=== PATIENT | female | born 1945 | race Caucasian/White ===

== ENCOUNTER 2020-07-30 13:02 | Outpatient (REF) | payer MEDICARE, MEDICAID, SELFPAY ==
--- NOTE | 2020-07-30 15:44 | MHC.AU.ANR ---
Adult Audiological Evaluation Date of Visit: 07/30/20 Reason for Appointment: Audiological evaluation due to decreased hearing. Ms. Solis reports that she previously used hearing aids from [facility] but hasn't had them for a while. She notes difficulties hearing and understanding speech in most situations. Does patient feel they have a hearing loss?: Yes If Yes, Which Ear?: Both Ears Has hearing been tested previously?: Yes Previous Hearing Test Results: Previously tested and diagnosed with a hearing loss at [facility]. Records not available to be reviewed today. Hearing Handicap Inventory: HHIE SCORE: 36 Based on HHIE score, patient has: Severe perceived hearing handicap Ear History: Family History of Hearing Loss?: Yes: Sister Medical History: Medical History: Headache, High Blood Pressure Medical History (Other): Cerebral Palsy, hospitalized for a gastro obstruction 07/18/20 Otoscopy: Right Ear: Unremarkable Left Ear: Unremarkable Tympanometry: Tympanometry performed due to: To assess integrity of the middle ear system Right Ear: Normal Middle Ear System (Type A) Left Ear: Normal Middle Ear System (Type A) Hearing Evaluation: Transducer(s) Used: Insert Earphones, Bone Conduction Method: Conventional Audiometry Stimuli Used: Pure Tones Right Ear: Description of Hearing: Mild sloping to moderately severe sensorineural hearing loss. Left Ear: Description of Hearing: Mild sloping to moderately severe sensorineural hearing loss. Speech Recognition Threshold (SRT): Method Used: Monitored Live Voice Stimuli Used: Spondee Words Right Ear: 55 dBHL Left Ear: 55 dBHL Word Discrimination: Method: Recorded Lists Word Lists Used: NU-6 Right Ear: 72% at 80 dBHL Left Ear: 48% at 80 dBHL Recommendations: Audiological re-evaluation in one year. Trial with amplification is recommended. Medical clearance from a physician is required before fitting. Hearing Aid Fitting will be scheduled when all materials arrive. See Hearing Aid Evaluation report for more information. Diagnosis: Primary Diagnosis: H90.3 Bilateral Sensorineural Hearing Loss Services Performed: Services Performed: Comprehensive Audiological Evaluation (CPT 32813) Tympanometry (CPT 29909) Signature: Provider: Joe Zapata, CCC-A
--- NOTE | 2020-07-30 15:45 | MHC.AU.MED ---
Medical Clearance for Hearing Instrumentation Date: 07/30/20 Patient Name: Rain Solis Date of : 1945 Referring Provider: Claudio Walton MD We have seen your patient on 07/30/20 and have determined that they are a candidate for amplification (See accompanying report). Specifically, they would benefit from: Hearing aid use in both ears There is a statute that addresses Medical Evaluation Requirements prior to fitting a patient with a hearing aid. According to [place] statute 265 CMR:6.03(1), (a) General. Except as provided in 265 CMR 6.03(1)(b), a hearing therapy teacher shall not sell a hearing aid unless the prospective user has presented to the hearing therapy teacher a written statement signed by a licensed physician that states that the patient's hearing loss has been medically evaluated and the patient may be considered a candidate for a hearing aid. The medical evaluation must have taken place within the preceding six months. Please note: Due to the [place] Statute referenced above, we cannot accept a signature other than that of a licensed physician. RAILROAD SHOP INSPECTOR and PA signatures cannot be accepted. I am in agreement with the above recommendation. There is no medical contraindication for hearing instrumentation. Physician Signature Date Physician Name (Printed)
--- NOTE | 2020-07-30 15:45 | MHC.AU.HAS ---
Hearing Aid Evaluation Date of Visit: 07/30/20 Historical Information: Description of Hearing: Mild sloping to moderate sensorineural hearing loss bilaterally. Current personal amplification information, if applicable: Previously used [employer] BTEs. Summary: Ms. Solis was diagnosed with hearing loss today and binaural amplification is recommended to facilitate improved communication. Patient has Cerebral Palsy and has dexterity problems. Recommend rechargeable ITE style hearing aids. She was agreeable to this recommendation. Hearing Aid Prescription: Right ear: Chief Nursing Officer: [facility] Lab Model: Jayce 1600 ITE-R Battery Size: Rechargeable Color: Drexel Left ear: Chief Nursing Officer: [facility] Lab Model: Jayce 1600 ITE-R Battery Size: Rechargeable Color: Drexel Action Taken/Action Needed: Earmold Impressions Taken. Medical Clearance to be requested from PCP/ENT. Hearing Fitting to be scheduled when materials arrive. Aids will be ordered once MD clearance is received. PAGE in hold drawer. Signature: Provider: Joe Zapata, CCC-A
== END 2020-07-30 13:03 | disposition home or self-care (01) ==
LOC: HO.SH 13:02
PROVIDERS: Visit Provider Internal Medicine
DX: Z46.1 Encounter for fitting and adjustment of hearing aid (principal); H90.3 Sensorineural hearing loss, bilateral
CPT/HCPCS: 92557; 92567; 92591; V5275

== ENCOUNTER 2020-11-12 09:46 | Outpatient (REF) | payer MEDICARE, MEDICAID, SELFPAY | END 2020-11-12 09:47 | disposition home or self-care (01) | LOC: HO.HAP 09:46 | PROVIDERS: Visit Provider Internal Medicine | DX: Z46.1 Encounter for fitting and adjustment of hearing aid (principal); H90.3 Sensorineural hearing loss, bilateral | CPT/HCPCS: V5011; V5020; V5160; V5260 ==

== ENCOUNTER 2020-11-19 14:12 | Outpatient (REF) | payer MEDICARE, MEDICAID, SELFPAY | END 2020-11-19 14:13 | disposition home or self-care (01) | LOC: HO.HAP 14:12 | PROVIDERS: Visit Provider Internal Medicine | DX: Z13.89 Encounter for screening for other disorder (principal) ==

== ENCOUNTER 2024-04-16 10:00 | Emergency (ER) | payer MEDICARE, MEDICAID, SELFPAY ==
--- NOTE | ~2024-04-16 | CT_ITS ---
CLINICAL HISTORY: right side neck painfull mass CT soft tissue neck with contrast Comparison: None Findings: The right parotid gland is enlarged and increased in attenuation with adjacent fat stranding. The right submandibular gland is mildly enlarged with adjacent fat stranding, favored to be reactive. In the region of the right parotid duct there is linear increased attenuation measuring 1.2 cm in length which could be stones within the duct, soft tissue calcification or calcified atherosclerotic disease (series 9, image 32). There is similar linear increased attenuation on the left measuring up to 1.0 cm in length. No acute findings in the left parotid and submandibular glands. No fluid collection. Normal pharyngeal mucosa, oral cavity and larynx. Cervical lymph nodes measure up to 9 mm in short axis, reactive. No suspicious lymph nodes. Unremarkable thyroid. Moderate calcified atherosclerotic disease. Normal carotid space. Ground-glass opacity in the right upper lobe measures up to 5 mm, likely infectious/inflammatory. Linear consolidation in the superior segment of the right lower lobe could be subsegmental atelectasis or scarring. Suspect air trapping. The lung apices are clear. Impression: Right parotitis. This document has been electronically signed by: Gerda Pisano MD on 04/16/2024 13:38:07
--- NOTE | ~2024-04-16 | CT_ITS ---
CLINICAL HISTORY: poor historian with severe abd pain CT abdomen and pelvis without contrast Comparison: None Findings: Subsegmental atelectasis versus scarring at the lung bases. Moderate elevation of the right hemidiaphragm. Unremarkable gallbladder. Thick-walled bladder. No bladder distention. The anterior right aspect of the bladder protrudes towards an anterior abdominal wall hernia without entering the hernia. No bladder stone. Severe bilateral hydroureteronephrosis with thickening of mucosa in the renal pelvises and ureters. No ureteral stone. No nephrolithiasis. Status post hysterectomy. The other solid organs are unremarkable. Small hiatal hernia. Moderately increased stool quantity. The rectum and distal sigmoid colon are distended with stool, measuring up to 9.0 cm in transverse dimension. There is mild associated wall thickening. There is an anterior abdominal hernia to the right of midline which contains small bowel and colon. A normal appendix is likely identified. No secondary signs of acute appendicitis. Colonic diverticulosis. No aneurysm. Moderate to severe calcified atherosclerotic disease. No lymphadenopathy. No ascites. No acute osseous abnormality. Impression: Severe bilateral hydroureteronephrosis. Wall thickening of the mucosa of the renal pelvises, ureters and bladder could be secondary to infection. Correlate with urinalysis. No urinary tract stone. Distention of the distal sigmoid colon and rectum with stool may indicate fecal impaction. There is mild associated wall thickening which could be secondary to stercoral colitis. This document has been electronically signed by: Gerda Pisano MD on 04/16/2024 14:08:11
[2024-04-16 10:06] VITALS: BP 131/72; PULSE 74; O2SAT 94
[2024-04-16 10:09] VITALS: BP 121/55; PULSE 75; RESP 18; O2SAT 94; BMI 32.8
--- NOTE | 2024-04-16 10:33 | ED.GENADULT ---
HPI - General Adult General Chief complaint: General Medical Stated complaint: L NECK PAIN/SWELLING,LOW ABD PAIN FROM SNF PER EMS Time Seen by Provider: 04/16/24 10:18 Source: patient, EMS and RN notes reviewed Mode of arrival: EMS Limitations: no limitations History of Present Illness ED Provider: DR. Ferguson HPI narrative: This is a 78-year-old female brought in from intermediate by EMS for evaluation of new tender mass on the right side of the neck, abdominal pain, increase vaginal discharge. Patient with PMH of anxiety, cognitive functions and awareness disorder, type 2 DM, patient is able to give limited history stated that she had a Mass to the right side of the neck that is tender to touch, no fever, no chills, no difficulty breathing. Patient also is complaining of abdominal pain which unable to give more history about it. Related Data Previous Rx's ?Medication ?Instructions ?Recorded cephalexin 500 mg capsule 500 mg PO Q6H 10 days #40 caps 04/16/24 Allergies Allergy/AdvReac Type Severity Reaction Status Date / Time aspirin [ASPIRIN] Allergy Unknown VOMITING Verified 04/16/24 12:05 ibuprofen [IBUPROFEN] Allergy Unknown VOMITING Verified 04/16/24 12:05 oxycodone [OXYCODONE] Allergy Unknown UNKNOWN Verified 04/16/24 12:05 Review of Systems Review of Systems: All other systems are reviewed and are negative Constitutional: Reports as per HPI and Reports no additional constitutional complaints Eyes: Reports as per HPI and Reports no additional eye complaints Reports system reviewed and no additional complaints, except as documented Cardiovascular: Reports as per HPI and Reports no additional cardiovascular complaints Respiratory: Reports as per HPI and Reports no additional respiratory complaints Gastrointestinal: Reports as per HPI and Reports no additional gastrointestinal complaints Genitourinary: Reports no additional female genitourinary complaints Musculoskeletal: Reports no additional musculoskeletal complaints Skin/Breast: Reports system reviewed and no additional complaints, except as docu Psychiatric: Reports no additional psychiatric complaints Endocrine: Reports no additional endocrine complaints Hematologic/Lymphatic: Reports no additional hematologic/lymphatic complaints Allergic/Immunologic: Reports no additional allergic/immunologic complaints Reports system reviewed and no additional complaints, except as documented and Reports Abnormal speech present PMFSH Social History Social History Smoked in Last 30 Days: No Use of substances other than those prescribed or required for medical reasons: No Advance Directives: No Advance Directives Information Provided: No Physical Exam ED Vital Signs: Vital Signs - 24 hr 04/16/24 10:09 04/16/24 11:03 04/16/24 12:08 Temperature 98.2 F Pulse Rate 75 79 Respiratory Rate 18 18 18 Blood Pressure 121/55 L 102/66 Pulse Oximetry 94 94 Oxygen Delivery Method Room Air Room Air 04/16/24 15:20 Temperature Pulse Rate 78 Respiratory Rate 18 Blood Pressure 125/56 L Pulse Oximetry 95 Oxygen Delivery Method Room Air BMI result Body Mass Index 32.8 Vital signs have been reviewed and appear to be correct. Blood pressure elevated. Heart rate normal. Respiratory rate normal. Temperature normal. Oxygen saturation normal. Appearance: Alert. No acute distress. Head: Normal external exam. Normocephalic. Atraumatic. No Garrison signs noted. No raccoon eyes noted Eyes: PERRLA. EOMI. Conjunctiva and sclera normal. Eyelids normal. ENT: TM's Normal. Pharynx normal. Uvula midline. Moist mucous membranes. No trismus noted. No drooling noted. No muffled voice noted. Neck: Normal inspection. Neck supple. FROM. No adenopathy. Thyroid Normal. No meningeal signs. neck mass about 7 x 10 cm involving a right side of the neck, mass is tender to touch, ill-defined, no fluctuation. Patent airway, speak in full sentence, able to swallow. CVS: Normal heart rate and rhythm. Heart sound normal. No murmurs noted. Pulses normal throughout. Respiratory: No respiratory distress. Painless inspiration. Breath sounds normal. No wheezes/rales/rhonchi noted. Chest nontender. No accessory muscle usage noted or decreased air movement noted. Abdomen: Soft and nontender. Bowel sounds normal in all 4 quadrants. No distention noted. No organomegaly noted. No visible injury noted. Back: No CVA tenderness. Full range of motion noted. Skin: Skin warm and dry. Normal skin color. Normal skin turgor. No rashes/lesions/lacerations noted. Extremities: No lower extremity edema. Extremities exhibit normal range of motion. Extremities nontender. Neuro: Cranial nerve exam: II-XII are grossly intact No motor deficit. No sensory deficit. Reflexes normal. Course Reevaluation(s) Reevaluation #1: Right parotitis and UTI with no sepsis. Start the patient on Keflex should give double coverage for pancreatitis and UTI. patient received 1 dose of ceftriaxone in the ED. Time: 16:15 Medications Administered Discontinued Medications Generic Name Dose Route Start Last Admin Trade Name Freq PRN Reason Stop Dose Admin Ceftriaxone Sodium 1 gm 04/16/24 11:43 04/16/24 12:06 Ceftriaxone Sodium 1 Gm Vial IVPUSH 04/16/24 11:44 1 gm ONCE ONE Administration Sodium Chloride 1,000 mls @ 999 mls/hr 04/16/24 11:43 04/16/24 15:07 Ns IV 04/16/24 12:43 Infused .Q1H1M ONE Infusion Medical Decision Making Differential Diagnosis Differential Diagnoses: The differential diagnosis associated with the presentation includes (UTI, pyelonephritis, obstructive uropathy, lymphadenopathy, parotitis.) Admission/Observation Consideration of admission/observation: Escalation of care including admission/observation considered Lab Data MDM Lab Attestation statement: I reviewed the patient's lab results. 04/16/24 10:52 04/16/24 11:26 Labs: Lab Results 04/16/24 04/16/24 04/16/24 Range/Units 10:52 11:26 12:04 WBC 17.9 H (4.8-10.8) X10*3/uL RBC 3.98 L (4.20-5.50) X10*6/uL Hgb 10.5 L (12.0-16.0) g/dl Hct 34.0 L (37.0-47.0) % MCV 85.4 (80.0-98.0) fL MCH 26.4 L (27.0-33.0) pg MCHC 30.9 L (31.0-35.0) g/dl RDW 13.2 (11.0-16.0) % Plt Count 481 H (160-400) X10*3/uL MPV 9.2 L (9.4-12.3) fL Immature Gran % (Auto) 0.6 H (0.0-0.4) % Neut % (Auto) 79.2 H (45-73) % Lymph % (Auto) 10.3 L (20-40) % [place] % (Auto) 8.2 (2-11) % Eos % (Auto) 1.3 (0-4) % Baso % (Auto) 0.4 (0-2) % Lymph # (Auto) 1.8 (1.2-4.9) X10*3/uL [place] # (Auto) 1.5 H (0.1-1.2) X10*3/uL Eos # (Auto) 0.2 (0.0-0.4) X10*3/uL Baso # (Auto) 0.1 (0.0-0.2) X10*3/uL Abs Immat Gran (auto) 0.10 H (0.00-0.03) X10*3/uL Absolute Neuts (auto) 14.2 H (2.0-8.3) x10*3/uL Absolute Nucleated RBC 0.000 (0.0-0.012) X10*3/uL Nucleated RBC % (auto) 0.0 (0.0-0.2) /100WBC Sodium 145 (135-145) mmol/L Potassium 4.6 (3.3-5.1) mmol/L Chloride 114 H (96-108) mmol/L Carbon Dioxide 19 L (22-29) mmol/L Anion Gap 17 (12-20) BUN 83 H (9-16) mg/dL Creatinine 2.17 H (0.5-1.4) mg/dL Estim Creat Clear Calc 22.6 Estimated GFR 22 Random Glucose 122 H (60-115) mg/dL Lactic Acid 0.8 (0.5-2.0) mmol/L Calcium 10.6 H (8.4-10.2) mg/dL Total Bilirubin 0.2 (0.0-1.0) mg/dL Direct Bilirubin < 0.2 (0.0-0.5) mg/dL AST 13 (5-31) U/L ALT < 6 (0-31) U/L Alkaline Phosphatase 98 (39-117) U/L Troponin I High Sens < 2.7 (<3.5-17.0) ng/L Total Protein 9.2 H (6.5-8.0) g/dL Albumin 3.6 (3.5-5.0) g/dL Lipase 55 (8-78) U/L Urine Color Yellow Urine Appearance Turbid Urine pH 8.5 (5.0-9.0) Ur Specific [place] 1.020 (1.005-1.025) Urine Protein 300 (3+) H (Neg-Trace) mg/dL Urine Glucose (UA) Negative (Negative) mg/dL Urine Ketones Negative (Negative) mg/dL Urine Blood Large (3+) H (Negative) Urine Nitrite Negative (Negative) Ur Leukocyte Esterase Large (3+) H (Negative) Urine RBC >20 H (0-2) /HPF Urine WBC >50 H (0-5) /HPF Ur Squamous Epith Cells 3-5 (0-2) /HPF Urine Bacteria 4+ (None Seen) Hyaline Casts >20 (0-2) /LPF Influenza Type A (PCR) NEGATIVE (Negative) Influenza Type B (PCR) NEGATIVE (Negative) RSV RNA Qual (PCR) NEGATIVE (Negative) SARS-CoV-2 RNA (RT-PCR) NEGATIVE (Negative) Independent Interpretation I performed an independent interpretation of an: CT Scan (Soft tissue neck and abdomen and pelvis: Parotitis/Severe bilateral hydroureteronephrosis. Wall thickening of the mucosa of the renal pelvises, ureters and bladder could be secondary to infection. Correlate with urinalysis. No urinary tract stone. Distention of the distal sigmoid colon and rectum) Discharge Plan Discharge Clinical Impression: Acute parotitis, Acute UTI Patient Disposition: Xfer [facility] Instructions: Urinary Tract Infection in Women (ED), Sialoadenitis (ED) Prescriptions: New cephalexin 500 mg capsule 500 mg PO Q6H 10 Days Qty: 40 0RF Referrals: Margie Noguera MD [Primary Care Provider] - Print Language: Syrian
[2024-04-16 11:00] LABS: MANUAL DIFF FLAG NO
[2024-04-16 11:03] VITALS: RESP 18; TEMP 36.8
[2024-04-16 11:03] LABS: Basophils Absolute Auto 0.1 X10*3/uL (0.0-0.2); Basophils Percent Auto 0.4 % (0-2); Eosinophils Absolute Auto 0.2 X10*3/uL (0.0-0.4); Eosinophils Percent Auto 1.3 % (0-4); Hemoglobin 10.5 g/dl (12.0-16.0); Imm Gran Pct Auto 0.6 % (0.0-0.4); Lymphocytes Absolute Auto 1.8 X10*3/uL (1.2-4.9); Lymphocytes Percent Auto 10.3 % (20-40); Mean Corpuscular HGB Conc 30.9 g/dl (31.0-35.0); Mean Corpuscular Hemoglobin 26.4 pg (27.0-33.0); Mean Corpuscular Volume 85.4 fL (80.0-98.0); Mean Platelet Volume 9.2 fL (9.4-12.3); Monocytes Absolute Auto 1.5 X10*3/uL (0.1-1.2); Monocytes Percent Auto 8.2 % (2-11); Neutrophils Absolute Auto 14.2 x10*3/uL (2.0-8.3); Neutrophils Percent Auto 79.2 % (45-73); Platelet Count 481 X10*3/uL (160-400); Red Blood Count 3.98 X10*6/uL (4.20-5.50); Red Cell Distribution Width 13.2 % (11.0-16.0); White Blood Count 17.9 X10*3/uL (4.8-10.8)
[2024-04-16 11:04] LABS: Appearance Urine Turbid; Color Urine Yellow; Glucose Urine UA Negative (Negative); Leukocyte Esterase Urine Large (3+) (Negative); Nitrite Urine Negative (Negative); PH 8.5 (5.0-9.0); UMIC TRIGGER UACC YES; Urine Blood Large (3+) (Negative); Urine Ketones Negative (Negative); Urine Protein 300 (3+) mg/dL (Neg-Trace)
--- NOTE | 2024-04-16 11:12 | PC.NURSE ---
Pt presents to ED via EMS from [facility], per staff pt has had increase in vaginal discharge, lower ABD pain and swelling/ mass to right side of neck all starting last night at some time. Pt is alert, some confusion at baseline, hx of CP and TBI. Breathing even and unlabored, skin dry and pale. Noted to have significant swelling to right side of neck, no difficulties breathing or swallowing.
[2024-04-16 11:18] LABS: Bacteria Urine 4+ (None Seen); Hyaline Casts Urine >20 /LPF (0-2); RBC Urine >20 /HPF (0-2); UACC Culture Trigger YES; WBC Urine >50 /HPF (0-5)
[2024-04-16 11:45] LABS: Influenza A PCR NEGATIVE (Negative); Influenza B PCR NEGATIVE (Negative); Resp Syncy Virus RNA Qual PCR NEGATIVE (Negative); SARS COV2 PCR INHOUSE NEGATIVE (Negative)
[2024-04-16 11:55] LABS: Alanine Aminotransferase < 6 U/L (0-31); Albumin Level 3.6 g/dL (3.5-5.0); Alkaline Phosphatase 98 U/L (39-117); Anion Gap 17 (12-20); Aspartate Amino Transferase 13 U/L (5-31); Bilirubin Direct < 0.2 mg/dL (0.0-0.5); Bilirubin Total 0.2 mg/dL (0.0-1.0); Blood Urea Nitrogen 83 mg/dL (9-16); Calcium 10.6 mg/dL (8.4-10.2); Carbon Dioxide 19 mmol/L (22-29); Chloride 114 mmol/L (96-108); Creatinine Clr Calc Pharmacy 22.6; Estimated Glomerular Filt Rate 22; Glucose Random 122 mg/dL (60-115); Lipase 55 U/L (8-78); Potassium 4.6 mmol/L (3.3-5.1); Sodium 145 mmol/L (135-145); Total Protein 9.2 g/dL (6.5-8.0)
[2024-04-16 12:04] LABS: Troponin-I High Sensitivity < 2.7 ng/L (<3.5-17.0)
[2024-04-16] MEDS: 0.9 % Sodium Chloride 1,000 ML 999 ML IV (12:05)
[2024-04-16] MEDS: cefTRIAXone sodium 1 GM VIAL IVPUSH (12:06)
[2024-04-16 12:08] VITALS: BP 102/66; PULSE 79; RESP 18; O2SAT 94
[2024-04-16 12:25] LABS: Lactic Acid 0.8 mmol/L (0.5-2.0)
[2024-04-16 15:20] VITALS: BP 125/56; PULSE 78; RESP 18; O2SAT 95
[2024-04-16 17:00] VITALS: BP 127/56; PULSE 68; RESP 16; TEMP 36.9; O2SAT 94
[2024-04-20 13:21] LABS: Glucose, Whole Blood 138 mg/dL (60-115)
== END 2024-04-16 17:15 | disposition skilled nursing facility (03) ==
PROVIDERS: Emergency Provider Emergency Medicine; PCP Internal Medicine
DX: M54.2 Cervicalgia (principal)
CPT/HCPCS: 0241U; 36415; 70490; 74176; 80048; 80076; 81001; 81003; 83605; 83690; 84484; 85025; 87040; 87086; 99285; J0696

== ENCOUNTER → 2024-04-16 10:29 | Outpatient (BNV) | payer MEDICARE, MEDICAID, SELFPAY | PROVIDERS: Emergency Provider Emergency Medicine; PCP Internal Medicine; Visit Provider Radiology Diagnostic Radiology | DX: N13.732 Vesicoureteral-reflux with reflux nephropathy with hydroureter, bilateral (principal); K11.8 Other diseases of salivary glands | CPT/HCPCS: 70491; 74176 ==

== ENCOUNTER 2024-04-19 13:03 | Inpatient (IN) | payer MEDICARE, MEDICAID, SELFPAY ==
[2024-04-19] VITALS (12 sets, daily range): BP systolic 127–200; BP diastolic 56–98; PULSE 64–97; RESP 12–25; TEMP 36.2–39.2; O2SAT 89–100; BMI 30.9
--- NOTE | ~2024-04-19 | CT_ITS ---
CLINICAL HISTORY: AMS CT head without contrast. COMPARISON: None FINDINGS: The visualized paranasal sinuses are clear. The mastoid air cells are clear. No calvarial fracture. Atherosclerotic intracranial vasculature. No evidence for mass or mass effect. No intracranial hemorrhage or abnormal extra-axial fluid collection. No CT evidence of acute infarct. The ventricles are proportional with the degree of [id number] global cerebral volume loss without evidence of hydrocephalus. Basilar cisterns are patent. There are periventricular areas of low attenuation compatible with mild white matter small vessel disease. Posterior fossa appears unremarkable. IMPRESSION: 1. No acute intracranial findings. This document has been electronically signed by: Timmy Valdez MD on 04/19/2024 15:49:56
--- NOTE | ~2024-04-19 | CT_ITS ---
CLINICAL HISTORY: worsening R sided neck mass, altered CT soft tissue neck without contrast. COMPARISON: CT soft tissue neck dated 04/16/24 at 12:30 EST FINDINGS: There is edema within and adjacent to the right parotid gland extending within the subcutaneous soft tissues along the most inferior aspect. No organizing fluid collection identified. Similar appearance of linear calcification measuring 0.2 cm in the region of the right parotid duct (series 6/coronal, image 37). There is a similar linear calcification on the left measuring 1.0 cm (series 6, image 34). Parotid duct is not dilated. Visualized lung apices are unremarkable. Normal thyroid gland. Mild enlargement of the right submandibular gland with the adjacent edema Orbital soft tissues are unremarkable. Parapharyngeal fat pads are preserved. Visualized paranasal sinuses and mastoid air cells are clear. Normal epiglottis. Visualized portions of the trachea and esophagus are unremarkable. No supraclavicular lymphadenopathy. Multiple normal-sized jugular chain lymph nodes, [id number]-left, likely reactive. Calcified plaque present at the carotid bulb on the right. Visualized intracranial structures are unremarkable. Straightening of the normal cervical lordosis. Advanced multilevel cervical spondylosis. Patient is edentulous. No acute fracture identified. IMPRESSION: 1. Right-sided parotitis with question mild right submandibular sialadenitis, similar to prior imaging. No organizing fluid collection identified. Linear calcification measuring 1.2 cm in the region of right parotid duct may represent a sialolith however parotid duct is not dilated. This appears stable from prior imaging. 2. Multiple normal-sized jugular chain lymph nodes, right more so than left, likely reactive. This document has been electronically signed by: Timmy Valdez MD on 04/19/2024 15:49:28
--- NOTE | ~2024-04-19 | XR_ITS ---
CLINICAL HISTORY: weakness ; attempted to fix rotation of PT in bed, best image obtained. Single view of the chest. COMPARISON: None FINDINGS: Patient positioning and overlying soft tissue mildly limits evaluation. Borderline cardiomegaly. Tortuous atherosclerotic thoracic aorta. Low lung volumes. No consolidation. No definite pleural effusion. No pneumothorax. No acute fracture identified. IMPRESSION: 1. Technically limited study secondary to patient positioning. 2. Low lung volumes. No consolidation. This document has been electronically signed by: Timmy Valdez MD on 04/19/2024 14:19:07
--- NOTE | 2024-04-19 13:20 | ECG_ITS ---
Test Reason : WEAKNESS Blood Pressure : / mmHG Vent. Rate : 068 BPM Atrial Rate : 068 BPM P-R Int : 164 ms QRS Dur : 086 ms QT Int : 398 ms P-R-T Axes : -29 011 -24 degrees QTc Int : 423 ms Normal sinus rhythm Nonspecific T wave abnormality Abnormal ECG No previous ECGs available Referred By: Dorothy Galloway Electronically Signed By:USMAN STINSON MD
[2024-04-19] MEDS: Acetaminophen 1,000 MG/100 ML PIGGYBACK 400 MG IV ×2 (13:35→21:32)
[2024-04-19] MEDS: Lactated Ringers 1,000 ML 999 ML IV (13:35)
--- NOTE | 2024-04-19 13:39 | ED_ITS ---
HPI - Female Genitourinary General Chief complaint: Urogenital-Female Stated complaint: AMS, ?SEPSIS, RECENT UTI DIAG PER EMS Time Seen by Provider: 04/19/24 13:18 Source: EMS and old records reviewed Mode of arrival: EMS Limitations: altered mental status History of Present Illness ED Provider: KITTY SIN Narrative: 78 yo female with PMH of cerebral palsy, CHF, GERD, ICH, DM2, HTN, urinary retention, aniety, depression, FTT, diverticulitis, on eliquis has hx of thrombocytosis unclear cause who comes in altered today after visit here 04/16 dx with acute R parotitis and UTI - WBC count 17, given IV ceftriaxone and DC on cephalexin. She reportedly was cheeking the antibiotic. Had CT scan done on 04/16 as well R parotid gland infection no abscess, ?stones, CT scan of abdomen severe bilateral hydroureteronephrosis and mucosa thickening of urinary system - UA positive but culture contamined. She is back after staff felt she was altered today and temp 102. On arrival she localizes to pain and withdraws. She is not answering questions. MD elicited complaint: other (fever, AMS) Onset (ago): day(s) (today this AM) Severity: severe Vaginal discharge: none Vaginal bleeding: none Relieving factors: none Associated symptoms: loss of appetite, weakness and fever Treatment prior to arrival: none Related Data Previous Rx's ?Medication ?Instructions ?Recorded cephalexin 500 mg capsule 500 mg PO Q6H 10 days #40 caps 04/16/24 Allergies Allergy/AdvReac Type Severity Reaction Status Date / Time aspirin [ASPIRIN] Allergy Unknown VOMITING Verified 04/19/24 13:11 ibuprofen [IBUPROFEN] Allergy Unknown VOMITING Verified 04/19/24 13:11 oxycodone [OXYCODONE] Allergy Unknown UNKNOWN Verified 04/19/24 13:11 Review of Systems 2 Review of Systems: ROS unable to be obtained due to altered mental status [facility] Past Medical History Attestation statement: The following information was validated with the patient. Source: old records reviewed Medical History HTN (hypertension) TBI (traumatic brain injury) Encephalopathy acute Anxiety and depression [facility] current use of anticoagulant Thrombocytosis DM2 (diabetes mellitus, type 2) Cerebral palsy Social History Social History (Updated 04/19/24 @ 13:49 by Dorothy Galloway DO) Patient Tobacco Use Status: Tobacco use Unknown Advance Directives: No Advance Directives Information Provided: No Do you have a plan to hurt others: No Plan Physical Exam 2 Vital Signs: Vital Signs: Last Vital Signs Temp 99.9 F 04/19/24 15:57 Pulse 65 04/19/24 15:58 Resp 25 H 04/19/24 15:57 BP 193/86 H 04/19/24 15:58 Pulse Ox 100 04/19/24 15:57 O2 Del Method Nasal Cannula 04/19/24 15:57 O2 Flow Rate 2 04/19/24 15:57 BMI result Body Mass Index 30.9 Appearance:Somnolent, wakes to tactile stimuli. Mild acute distress. Eyes: Pupils equal, round and reactive to light. ENT: Pharynx dry MM Neck:R parotid area there is ttp and redness no stranding down the neck CVS: Normal heart rate and rhythm. Pulses normal. Respiratory: No respiratory distress. Breath sounds normal. Abdomen: Soft and nontender. does not grimace Skin: Skin warm and dry. Normal skin color. Normal skin turgor. Extremities: No lower extremity edema. atrophied extremities Neuro: cannot participate in exam Course Course Course Narrative: marked HTN will order US Medications Administered Discontinued Medications Generic Name Dose Route Start Last Admin Trade Name Freq PRN Reason Stop Dose Admin Piperacillin Sod/Tazobactam 100 mls @ 200 mls/hr 04/19/24 13:20 04/19/24 14:11 Sod 4.5 gm/ Sodium Chloride IV 04/19/24 13:49 Infused ONCE ONE Infusion Acetaminophen 1,000 mg in 100 mls @ 400 mls/hr 04/19/24 13:21 04/19/24 13:52 Ofirmev IV 04/19/24 13:35 Infused ONCE ONE Infusion Lactated Ringer's 1,000 mls @ 999 mls/hr 04/19/24 13:21 04/19/24 14:45 Lr IV 04/19/24 14:21 Infused .Q1H1M ONE Infusion Vancomycin HCl 2,000 mg in 500 mls @ 250 mls/hr 04/19/24 13:54 04/19/24 14:20 Vancomycin/Ns IV 04/19/24 15:53 250 mls/hr ONCE ONE Administration Labetalol HCl 5 mg 04/19/24 15:47 04/19/24 15:58 Labetalol Hcl 100 Mg/20 Ml Vial IVPUSH 04/19/24 15:48 5 mg ONCE ONE Administration Medical Decision Making Medical Decision Making [facility] Narrative: 78 yo female with PMH of cerebral palsy, CHF, GERD, ICH, DM2, HTN, urinary retention, aniety, depression, FTT, diverticulitis, on eliquis has hx of thrombocytosis here with c/o fever and AMS. At this time basic labs, cultures, CXR, CT scan of R parotid to look for abscess, empiric zosyn. IV tylenol and start on fluids. Suspect parotid infection urine culture was negative but CT scan of abdomen was concerning. Differential Diagnosis Differential Diagnoses: The differential diagnosis associated with the presentation includes parotid infection, UTI, viral infection, encephalopathy Admission/Observation Consideration of admission/observation: Escalation of care including admission/observation considered received a liter of NS, Na is 158, BP has been high I ordered low dose labetalol no hypotension and lactic acid is normal Consult Healthcare Provider Management of the patient was discussed with: Hospitalist (will admit) Lab Data [facility] Lab Attestation statement: I reviewed the patient's lab results. 04/19/24 13:39 04/19/24 13:39 Labs: Lab Results 04/19/24 04/19/24 Range/Units 13:39 13:45 WBC 22.3 H (4.8-10.8) X10*3/uL RBC 4.25 (4.20-5.50) X10*6/uL Hgb 11.0 L (12.0-16.0) g/dl Hct 36.8 L (37.0-47.0) % MCV 86.6 (80.0-98.0) fL MCH 25.9 L (27.0-33.0) pg MCHC 29.9 L (31.0-35.0) g/dl RDW 13.7 (11.0-16.0) % Plt Count 574 H (160-400) X10*3/uL MPV 9.3 L (9.4-12.3) fL Immature Gran % (Auto) 2.4 H (0.0-0.4) % Neut % (Auto) 82.1 H (45-73) % Lymph % (Auto) 11.4 L (20-40) % [place] % (Auto) 3.8 (2-11) % Eos % (Auto) 0.0 (0-4) % Baso % (Auto) 0.3 (0-2) % Lymph # (Auto) 2.5 (1.2-4.9) X10*3/uL [place] # (Auto) 0.9 (0.1-1.2) X10*3/uL Eos # (Auto) 0.0 (0.0-0.4) X10*3/uL Baso # (Auto) 0.1 (0.0-0.2) X10*3/uL Abs Immat Gran (auto) 0.53 H (0.00-0.03) X10*3/uL Absolute Neuts (auto) 18.3 H (2.0-8.3) x10*3/uL Absolute Nucleated RBC 0.000 (0.0-0.012) X10*3/uL Nucleated RBC % (auto) 0.0 (0.0-0.2) /100WBC VBG pH 7.35 (7.32-7.43) VBG pCO2 32 mmHg VBG pO2 96 mmHg VBG HCO3 18 L (22-26) mmol/L VBG O2 Saturation 98.0 % VBG Base Excess -6.3 mmol/L Sodium 158 H (135-145) mmol/L Potassium 4.3 (3.3-5.1) mmol/L Chloride 130 H (96-108) mmol/L Carbon Dioxide 18 L (22-29) mmol/L Anion Gap 14 (12-20) BUN 89 H (9-16) mg/dL Creatinine 1.82 H (0.5-1.4) mg/dL Estim Creat Clear Calc 25.2 Estimated GFR 27 Random Glucose 164 H (60-115) mg/dL Lactic Acid 1.0 (0.5-2.0) mmol/L Calcium 10.3 H (8.4-10.2) mg/dL Magnesium 2.6 (1.6-2.6) mg/dL Total Bilirubin 0.2 (0.0-1.0) mg/dL Direct Bilirubin < 0.2 (0.0-0.5) mg/dL AST 15 (5-31) U/L ALT 7 (0-31) U/L Alkaline Phosphatase 101 (39-117) U/L Ammonia 42 (13-55) umol/L Troponin I High Sens 13.1 D (<3.5-17.0) ng/L C-Reactive Protein 6.63 H (< or = 0.50) mg/dL Total Protein 9.1 H (6.5-8.0) g/dL Albumin 3.6 (3.5-5.0) g/dL Lipase 41 (8-78) U/L Procalcitonin 0.09 ng/mL Urine Color Yellow Urine Appearance Turbid Urine pH 6.0 (5.0-9.0) Ur Specific [place] 1.015 (1.005-1.025) Urine Protein 300 (3+) H (Neg-Trace) mg/dL Urine Glucose (UA) Negative (Negative) mg/dL Urine Ketones Negative (Negative) mg/dL Urine Blood Large (3+) H (Negative) Urine Nitrite Negative (Negative) Ur Leukocyte Esterase Large (3+) H (Negative) Urine RBC 11-20 H (0-2) /HPF Urine WBC >50 H (0-5) /HPF Ur Squamous Epith Cells 0-2 (0-2) /HPF Urine Bacteria 4+ (None Seen) Hyaline Casts 0-2 (0-2) /LPF Influenza Type A (PCR) NEGATIVE (Negative) Influenza Type B (PCR) NEGATIVE (Negative) RSV RNA Qual (PCR) NEGATIVE (Negative) SARS-CoV-2 RNA (RT-PCR) NEGATIVE (Negative) Independent Interpretation I performed an independent interpretation of an: EKG, Plain X-Ray (no pneumonia) and CT Scan (R parotid infection but no abscess) Interpretation: Rate: Rhythm: [place]: Normal P waves. Normal [place]AY[place]. Normal QRS complex. ST T wave : qTC: prior studies: The study has been interpreted contemporaneously by me. . Radiology Impression Discussion of test interpretation with radiology: I have reviewed the radiologist's reading. Independent Historian Clinical information obtained from an independent historian. History obtained from or confirmed by: EMS External Record Review External record reviewed: Outpatient record Critical Care Time Critical Care Time Critical Care Time: Yes Total Critical Care Time: 45 Attestation: review of records, sepsis work up, family discussion, admisison, IV labetalol for persistent HTN on multiple rechecks I attest to this time spent taking care of the patient Discharge Plan Discharge Clinical Impression: Acute parotitis, Acute encephalopathy, Acute hypernatremia Elevated WBC count Qualifiers: Leukocytosis type: unspecified Qualified Code(s): D72.829 - Elevated white blood cell count, unspecified Fever Qualifiers: Fever type: unspecified Qualified Code(s): R50.9 - Fever, unspecified Patient Disposition: Admitted As Inpatient Print Language: Belarusian
[2024-04-19] MEDS: Piperacillin Sodium/Tazobactam 4.5 GM in 0.9 % Sodium Chloride 100 ML IV (13:41)
--- NOTE | 2024-04-19 13:45 | PC.NURSE ---
pt [facility] from [facility] as a sepsis alert - dx w/ UTI on 04/16 at [facility]. during ED visit, pt noted to have acute parotitis as well as a UTI. during ED visit, pt received IV abx. pt then discharged back to facility w/ PO abx after being medically cleared. today, family members visited pt at facility and noted pt to be difficult to arouse with a fever of 99 temporally. pt also found to be cheeking PO abx and not physically swallowing them. hx cerebral palsy - baseline leans to the right/baseline dysphagia. upon ED arrival - pt responsive to physical stimuli only. pt noted to have strong urine odor. rectal temp obtained/displayed 102.6 - otherwise vss and up to date. 20gIV in the left forearm via EMS - patent/intact. 18gIV in the right AC - labs obtained/sent to lab. pt currently on RA w/o difficulty - no sob/wob noted. respirations even/unlabored. plan of care ongoing.
[2024-04-19 13:48] LABS: MANUAL DIFF FLAG NO
[2024-04-19 13:49] LABS: Basophils Absolute Auto 0.1 X10*3/uL (0.0-0.2); Basophils Percent Auto 0.3 % (0-2); Hematocrit 36.8 % (37.0-47.0); Imm Gran Abs Auto 0.53 X10*3/uL (0.00-0.03); Imm Gran Pct Auto 2.4 % (0.0-0.4); Lymphocytes Absolute Auto 2.5 X10*3/uL (1.2-4.9); Lymphocytes Percent Auto 11.4 % (20-40); Mean Corpuscular HGB Conc 29.9 g/dl (31.0-35.0); Mean Corpuscular Hemoglobin 25.9 pg (27.0-33.0); Mean Corpuscular Volume 86.6 fL (80.0-98.0); Mean Platelet Volume 9.3 fL (9.4-12.3); Monocytes Absolute Auto 0.9 X10*3/uL (0.1-1.2); Monocytes Percent Auto 3.8 % (2-11); Neutrophils Absolute Auto 18.3 x10*3/uL (2.0-8.3); Neutrophils Percent Auto 82.1 % (45-73); Platelet Count 574 X10*3/uL (160-400); Red Blood Count 4.25 X10*6/uL (4.20-5.50); Red Cell Distribution Width 13.7 % (11.0-16.0); White Blood Count 22.3 X10*3/uL (4.8-10.8)
[2024-04-19 13:50] LABS: VBG Base Excess -6.3 mmol/L; VBG HCO3 18 mmol/L (22-26); VBG pCO2 32 mmHg; VBG pH 7.35 (7.32-7.43); VBG pO2 96 mmHg
[2024-04-19 13:50] LABS: Venous Blood Gas Refer to POC result
[2024-04-19 13:54] LABS: Ammonia 42 umol/L (13-55); Appearance Urine Turbid; Color Urine Yellow; Glucose Urine UA Negative (Negative); Leukocyte Esterase Urine Large (3+) (Negative); Nitrite Urine Negative (Negative); Specific Gravity - Urine 1.015 (1.005-1.025); UMIC TRIGGER UACC YES; Urine Blood Large (3+) (Negative); Urine Ketones Negative (Negative); Urine Protein 300 (3+) mg/dL (Neg-Trace)
[2024-04-19 14:01] LABS: Bacteria Urine 4+ (None Seen); Hyaline Casts Urine 0-2 /LPF (0-2); Squamous Epithelial Cell Urine 0-2 /HPF (0-2); UACC Culture Trigger YES; WBC Urine >50 /HPF (0-5)
[2024-04-19 14:08] LABS: Troponin-I High Sensitivity 13.1 ng/L (<3.5-17.0)
[2024-04-19 14:14] LABS: Alanine Aminotransferase 7 U/L (0-31); Albumin Level 3.6 g/dL (3.5-5.0); Alkaline Phosphatase 101 U/L (39-117); Anion Gap 14 (12-20); Aspartate Amino Transferase 15 U/L (5-31); Bilirubin Direct < 0.2 mg/dL (0.0-0.5); Bilirubin Total 0.2 mg/dL (0.0-1.0); Blood Urea Nitrogen 89 mg/dL (9-16); C Reactive Protein 6.63 mg/dL (< or = 0.50); Calcium 10.3 mg/dL (8.4-10.2); Carbon Dioxide 18 mmol/L (22-29); Chloride 130 mmol/L (96-108); Creatinine Clr Calc Pharmacy 25.2; Estimated Glomerular Filt Rate 27; Glucose Random 164 mg/dL (60-115); Lipase 41 U/L (8-78); Magnesium 2.6 mg/dL (1.6-2.6); Potassium 4.3 mmol/L (3.3-5.1); Sodium 158 mmol/L (135-145); Total Protein 9.1 g/dL (6.5-8.0)
--- NOTE | 2024-04-19 14:15 | PC.NURSE ---
pt noted to be 89% on RA. pt seems to be in no respiratory distress. pt positioned upright to promote patent airway. pt placed on 2L via NC - SPO2 @ 93%. provider notified/aware of results.
[2024-04-19] MEDS: vancomycin/NS 2,000 MG/500 ML PLAST..BAG 250 MG IV (14:20)
[2024-04-19 14:28] LABS: Procalcitonin 0.09 ng/mL
[2024-04-19 14:29] LABS: Influenza A PCR NEGATIVE (Negative); Influenza B PCR NEGATIVE (Negative); Resp Syncy Virus RNA Qual PCR NEGATIVE (Negative); SARS COV2 PCR INHOUSE NEGATIVE (Negative)
[2024-04-19] MEDS: Labetalol HCL 100 MG/20 ML VIAL IVPUSH (15:58)
--- NOTE | 2024-04-19 16:01 | PC.NURSE ---
pt becoming more responsive to verbal stimuli at this time. pt able to nod yes or no when answering questions. family remains bedside for support. pt also noted to be hypertensive. BP reassessed multiple times - pt remains hypertensive. provider notified/aware. medication administered per provider order. effectiveness pending. pt otherwise remains on 2L via NC - sitting upright to promote patent airway. no sob/wob noted. respirations even/unlabored. plan of care ongoing. call morales placed within reach.
--- NOTE | 2024-04-19 16:54 | P.HPHOSP_ITS ---
History of Present Illness Date of Service: 04/19/24 Chief Complaint: Altered mental status 78-year-old female with past medical history of cerebral palsy, CHF, GERD, ICH, diabetes mellitus type 2, hypertension, urinary retention, anxiety, depression, diverticulosis, failure to thrive on Eliquis with history of thrombocytosis was recently seen in emergency room on 04/16 was diagnosed to have right acute parotitis and UTI at that time WBC count was 17,000 patient was treated with 1 dose of IV ceftriaxone and [facility], CT scan of abdomen and pelvis on 04/16 showed severe bilateral hydro ureteral nephrosis mucosal thickening of urinary system, UA was positive however urine culture showed mixed bacteria, Patient unable to provide detailed history due to weakness confusion and hard of hearing, 2 daughters at bedside inform that patient was complaining of right facial pain, has decreased by mouth intake since discharge and has not taken her antibiotic this morning she was noted to be lethargic confused had a fever of 99 at prison, here in ED patient noted to have a temp of 102.6 degrees, WBC count is 22,000 platelets of 574 , hypernatremia, CT head showed no acute abnormality, chest x-ray is unremarkable, soft tissue neck showed mild right submandibular sialoadenitis, right acute parotitis, UA positive for 4+ bacteria greater than 50 WBC count in large leukocyte esterase, patient treated in the emergency room with IV fluids IV Zosyn, IV vancomycin, IV Tylenol and low-dose labetalol for high per tension patient is now being admitted to [facility] with acute toxic metabolic encephalopathy sepsis due to acute parotitis/UTI. Review of Systems 2 Review of Systems: Unable to obtain detailed review of system due to mental status [facility] Medical History HTN (hypertension) TBI (traumatic brain injury) Encephalopathy acute Anxiety and depression skilled nursing current use of anticoagulant Thrombocytosis DM2 (diabetes mellitus, type 2) Cerebral palsy Social History Household Members: Unknown / Unable to assess Housing: Unknown / Unable to assess Patient Tobacco Use Status: Tobacco use Unknown Smoked in Last 30 Days: No Use of substances other than those prescribed or required for medical reasons: No Advance Directives: No Advance Directives Information Provided: No Do you have a plan to hurt others: No Plan Recently lost weight without trying: No Patient : No service: No Meds Allergies Allergy/AdvReac Type Severity Reaction Status Date / Time aspirin [ASPIRIN] Allergy Unknown VOMITING Verified 04/19/24 13:11 ibuprofen [IBUPROFEN] Allergy Unknown VOMITING Verified 04/19/24 13:11 oxycodone [OXYCODONE] Allergy Unknown UNKNOWN Verified 04/19/24 13:11 Active Medications: Current Medications Acetaminophen (Acetaminophen 325 Mg Tablet) 650 mg PO Q6H PRN PRN Reason: Pain, Mild 1-3,fever,headache Calcium Carbonate (Calcium Carbonate 750 Mg Tab.Chew) 750 mg PO Q4H PRN PRN Reason: Heartburn Dextrose/Sodium Chloride (D51/2ns) 1,000 mls @ 80 mls/hr IVCONT .[id number] [facility] Magnesium Hydroxide (Milk Of Magnesia 30 Ml Oral.Susp) 30 ml PO DAILY PRN PRN Reason: Constipation Melatonin (Melatonin 3 Mg Tablet) 6 mg PO BEDTIME PRN PRN Reason: Insomnia Sodium Chloride (0.9 % Sodium Chloride Flush 3 Ml Syringe) 3 ml IVFLUSH QSHIFT [facility] Home Medications ?Medication ?Instructions ?Recorded ?Confirmed ?Last Taken ?Type acetaminophen 500 mg tablet 500 mg PO Q6H PRN Fever Or Pain 04/19/24 04/19/24 Unknown History aluminum-mag hydroxide-simethicone 15 ml PO QID PRN MILD INDIGESTION 04/19/24 04/19/24 Unknown History 200 mg-200 mg-20 mg/5 mL oral susp aluminum-mag hydroxide-simethicone 30 ml PO QID PRN MODERATE 04/19/24 04/19/24 Unknown History 200 mg-200 mg-20 mg/5 mL oral susp INDIGESTION apixaban 5 mg tablet (Eliquis) 5 mg PO BID 04/19/24 04/19/24 Unknown History atenolol 50 mg tablet 50 mg PO DAILY 04/19/24 04/19/24 Unknown History bisacodyl 10 mg rectal suppository 10 mg NM DAILY PRN Constipation 04/19/24 04/19/24 Unknown History clorazepate dipotassium 3.75 mg 3.75 mg PO BID 04/19/24 04/19/24 Unknown History tablet cranberry fruit 450 mg tablet 400 mg PO DAILY 04/19/24 04/19/24 Unknown History (cranberry) dextrose 40 % oral gel (Glucose 10 g PO ONCE PRN Hypoglycemia 04/19/24 04/19/24 Unknown History Gel) duloxetine 20 mg capsule,delayed 40 mg PO DAILY 04/19/24 04/19/24 Unknown History release glucagon 1 mg solution for 1 mg subcut ONCE PRN Hypoglycemia 04/19/24 04/19/24 Unknown History injection (GlucaGen HypoKit) magnesium hydroxide 400 mg/5 mL 30 ml PO DAILY PRN Constipation 04/19/24 04/19/24 Unknown History oral suspension (Milk of Magnesia) pregabalin 75 mg capsule 75 mg PO BID 04/19/24 04/19/24 Unknown History sodium phosphates 19 gram-7 118 ml NM DAILY PRN Constipation 04/19/24 04/19/24 Unknown History gram/118 mL enema (Fleet Enema) Physical Exam 2 Vital Signs and Narrative: Vital Signs: Last Vital Signs Temp 99.9 F 04/19/24 15:57 Pulse 68 04/19/24 16:35 Resp 16 04/19/24 16:35 BP 175/82 H 04/19/24 16:35 Pulse Ox 98 04/19/24 16:35 O2 Del Method Nasal Cannula 04/19/24 16:35 O2 Flow Rate 2 04/19/24 16:35 BMI result Body Mass Index 30.9 Const: Other: General resting comfortably in no acute distress. Dry mucous membrane Neck right parotid gland enlargement/firm nontender, no redness no JVD. CVS regular rate rhythm, Respiratory lungs clear to auscultation, no respiratory distress Gastrointestinal abdomen soft, non tender, bowel sounds audible, no guarding , no rigidity. Extremities no edema/atrophied extremities Neuro unable to perform Skin multiple small areas of bruising lower extremities Results Labs 04/20/24 07:53 04/20/24 08:44 Labs: Laboratory Results - last 24 hr 04/19/24 04/19/24 13:39 13:45 MCV 86.6 MCH 25.9 L MCHC 29.9 L RDW 13.7 Plt Count 574 H MPV 9.3 L Immature Gran % (Auto) 2.4 H Neut % (Auto) 82.1 H Lymph % (Auto) 11.4 L [place] % (Auto) 3.8 Eos % (Auto) 0.0 Baso % (Auto) 0.3 Lymph # (Auto) 2.5 [place] # (Auto) 0.9 Eos # (Auto) 0.0 Baso # (Auto) 0.1 Abs Immat Gran (auto) 0.53 H Absolute Neuts (auto) 18.3 H Absolute Nucleated RBC 0.000 Nucleated RBC % (auto) 0.0 VBG pH 7.35 VBG pCO2 32 VBG pO2 96 VBG HCO3 18 L VBG O2 Saturation 98.0 VBG Base Excess -6.3 Anion Gap 14 Estim Creat Clear Calc 25.2 Estimated GFR 27 Random Glucose 164 H Lactic Acid 1.0 Calcium 10.3 H Magnesium 2.6 Total Bilirubin 0.2 Direct Bilirubin < 0.2 AST 15 ALT 7 Alkaline Phosphatase 101 Ammonia 42 Troponin I High Sens 13.1 D C-Reactive Protein 6.63 H Total Protein 9.1 H Albumin 3.6 Lipase 41 Procalcitonin 0.09 Urine Color Yellow Urine Appearance Turbid Urine pH 6.0 Ur Specific [place] 1.015 Urine Protein 300 (3+) H Urine Glucose (UA) Negative Urine Ketones Negative Urine Blood Large (3+) H Urine Nitrite Negative Ur Leukocyte Esterase Large (3+) H Urine RBC 11-20 H Urine WBC >50 H Ur Squamous Epith Cells 0-2 Urine Bacteria 4+ Hyaline Casts 0-2 Influenza Type A (PCR) NEGATIVE Influenza Type B (PCR) NEGATIVE RSV RNA Qual (PCR) NEGATIVE SARS-CoV-2 RNA (RT-PCR) NEGATIVE Assessment and Plan (1) Acute hypernatremia: Status: Acute (2) Acute encephalopathy: Status: Acute (3) Elevated WBC count: Qualifiers: Leukocytosis type: unspecified Qualified Code(s): D72.829 - Elevated white blood cell count, unspecified Status: Acute (4) Acute parotitis: Status: Acute Plan 78-year-old female with past medical history of cerebral palsy, bed-bound, requires Bakari lift for transfer, prison resident, with multiple other medical issues including diabetes mellitus type 2, hypertension, urinary retention, anxiety depression, history of thrombocytosis on Eliquis was recently discharged from [facility] emergency room on 04/16 after being diagnosed with acute right parotitis however patient was unable to take by mouth antibiotics and was noted to have decreased by mouth intake therefore transferred to [facility] emergency room where patient noted to have sepsis likely due to acute parotitis and UTI Sepsis due to acute rt. parotitis and UTI Noted to have elevated WBC and fever, normal lactic acid No severe sepsis VITOR is improving Admit to telemetry, continue IV vancomycin and Zosyn initiated in ED on April 19 Follow urine culture and blood culture Acute toxic metabolic encephalopathy Likely due to infection and hypernatremia will treat and follow clinical course VITOR noted on 04/16 creatinine trending down family not aware of prior history of kidney disease, IV fluids and follow BMP, all meds renally dosed Acute hypernatremia Likely due to decreased by mouth intake will treat with IV fluids follow BMP closely Bilateral hydroureteronephrosis, no urinary stones noted Wall thickening of the mucosa of the renal pelvis/ureters and bladder question related to UTI Continue IV ceftriaxone follow urine and blood cultures Continue Hernandez catheter Stercoral colitis Distention of distal sigmoid colon and rectum noted on CT abdomen As per daughter has chronic constipation Treat with enema since NPO/stool softeners once able to take by mouth Hypertension noted to have elevated blood pressure will place on IV metoprolol, hold atenolol. Mood disorder on duloxetine 40 mg daily, pregabalin 75 mg b.i.d. and clorazepate 3.75 mg b.i.d. History of thrombocytosis unspecified on Eliquis DVT prophylaxis On Eliquis 5 mg b.i.d. since NPO will transition to Lovenox Full code Quality Stroke Does the patient have a stroke diagnosis?: No VTE Prior VTE?: No VTE Risk Level:: Medical - moderate - high VTE Device Contraindication: Treatment Not Indicated VTE Drug Contraindication: N/A - Med Ordered
--- NOTE | 2024-04-19 17:12 | PC.NURSE ---
18Fr silva catheter inserted at this time. 600ml of clear, dark yellow, foul smelling urine noted immediately post output. pt tolerated well.
[2024-04-19] MEDS: Dextrose 5 % and 0.45 % NaCl 1,000 ML 80 ML IVCONT (17:22)
[2024-04-19] MEDS: Sodium Phosphate,Mono-Dibasic 133 ML ENEMA PR (17:29)
[2024-04-19] MEDS: Metoprolol Tartrate 5 MG/5 ML VIAL 2.5 MG IVPUSH (17:29)
[2024-04-19] MEDS: Enoxaparin Sodium 80 MG/0.8 ML SYRINGE 70 MG SUBCUT (17:50)
[2024-04-19 18:02] LABS: INTERNATIONAL NORM RATIO 1.9 (0.9-1.1); Prothrombin Time 22.1 SEC (10.9-12.4)
[2024-04-19 18:05] LABS: Partial Thromboplastin Time 32.8 SEC (26.0-36.8)
--- NOTE | 2024-04-19 20:34 | PHA.PROG ---
Admission Date/Time: April 19, 2024 16:50 Indication: SEPSIS Weight in k.6 kg Adjusted body weight in Kg: [place] body weight in Kg: Obesity Dosing Indication % IBW: Serum Creatinine - Last 168 Hours 04/19/24 13:39 Creatinine 1.82 H Estimated CrCl and GFR - Last 168 Hours 04/19/24 13:39 Estim Creat Clear Calc 25.2 Estimated GFR 27 Vancomycin Loading Dose: 2000 MG Current Vancomycin Dosing Regimen: 750 MG Q24H Vancomycin Monitoring using AUC goal of 400 - 600 range with trough as surrogate marker: OOU=159 TROUGH=16.4 Date and Time for next Vancomycin Level to be drawn: 04/21/24 @1200 Pharmacist Comments on Vancomycin Plan: Vancomycin dosing will take advantage of [employer] as a clinical decision support tool that uses Bayesian modeling to calculate individual patient's pharmacokinetic parameters and forecast the patient's drug concentration time course with the target goal AUC 24 range of 400 - 600 mg/L/hr.
[2024-04-19] MEDS: Piperacillin Sodium/Tazobactam 3.375 GM in 0.9 % Sodium Chloride 50 ML IV (21:35)
--- NOTE | 2024-04-19 22:04 | PHA.MEDREC ---
Pharmacy Consult ? Medication Reconciliation Pharmacy has completed the medication reconciliation using list from [facility] and [facility].
[2024-04-20] VITALS: BP 106/53; PULSE 54; RESP 18; TEMP 36.4; O2SAT 98
[2024-04-20 04:00] VITALS: BP 141/65; PULSE 51; RESP 18; TEMP 36.6; O2SAT 99
[2024-04-20] MEDS: Piperacillin Sodium/Tazobactam 3.375 GM in 0.9 % Sodium Chloride 50 ML IV ×3 (04:15→19:56)
[2024-04-20] MEDS: Dextrose 5 % and 0.45 % NaCl 1,000 ML 80 ML IVCONT (04:16)
[2024-04-20 04:18] LABS: Glucose, Whole Blood 135 mg/dL (60-115)
[2024-04-20 07:50] VITALS: BP 135/59; PULSE 63; RESP 19; TEMP 36.3; O2SAT 97
[2024-04-20 08:03] LABS: Hematocrit 37.5 % (37.0-47.0); Hemoglobin 10.9 g/dl (12.0-16.0); Mean Corpuscular HGB Conc 29.1 g/dl (31.0-35.0); Mean Corpuscular Hemoglobin 26.3 pg (27.0-33.0); Mean Corpuscular Volume 90.4 fL (80.0-98.0); Mean Platelet Volume 9.4 fL (9.4-12.3); Platelet Count 469 X10*3/uL (160-400); Red Blood Count 4.15 X10*6/uL (4.20-5.50); Red Cell Distribution Width 14.2 % (11.0-16.0)
[2024-04-20 08:08] LABS: White Blood Count 42.8 X10*3/uL (4.8-10.8)
[2024-04-20 09:22] LABS: Anion Gap 18 (12-20); Blood Urea Nitrogen 78 mg/dL (9-16); Calcium 9.2 mg/dL (8.4-10.2); Carbon Dioxide 15 mmol/L (22-29); Chloride 130 mmol/L (96-108); Estimated Glomerular Filt Rate 26; Glucose Random 160 mg/dL (60-115); Potassium 3.4 mmol/L (3.3-5.1); Sodium 160 mmol/L (135-145)
[2024-04-20] MEDS: 0.9 % Sodium Chloride Flush 3 ML SYRINGE IVFLUSH (09:37)
--- NOTE | 2024-04-20 09:39 | MHC.CM.PN ---
IMM 04/20/23 DELIVERED TO PT'S DTR/HCP [facility] [phone] D/T ACUTE ENCEPHALOPATHY, COPY TO BE LEFT AT BEDSIDE PER DISCUSSION, [facility] REPORTS PT'S BASELINE IS A&O AND SPEAKS FOR SELF HOWEVER WHEN SHE HAS UTI'S THAT CHANGES, [facility] REPORTS PT RAISED 3 CHILDREN AND SHE IS LTC D/T BEING BED BOUND W/T NO MOBILITY IN LOWER HALF OF BODY. CM TO REQUEST PCP/HCP FROM [facility] WHERE PT IS IN LTC X 4YRS.
--- NOTE | 2024-04-20 10:22 | HE.PHANOTE ---
VANCO DOSE ADJUSTMENT BASED ON SCR DOSE CONTINUED AT 750 Q 24H. NEXT LEVEL 03/21 @ 1200
[2024-04-20] MEDS: Dextrose 5 % 1,000 ML 125 ML IVCONT ×2 (10:42→17:27)
[2024-04-20 11:15] VITALS: BP 162/66; PULSE 54; RESP 19; TEMP 36.2; O2SAT 100
--- NOTE | 2024-04-20 11:35 | HO.PM.IMPN ---
Subjective Subjective Date of Service: 04/20/24 Interval History: Patient more awake, alert, passed bedside swallow eval. Say yes to feeling better and less right facial pain. Review of Systems Unable to obtain due to mental status Physical Exam Vital Signs: Vital Signs: Last Vital Signs Temp 97.1 F 04/20/24 11:15 Pulse 54 04/20/24 11:15 Resp 19 04/20/24 11:15 BP 162/66 H 04/20/24 11:15 Pulse Ox 100 04/20/24 11:15 O2 Del Method Nasal Cannula 04/20/24 07:50 O2 Flow Rate 2 04/20/24 04:00 BMI result Body Mass Index 30.9 Const: Other: General resting comfortably in no acute distress. Dry mucous membrane Neck right parotid gland enlargement slightly improved from yesterday/firm non tender, no redness no JVD. CVS regular rate rhythm, Respiratory lungs clear to auscultation, no respiratory distress Gastrointestinal abdomen soft, non tender, bowel sounds audible, no guarding , no rigidity. Extremities no edema/atrophied extremities Neuro unable to perform Skin multiple small areas of bruising lower extremities Objective Data Active Medications Acetaminophen (Acetaminophen 325 Mg Tablet) 650 mg PO Q6H PRN PRN Reason: Pain, Mild 1-3,fever,headache Al Hydroxide/Mg Hydroxide (Magnesium Hydrox/Alum Hydrox 30 Ml Oral.Susp) 30 ml PO QID PRN PRN Reason: MODERATE INDIGESTION Apixaban (Apixaban 2.5 Mg Tablet) 2.5 mg PO BID [facility] Bisacodyl (Bisacodyl 10 Mg Supp.Rect) 10 mg [place] DAILY PRN PRN Reason: Constipation Calcium Carbonate (Calcium Carbonate 750 Mg Tab.Chew) 750 mg PO Q4H PRN PRN Reason: Heartburn Duloxetine HCl (Duloxetine Hcl 20 Mg Capsule.Dr) 40 mg PO DAILY [facility] Piperacillin Sod/Tazobactam (Sod 3.375 gm/ Sodium Chloride) 50 mls @ 100 mls/hr IV Q8H [facility] Last Infusion: 04/20/24 04:47 Dose: Infused Documented By: CRISTHIAN Vancomycin HCl 750 mg/ Sodium (Chloride) 265 mls @ 265 mls/hr IV Q24H [facility] Acetaminophen (Ofirmev) 1,000 mg in 100 mls @ 400 mls/hr IV Q6H PRN PRN Reason: Pain, Moderate(Pain Scale 4-6) Last Infusion: 04/19/24 22:22 Dose: Infused Documented By: CRISTHIAN Dextrose (D5w) 1,000 mls @ 150 mls/hr IVCONT .Q6H40M [facility] Last Admin: 04/20/24 10:42 Dose: 125 mls/hr Documented By: JOSE Magnesium Hydroxide (Milk Of Magnesia 30 Ml Oral.Susp) 30 ml PO DAILY PRN PRN Reason: Constipation Magnesium Hydroxide (Milk Of Magnesia 30 Ml Oral.Susp) 30 ml PO DAILY PRN PRN Reason: Constipation Melatonin (Melatonin 3 Mg Tablet) 6 mg PO BEDTIME PRN PRN Reason: Insomnia Metoprolol Tartrate (Metoprolol Tartrate 5 Mg/5 Ml Vial) 2.5 mg IVPUSH Q6H [facility]; Protocol Last Admin: 04/20/24 05:31 Dose: Not Given Documented By: CRISTHIAN Non-Admin Reason: Decreased Heart Rate Non-Formulary Medication (Clorazepate Dipotassium) 3.75 mg PO BID [facility] Ondansetron HCl (Ondansetron Hcl 4 Mg/2 Ml Vial) 4 mg IVPUSH Q8H PRN PRN Reason: Nausea and Vomiting Pharmacy Consult (Consult Rx Vancomycin Dosing) 1 each MISCELLANE DAILY PRN PRN Reason: Consult order Sodium Biphosphate/Sodium Phosphate (Sodium Phosphate,[place]-Dibasic 133 Ml Enema) 118 ml NC DAILY PRN PRN Reason: Constipation Sodium Chloride (0.9 % Sodium Chloride Flush 3 Ml Syringe) 3 ml IVFLUSH QSHIFT [facility] Last Admin: 04/20/24 09:37 Dose: 3 ml Documented By: JOSE Labs 04/20/24 07:53 04/20/24 08:44 Labs: Laboratory Results - last 24 hr 04/19/24 04/19/24 04/19/24 13:39 13:45 17:50 MCV 86.6 MCH 25.9 L MCHC 29.9 L RDW 13.7 Plt Count 574 H MPV 9.3 L Immature Gran % (Auto) 2.4 H Neut % (Auto) 82.1 H Lymph % (Auto) 11.4 L [place] % (Auto) 3.8 Eos % (Auto) 0.0 Baso % (Auto) 0.3 Lymph # (Auto) 2.5 [place] # (Auto) 0.9 Eos # (Auto) 0.0 Baso # (Auto) 0.1 Abs Immat Gran (auto) 0.53 H Absolute Neuts (auto) 18.3 H Absolute Nucleated RBC 0.000 Nucleated RBC % (auto) 0.0 PT 22.1 H INR 1.9 H APTT 32.8 VBG pH 7.35 VBG pCO2 32 VBG pO2 96 VBG HCO3 18 L VBG O2 Saturation 98.0 VBG Base Excess -6.3 Anion Gap 14 Estim Creat Clear Calc 25.2 Estimated GFR 27 POC Glucose Random Glucose 164 H Lactic Acid 1.0 Calcium 10.3 H Magnesium 2.6 Total Bilirubin 0.2 Direct Bilirubin < 0.2 AST 15 ALT 7 Alkaline Phosphatase 101 Ammonia 42 Troponin I High Sens 13.1 D C-Reactive Protein 6.63 H Total Protein 9.1 H Albumin 3.6 Lipase 41 Procalcitonin 0.09 Urine Color Yellow Urine Appearance Turbid Urine pH 6.0 Ur Specific [place] 1.015 Urine Protein 300 (3+) H Urine Glucose (UA) Negative Urine Ketones Negative Urine Blood Large (3+) H Urine Nitrite Negative Ur Leukocyte Esterase Large (3+) H Urine RBC 11-20 H Urine WBC >50 H Ur Squamous Epith Cells 0-2 Urine Bacteria 4+ Hyaline Casts 0-2 Influenza Type A (PCR) NEGATIVE Influenza Type B (PCR) NEGATIVE RSV RNA Qual (PCR) NEGATIVE SARS-CoV-2 RNA (RT-PCR) NEGATIVE 04/20/24 04/20/24 04/20/24 04:14 07:53 08:44 MCV 90.4 MCH 26.3 L MCHC 29.1 L RDW 14.2 Plt Count 469 H MPV 9.4 Immature Gran % (Auto) Neut % (Auto) Lymph % (Auto) [place] % (Auto) Eos % (Auto) Baso % (Auto) Lymph # (Auto) [place] # (Auto) Eos # (Auto) Baso # (Auto) Abs Immat Gran (auto) Absolute Neuts (auto) Absolute Nucleated RBC 0.000 Nucleated RBC % (auto) 0.0 PT INR APTT VBG pH VBG pCO2 VBG pO2 VBG HCO3 VBG O2 Saturation VBG Base Excess Anion Gap 18 Estim Creat Clear Calc 24.0 Estimated GFR 26 POC Glucose 135 H Random Glucose 160 H Lactic Acid Calcium 9.2 D Magnesium Total Bilirubin Direct Bilirubin AST ALT Alkaline Phosphatase Ammonia Troponin I High Sens C-Reactive Protein Total Protein Albumin Lipase Procalcitonin Urine Color Urine Appearance Urine pH Ur Specific [place] Urine Protein Urine Glucose (UA) Urine Ketones Urine Blood Urine Nitrite Ur Leukocyte Esterase Urine RBC Urine WBC Ur Squamous Epith Cells Urine Bacteria Hyaline Casts Influenza Type A (PCR) Influenza Type B (PCR) RSV RNA Qual (PCR) SARS-CoV-2 RNA (RT-PCR) Assessment and Plan (1) Acute hypernatremia: Status: Acute (2) Acute encephalopathy: Status: Acute (3) Elevated WBC count: Status: Acute (4) Acute parotitis: Status: Acute (5) VITOR (acute kidney injury): Status: Acute Plan 78-year-old female with past medical history of cerebral palsy, bed-bound, requires Bakari lift for transfer, fdc resident, with multiple other medical issues including diabetes mellitus type 2, hypertension, urinary retention, anxiety depression, history of thrombocytosis on Eliquis was recently discharged from [place] emergency room on 04/16 after being diagnosed with acute right parotitis however patient was unable to take by mouth antibiotics and was noted to have decreased by mouth intake therefore transferred to [place] emergency room where patient noted to have sepsis likely due to acute parotitis and UTI Sepsis due to acute rt. parotitis and UTI Clinically more awake alert, remains afebrile Noted to have worsening WBC count No severe sepsis continue IV vancomycin and Zosyn initiated on April 19, renally dosed Follow urine culture and blood culture Acute toxic metabolic encephalopathy Likely due to infection and hypernatremia will treat and follow clinical course VITOR with a acute metabolic acidosis noted on 04/16 creatinine remains elevated continue IV D5W and follow BMP, all meds renally dosed. Acute hypernatremia Sodium 160, Likely due to decreased by mouth intake will treat with IV fluids follow BMP in 4 hours Bilateral hydroureteronephrosis, no urinary stones noted Wall thickening of the mucosa of the renal pelvis/ureters and bladder question related to UTI Continue IV ceftriaxone follow urine and blood cultures Continue Hernandez catheter Stercoral colitis with history of chronic constipation Distention of distal sigmoid colon and rectum noted on CT abdomen Responded well to enema continue stool softeners Hypertension noted to have elevated blood pressure on IV metoprolol will transition to atenolol. Mood disorder on duloxetine 40 mg daily, pregabalin 75 mg b.i.d. and clorazepate 3.75 mg b.i.d., will resume duloxetine and clorazepate History of thrombocytosis unspecified on Eliquis DVT prophylaxis On Eliquis 5 mg b.i.d. Full code Quality Stroke Does the patient have a stroke diagnosis?: No VTE Prior VTE?: No VTE Risk Level:: Medical - moderate - high VTE Device Contraindication: Treatment Not Indicated VTE Drug Contraindication: N/A - Med Ordered
[2024-04-20] MEDS: vancomycin HCL 750 MG in 0.9 % Sodium Chloride 250 ML 265 MG IV (13:27)
[2024-04-20] MEDS: Acetaminophen 325 MG TABLET 650 MG PO (13:36)
[2024-04-20 15:21] VITALS: BP 120/53; PULSE 58; RESP 20; TEMP 36.7; O2SAT 96
[2024-04-20 15:39] LABS: INTERNATIONAL NORM RATIO 1.6 (0.9-1.1); Prothrombin Time 18.8 SEC (10.9-12.4)
[2024-04-20 15:50] LABS: Anion Gap 13 (12-20); Blood Urea Nitrogen 71 mg/dL (9-16); Calcium 8.6 mg/dL (8.4-10.2); Carbon Dioxide 19 mmol/L (22-29); Chloride 128 mmol/L (96-108); Creatinine Clr Calc Pharmacy 26.6; Estimated Glomerular Filt Rate 29; Glucose Random 223 mg/dL (60-115); Sodium 157 mmol/L (135-145)
[2024-04-20 19:18] VITALS: BP 134/61; PULSE 81; RESP 18; TEMP 36.3; O2SAT 96
[2024-04-20] MEDS: Apixaban 5 MG TABLET PO (19:56)
[2024-04-21] VITALS (9 sets, daily range): BP systolic 109–131; BP diastolic 53–60; PULSE 57–100; RESP 16–18; TEMP 36–36.7; O2SAT 94–98
[2024-04-21] MEDS: Dextrose 5 % 1,000 ML 125 ML IVCONT (00:57)
[2024-04-21] MEDS: 0.9 % Sodium Chloride Flush 3 ML SYRINGE IVFLUSH ×3 (00:58→12:01)
[2024-04-21] MEDS: Piperacillin Sodium/Tazobactam 3.375 GM in 0.9 % Sodium Chloride 50 ML IV (04:40)
--- NOTE | 2024-04-21 05:06 | PC.NURSE ---
Assumed care of pt at 23:00. See clinical documentation for assessments.
[2024-04-21 07:27] LABS: Hematocrit 32.5 % (37.0-47.0); Hemoglobin 9.5 g/dl (12.0-16.0); Mean Corpuscular HGB Conc 29.2 g/dl (31.0-35.0); Mean Corpuscular Volume 88.8 fL (80.0-98.0); Mean Platelet Volume 9.3 fL (9.4-12.3); Platelet Count 328 X10*3/uL (160-400); Red Blood Count 3.66 X10*6/uL (4.20-5.50); Red Cell Distribution Width 14.1 % (11.0-16.0)
[2024-04-21 07:46] LABS: White Blood Count 30.3 X10*3/uL (4.8-10.8)
[2024-04-21 07:56] LABS: Anion Gap 12 (12-20); Blood Urea Nitrogen 57 mg/dL (9-16); Calcium 8.1 mg/dL (8.4-10.2); Carbon Dioxide 17 mmol/L (22-29); Chloride 123 mmol/L (96-108); Creatinine Clr Calc Pharmacy 33.2; Estimated Glomerular Filt Rate 37; Glucose Random 127 mg/dL (60-115); Sodium 149 mmol/L (135-145)
[2024-04-21] MEDS: Dextrose 5 % 1,000 ML 100 ML IVCONT ×2 (08:15→16:01)
[2024-04-21] MEDS: Acetaminophen 325 MG TABLET 650 MG PO (08:17)
[2024-04-21] MEDS: Potassium Chloride Packet 20 MEQ PACKET 40 MEQ PO ×2 (08:17→11:55)
[2024-04-21] MEDS: DULoxetine HCl 20 MG CAPSULE.DR 40 MG PO (08:17)
[2024-04-21] MEDS: Apixaban 5 MG TABLET PO ×2 (08:17→20:19)
[2024-04-21 08:34] LABS: Potassium 2.7 mmol/L (3.3-5.1)
--- NOTE | 2024-04-21 10:42 | P.PNIM_ITS ---
Subjective Subjective Date of Service: 04/21/24 Interval History: Being followed for electrolyte abnormality acute prostatitis and UTI More awake alert and responsive offers no acute complaints No acute events overnight, Hernandez catheter with clear urine. Review of Systems All other system reviewed and are negative Physical Exam 2 Vital Signs: Vital Signs: Last Vital Signs Temp 97.2 F 04/21/24 07:42 Pulse 59 04/21/24 07:42 Resp 16 04/21/24 07:42 BP 109/53 L 04/21/24 07:42 Pulse Ox 95 04/21/24 07:42 O2 Del Method Room Air 04/21/24 07:42 O2 Flow Rate 2 04/20/24 04:00 BMI result Body Mass Index 30.9 Const: Other: General resting comfortably in no acute distress. Dry mucous membrane Neck right parotid gland enlargement improving, nontender to touch, no erythema, no warmth CVS regular rate rhythm, Respiratory lungs clear to auscultation, no respiratory distress Gastrointestinal abdomen soft, non tender, bowel sounds audible, no guarding , no rigidity. Extremities no edema/atrophied extremities Neuro unable to perform Skin multiple small areas of bruising lower extremities Objective Data Active Medications Acetaminophen (Acetaminophen 325 Mg Tablet) 650 mg PO Q6H PRN PRN Reason: Pain, Mild 1-3,fever,headache Last Admin: 04/21/24 08:17 Dose: 650 mg Documented By: CHIRAG Al Hydroxide/Mg Hydroxide (Magnesium Hydrox/Alum Hydrox 30 Ml Oral.Susp) 30 ml PO QID PRN PRN Reason: MODERATE INDIGESTION Apixaban (Apixaban 5 Mg Tablet) 5 mg PO BID [facility] Last Admin: 04/21/24 08:17 Dose: 5 mg Documented By: CHIRAG Bisacodyl (Bisacodyl 10 Mg Supp.Rect) 10 mg [place] DAILY PRN PRN Reason: Constipation Calcium Carbonate (Calcium Carbonate 750 Mg Tab.Chew) 750 mg PO Q4H PRN PRN Reason: Heartburn Duloxetine HCl (Duloxetine Hcl 20 Mg Capsule.Dr) 40 mg PO DAILY [facility] Last Admin: 04/21/24 08:17 Dose: 40 mg Documented By: CHIRAG Piperacillin Sod/Tazobactam (Sod 3.375 gm/ Sodium Chloride) 50 mls @ 100 mls/hr IV Q8H [facility] Last Infusion: 04/21/24 05:15 Dose: Infused Documented By: AMBER Vancomycin HCl 750 mg/ Sodium (Chloride) 265 mls @ 265 mls/hr IV Q24H [facility] Last Infusion: 04/20/24 14:48 Dose: Infused Documented By: JOSE Acetaminophen (Ofirmev) 1,000 mg in 100 mls @ 400 mls/hr IV Q6H PRN PRN Reason: Pain, Moderate(Pain Scale 4-6) Last Infusion: 04/19/24 22:22 Dose: Infused Documented By: CRISTHIAN Dextrose (D5w) 1,000 mls @ 100 mls/hr IVCONT .Q10H [facility] Last Admin: 04/21/24 08:15 Dose: 100 mls/hr Documented By: CHIRAG Magnesium Hydroxide (Milk Of Magnesia 30 Ml Oral.Susp) 30 ml PO DAILY PRN PRN Reason: Constipation Melatonin (Melatonin 3 Mg Tablet) 6 mg PO BEDTIME PRN PRN Reason: Insomnia Metoprolol Tartrate (Metoprolol Tartrate 5 Mg/5 Ml Vial) 2.5 mg IVPUSH Q6H [facility]; Protocol Last Admin: 04/21/24 06:09 Dose: Not Given Documented By: AMBER Non-Admin Reason: Decreased Heart Rate Non-Formulary Medication (Clorazepate Dipotassium) 3.75 mg PO BID [facility] Ondansetron HCl (Ondansetron Hcl 4 Mg/2 Ml Vial) 4 mg IVPUSH Q8H PRN PRN Reason: Nausea and Vomiting Pharmacy Consult (Consult Rx Vancomycin Dosing) 1 each MISCELLANE DAILY PRN PRN Reason: Consult order Sodium Biphosphate/Sodium Phosphate (Sodium Phosphate,[place]-Dibasic 133 Ml Enema) 118 ml [place] DAILY PRN PRN Reason: Constipation Sodium Chloride (0.9 % Sodium Chloride Flush 3 Ml Syringe) 3 ml IVFLUSH QSHIFT [facility] Last Admin: 04/21/24 08:17 Dose: 3 ml Documented By: CHIRAG Labs 04/21/24 07:03 04/21/24 07:03 Labs: Laboratory Results - last 24 hr 04/20/24 04/21/24 15:02 07:03 MCV 88.8 MCH 26.0 L MCHC 29.2 L RDW 14.1 Plt Count 328 D MPV 9.3 L Absolute Nucleated RBC 0.000 Nucleated RBC % (auto) 0.0 PT 18.8 H INR 1.6 H Anion Gap 13 12 Estim Creat Clear Calc 26.6 33.2 Estimated GFR 29 37 Random Glucose 223 H 127 H Calcium 8.6 D 8.1 L Microbiology Microbiology Results: Microbiology 04/19/24 Unknown Urine Culture - Final Urine clean catch - Clean Catch Midstream Pseudomonas aeruginosa 04/19/24 13:39 Blood Culture - Preliminary Blood - Venous No growth after 24 hours. 04/19/24 13:39 Blood Culture - Preliminary Blood - Venous No growth after 24 hours. Assessment and Plan (1) VITOR (acute kidney injury): Status: Acute (2) Acute hypernatremia: Status: Acute (3) Acute encephalopathy: Status: Acute (4) Elevated WBC count: Status: Acute (5) Acute parotitis: Status: Acute Plan 78-year-old female with past medical history of cerebral palsy, bed-bound, requires Bakari lift for transfer, fdc resident, with multiple other medical issues including diabetes mellitus type 2, hypertension, urinary retention, anxiety depression, history of thrombocytosis on Eliquis was recently discharged from [place] emergency room on 04/16 after being diagnosed with acute right parotitis however patient was unable to take by mouth antibiotics and was noted to have decreased by mouth intake therefore transferred to [place] emergency room where patient noted to have sepsis likely due to acute parotitis and UTI Sepsis due to acute rt. parotitis and UTI remains afebrile, WBC trending down No severe sepsis on IV vancomycin and Zosyn initiated on April 19, renally dosed blood culture x2 preliminary negative Urine culture grew Pseudomonas only sensitive to gentamicin intermediate to Cipro and meropenem Will consult ID, will DC IV vanco and add Levaquin discuss further antibiotic with ID Acute toxic metabolic encephalopathy Likely due to infection and hypernatremia follow clinical course VITOR with a acute metabolic acidosis noted on 04/16 Creatinine normalized persistent mild acidosis will follow BMP Acute hypernatremia Sodium 160 on admission improved to 149 continue IV D5W follow labs Acute hypokalemia will replete and follow labs Bilateral hydroureteronephrosis, no urinary stones noted Wall thickening of the mucosa of the renal pelvis/ureters and bladder likely related to UTI Continue IV antibiotics as above Continue Hernandez catheter Stercoral colitis with history of chronic constipation Distention of distal sigmoid colon and rectum noted on CT abdomen Responded well to enema continue stool softeners Hypertension noted to have elevated blood pressure on IV metoprolol will transition to po atenolol. Mood disorder on duloxetine 40 mg daily, pregabalin 75 mg b.i.d. and clorazepate 3.75 mg b.i.d., resume all home medications History of thrombocytosis unspecified on Eliquis/platelet normalized DVT prophylaxis On Eliquis 5 mg b.i.d. Full code Quality Stroke Does the patient have a stroke diagnosis?: No VTE Prior VTE?: No VTE Risk Level:: Medical - moderate - high VTE Device Contraindication: Treatment Not Indicated VTE Drug Contraindication: N/A - Med Ordered
[2024-04-21] MEDS: Meropenem 1 GM VIAL IVPUSH (11:55)
--- NOTE | 2024-04-21 14:00 | P.CDIM_ITS ---
PROVIDER RESPONSE TEXT: To clarify, the appropriate diagnosis supported by the clinical indicators: Clinically unable to determine (explain): . QUERY TEXT: PHYSICIAN'S DOCUMENTATION REQUEST Date of Query: 04/21/2024 11:56 AM EST Patient Name: Rain Solis Admit Date: 04/19/2024 Dear Kat Navarro MD, A review of the medical record indicates additional documentation may be needed. Please review below and update the documentation accordingly. Clinical Indicators: H&P and within the ED 04/19 - Patient with past medical history of cerebral palsy, CHF, hypertension. No lower extremity edema, breath sounds normal. Please provide further specificity regarding the most likely type and acuity of CHF, if known: Systolic Please specify if Acute, Chronic, or Acute on chronic, or Unable to determine Diastolic Please specify if Acute, Chronic, or Acute on chronic, or Unable to determine Combined Systolic/Diastolic Please specify if Acute, Chronic, or Acute on chronic, or Unable to determine CHF ruled out Other (explain) Clinically unable to determine (explain) Thank you, Hailey Mercedes, CCS, CDIS Use of terms such as suspected, likely, concern for, or probable (associated with a specific diagnosi s that is being evaluated, monitored, or treated as if it exists) are acceptable and can be coded in the inpatient se tting, when documented at the time of discharge. Please use your independent medical judgment in providing your response. THIS QUERY IS PART OF THE PERMANENT MEDICAL RECORD
--- NOTE | 2024-04-21 15:59 | MHC.CM.PN ---
EMR reviewed and per MD rounds, pt is not medically cleared for discharge today.
--- NOTE | 2024-04-21 16:13 | W.PM.IDCN ---
History of Present Illness Data of Consult Service Date: 04/21/24 Requesting physician: Kat Navarro Primary Care Provider: Margie Noguera MD HPI Reason for consult: leukocytosis She presents with temperature of 102 and right parotid swelling. She has no pain elsewhere. She also had pseudomonas urine intermediate to Merem. She is doing better and less parotid swelling. 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 Thrombocytosis DM2 (diabetes mellitus, type 2) Cerebral palsy Family History Family history: reviewed and not pertinent Social History Social History Household Members: Unknown / Unable to assess Housing: Unknown / Unable to assess Patient Tobacco Use Status: Tobacco use Unknown Smoked in Last 30 Days: No Use of substances other than those prescribed or required for medical reasons: No Currently Displaying Signs/Symptoms of Drug Intoxication Withdrawal: No Advance Directives: No Advance Directives Information Provided: No Do you have a plan to hurt others: No Plan Recently lost weight without trying: No Patient : No service: No Meds Allergies Allergy/AdvReac Type Severity Reaction Status Date / Time aspirin [ASPIRIN] Allergy Unknown VOMITING Verified 04/19/24 13:11 ibuprofen [IBUPROFEN] Allergy Unknown VOMITING Verified 04/19/24 13:11 oxycodone [OXYCODONE] Allergy Unknown UNKNOWN Verified 04/19/24 13:11 Active Medications: Current Medications Acetaminophen (Acetaminophen 325 Mg Tablet) 650 mg PO Q6H PRN PRN Reason: Pain, Mild 1-3,fever,headache Last Admin: 04/21/24 08:17 Dose: 650 mg Al Hydroxide/Mg Hydroxide (Magnesium Hydrox/Alum Hydrox 30 Ml Oral.Susp) 30 ml PO QID PRN PRN Reason: MODERATE INDIGESTION Apixaban (Apixaban 5 Mg Tablet) 5 mg PO BID [facility] Last Admin: 04/21/24 08:17 Dose: 5 mg Atenolol (Atenolol 50 Mg Tablet) 50 mg PO DAILY [facility]; Protocol Bisacodyl (Bisacodyl 10 Mg Supp.Rect) 10 mg [place] DAILY PRN PRN Reason: Constipation Calcium Carbonate (Calcium Carbonate 750 Mg Tab.Chew) 750 mg PO Q4H PRN PRN Reason: Heartburn Duloxetine HCl (Duloxetine Hcl 20 Mg Capsule.Dr) 40 mg PO DAILY [facility] Last Admin: 04/21/24 08:17 Dose: 40 mg Acetaminophen (Ofirmev) 1,000 mg in 100 mls @ 400 mls/hr IV Q6H PRN PRN Reason: Pain, Moderate(Pain Scale 4-6) Last Infusion: 04/19/24 22:22 Dose: Infused Dextrose (D5w) 1,000 mls @ 100 mls/hr IVCONT .Q10H [facility] Last Admin: 04/21/24 16:01 Dose: 100 mls/hr Magnesium Hydroxide (Milk Of Magnesia 30 Ml Oral.Susp) 30 ml PO DAILY PRN PRN Reason: Constipation Melatonin (Melatonin 3 Mg Tablet) 6 mg PO BEDTIME PRN PRN Reason: Insomnia Meropenem (Meropenem 1 Gm Vial) 1 gm IVPUSH Q12H [facility] Last Admin: 04/21/24 11:55 Dose: 1 gm Non-Formulary Medication (Clorazepate Dipotassium) 3.75 mg PO BID [facility] Ondansetron HCl (Ondansetron Hcl 4 Mg/2 Ml Vial) 4 mg IVPUSH Q8H PRN PRN Reason: Nausea and Vomiting Pregabalin (Pregabalin 75 Mg Capsule) 75 mg PO BID [facility] Sodium Biphosphate/Sodium Phosphate (Sodium Phosphate,[place]-Dibasic 133 Ml Enema) 118 ml [place] DAILY PRN PRN Reason: Constipation Sodium Chloride (0.9 % Sodium Chloride Flush 3 Ml Syringe) 3 ml IVFLUSH QSHIFT [facility] Last Admin: 04/21/24 12:01 Dose: 3 ml Home Medications ?Medication ?Instructions ?Recorded ?Confirmed ?Last Taken ?Type acetaminophen 500 mg tablet 500 mg PO Q6H PRN Fever Or Pain 04/19/24 04/19/24 Unknown History aluminum-mag hydroxide-simethicone 15 ml PO QID PRN MILD INDIGESTION 04/19/24 04/19/24 Unknown History 200 mg-200 mg-20 mg/5 mL oral susp aluminum-mag hydroxide-simethicone 30 ml PO QID PRN MODERATE 04/19/24 04/19/24 Unknown History 200 mg-200 mg-20 mg/5 mL oral susp INDIGESTION apixaban 5 mg tablet (Eliquis) 5 mg PO BID 04/19/24 04/19/24 Unknown History atenolol 50 mg tablet 50 mg PO DAILY 04/19/24 04/19/24 Unknown History bisacodyl 10 mg rectal suppository 10 mg [place] DAILY PRN Constipation 04/19/24 04/19/24 Unknown History clorazepate dipotassium 3.75 mg 3.75 mg PO BID 04/19/24 04/19/24 Unknown History tablet cranberry fruit 450 mg tablet 400 mg PO DAILY 04/19/24 04/19/24 Unknown History (cranberry) dextrose 40 % oral gel (Glucose 10 g PO ONCE PRN Hypoglycemia 04/19/24 04/19/24 Unknown History Gel) duloxetine 20 mg capsule,delayed 40 mg PO DAILY 04/19/24 04/19/24 Unknown History release glucagon 1 mg solution for 1 mg subcut ONCE PRN Hypoglycemia 04/19/24 04/19/24 Unknown History injection (GlucaGen HypoKit) magnesium hydroxide 400 mg/5 mL 30 ml PO DAILY PRN Constipation 04/19/24 04/19/24 Unknown History oral suspension (Milk of Magnesia) pregabalin 75 mg capsule 75 mg PO BID 04/19/24 04/19/24 Unknown History sodium phosphates 19 gram-7 118 ml WI DAILY PRN Constipation 04/19/24 04/19/24 Unknown History gram/118 mL enema (Fleet Enema) Physical Exam Vital Signs: Vital Signs: Last Vital Signs Temp 97.6 F 04/21/24 15:16 Pulse 100 04/21/24 15:16 Resp 18 04/21/24 15:16 BP 115/55 L 04/21/24 15:16 Pulse Ox 94 04/21/24 15:16 O2 Del Method Room Air 04/21/24 15:16 O2 Flow Rate 2 04/20/24 04:00 BMI result Body Mass Index 30.9 Const: General: cooperative HEENT: Head: Yes normal to inspection Face and sinus: Yes normal facial exam Mouth: Normal oral and palatal mucosa present Teeth and gingiva: dentition normal Eyes: General: appearance normal, both eyes and all related structures Pupils: Equal, round and reactive pupils present Resp: Effort & Inspection: normal respiratory effort Cardio: Rate: regular rate Rhythm: regular rhythm GI: Palpation (GI): Soft to palpation and nontender : General: Yes no CVA tenderness Back/Spine/Pelvis: Back: no CVA tenderness Skin: General skin exam: no rashes or lesions noted Neuro: General: moves all extremities Cranial nerves: Yes Equal, round and reactive pupils present Extrem: General: Yes normal to inspection Psych: Appearance: grossly normal Results Labs 04/21/24 07:03 04/21/24 07:03 Labs: Short CBC 04/21/24 Range/Units 07:03 WBC 30.3 H* (4.8-10.8) X10*3/uL Hgb 9.5 L (12.0-16.0) g/dl Hct 32.5 L (37.0-47.0) % Plt Count 328 D (160-400) X10*3/uL BMP 04/21/24 07:03 Sodium 149 H Potassium 2.7 L* Chloride 123 H Carbon Dioxide 17 L BUN 57 H Creatinine 1.38 Calcium 8.1 L Microbiology Microbiology Results: Microbiology 04/19/24 13:39 Blood - Venous Blood Culture - Preliminary No growth after 48 hours. 04/19/24 13:39 Blood - Venous Blood Culture - Preliminary No growth after 48 hours. 04/19/24 Unknown Urine clean catch - Clean Catch Midstream Urine Culture - Final Pseudomonas aeruginosa Assessment and Plan (1) VITOR (acute kidney injury): Status: Acute (2) Acute encephalopathy: Status: Acute (3) Elevated WBC count: Qualifiers: Leukocytosis type: unspecified Qualified Code(s): D72.829 - Elevated white blood cell count, unspecified Status: Acute (4) Acute parotitis: Status: Acute Plan Likely leukocytosis due to parotitis and/or urinary infection which in vitro has intermediate sensitivities to Merem She is now day 04/25 Merem.
[2024-04-21] MEDS: Pregabalin 75 MG CAPSULE PO (20:19)
[2024-04-22] MEDS: Meropenem 1 GM VIAL IVPUSH ×3 (00:31→23:12)
[2024-04-22] MEDS: 0.9 % Sodium Chloride Flush 3 ML SYRINGE IVFLUSH ×3 (00:32→22:42)
[2024-04-22] MEDS: Dextrose 5 % 1,000 ML 100 ML IVCONT ×2 (02:01→12:14)
[2024-04-22 03:38] VITALS: BP 123/58; PULSE 110; RESP 19; TEMP 36.3; O2SAT 94
[2024-04-22 06:23] LABS: Hematocrit 31.4 % (37.0-47.0); Hemoglobin 9.6 g/dl (12.0-16.0); Mean Corpuscular HGB Conc 30.6 g/dl (31.0-35.0); Mean Corpuscular Hemoglobin 26.4 pg (27.0-33.0); Mean Corpuscular Volume 86.3 fL (80.0-98.0); Mean Platelet Volume 9.5 fL (9.4-12.3); NRBC Pct Auto 0.1 /100WBC (0.0-0.2); Platelet Count 345 X10*3/uL (160-400); Red Blood Count 3.64 X10*6/uL (4.20-5.50); Red Cell Distribution Width 14.3 % (11.0-16.0)
[2024-04-22 06:38] LABS: Anion Gap 10 (12-20); Blood Urea Nitrogen 46 mg/dL (9-16); Calcium 8.1 mg/dL (8.4-10.2); Carbon Dioxide 16 mmol/L (22-29); Chloride 120 mmol/L (96-108); Creatinine Clr Calc Pharmacy 39.5; Estimated Glomerular Filt Rate 45; Glucose Random 133 mg/dL (60-115); Potassium 3.1 mmol/L (3.3-5.1); Sodium 143 mmol/L (135-145)
[2024-04-22 07:30] VITALS: BP 104/53; PULSE 79; RESP 14; TEMP 36.3; O2SAT 95
[2024-04-22] MEDS: atenoloL 50 MG TABLET PO (08:13)
[2024-04-22] MEDS: DULoxetine HCl 20 MG CAPSULE.DR 40 MG PO (08:13)
[2024-04-22] MEDS: Apixaban 5 MG TABLET PO ×2 (08:13→20:53)
[2024-04-22] MEDS: Pregabalin 75 MG CAPSULE PO ×2 (08:14→20:53)
[2024-04-22] MEDS: Potassium Chloride Packet 20 MEQ PACKET 40 MEQ PO (11:09)
[2024-04-22 11:41] VITALS: BP 103/55; PULSE 80; RESP 18; TEMP 37.2; O2SAT 95
--- NOTE | 2024-04-22 12:41 | HO.PM.IMPN ---
Subjective Subjective Date of Service: 04/22/24 Interval History: Being followed for acute parotitis and UTI More awake alert answering questions appropriately denies right facial pain, no acute overnight events. Review of Systems All other system reviewed and negative Physical Exam Vital Signs: Vital Signs: Last Vital Signs Temp 98.9 F 04/22/24 11:41 Pulse 80 04/22/24 11:41 Resp 18 04/22/24 11:41 BP 103/55 L 04/22/24 11:41 Pulse Ox 95 04/22/24 11:41 O2 Del Method Room Air 04/22/24 11:41 O2 Flow Rate 2 04/20/24 04:00 BMI result Body Mass Index 30.9 Const: Other: General resting comfortably in no acute distress. Neck right parotid gland nontender to touch, no erythema, no warmth CVS regular rate rhythm, Respiratory lungs clear to auscultation, no respiratory distress Gastrointestinal abdomen soft, non tender, bowel sounds audible, no guarding , no rigidity. Extremities no edema/atrophied extremities Neuro unable to perform Skin multiple small areas of bruising lower extremities Objective Data Active Medications Acetaminophen (Acetaminophen 325 Mg Tablet) 650 mg PO Q6H PRN PRN Reason: Pain, Mild 1-3,fever,headache Last Admin: 04/21/24 08:17 Dose: 650 mg Documented By: RILEY-MELBA Al Hydroxide/Mg Hydroxide (Magnesium Hydrox/Alum Hydrox 30 Ml Oral.Susp) 30 ml PO QID PRN PRN Reason: MODERATE INDIGESTION Apixaban (Apixaban 5 Mg Tablet) 5 mg PO BID [facility] Last Admin: 04/22/24 08:13 Dose: 5 mg Documented By: PODMORP Atenolol (Atenolol 50 Mg Tablet) 50 mg PO DAILY [facility]; Protocol Last Admin: 04/22/24 08:13 Dose: 50 mg Documented By: PODMORP Bisacodyl (Bisacodyl 10 Mg Supp.Rect) 10 mg [place] DAILY PRN PRN Reason: Constipation Calcium Carbonate (Calcium Carbonate 750 Mg Tab.Chew) 750 mg PO Q4H PRN PRN Reason: Heartburn Duloxetine HCl (Duloxetine Hcl 20 Mg Capsule.Dr) 40 mg PO DAILY [facility] Last Admin: 04/22/24 08:13 Dose: 40 mg Documented By: PODMORP Dextrose (D5w) 1,000 mls @ 100 mls/hr IVCONT .Q10H [facility] Last Admin: 04/22/24 12:14 Dose: 100 mls/hr Documented By: PODMORP Magnesium Hydroxide (Milk Of Magnesia 30 Ml Oral.Susp) 30 ml PO DAILY PRN PRN Reason: Constipation Melatonin (Melatonin 3 Mg Tablet) 6 mg PO BEDTIME PRN PRN Reason: Insomnia Meropenem (Meropenem 1 Gm Vial) 1 gm IVPUSH Q12H [facility] Last Admin: 04/22/24 11:10 Dose: 1 gm Documented By: PODMORP Non-Formulary Medication (Clorazepate Dipotassium) 3.75 mg PO BID [facility] Ondansetron HCl (Ondansetron Hcl 4 Mg/2 Ml Vial) 4 mg IVPUSH Q8H PRN PRN Reason: Nausea and Vomiting Pregabalin (Pregabalin 75 Mg Capsule) 75 mg PO BID [facility] Last Admin: 04/22/24 08:14 Dose: 75 mg Documented By: DANIELMORP Sodium Biphosphate/Sodium Phosphate (Sodium Phosphate,[place]-Dibasic 133 Ml Enema) 118 ml [place] DAILY PRN PRN Reason: Constipation Sodium Chloride (0.9 % Sodium Chloride Flush 3 Ml Syringe) 3 ml IVFLUSH QSHIFT [facility] Last Admin: 04/22/24 08:16 Dose: 3 ml Documented By: DANIELMOVONNIE Labs 04/22/24 05:52 04/22/24 05:52 Labs: Laboratory Results - last 24 hr 04/22/24 05:52 MCV 86.3 MCH 26.4 L MCHC 30.6 L RDW 14.3 Plt Count 345 MPV 9.5 Absolute Nucleated RBC 0.020 H Nucleated RBC % (auto) 0.1 Anion Gap 10 L Estim Creat Clear Calc 39.5 Estimated GFR 45 Random Glucose 133 H Calcium 8.1 L Microbiology Microbiology Results: Microbiology 04/19/24 13:39 Blood Culture - Preliminary Blood - Venous No growth after 48 hours. 04/19/24 13:39 Blood Culture - Preliminary Blood - Venous No growth after 48 hours. 04/19/24 Unknown Urine Culture - Final Urine clean catch - Clean Catch Midstream Pseudomonas aeruginosa Assessment and Plan (1) VITOR (acute kidney injury): Status: Acute (2) Acute hypernatremia: Status: Acute (3) Fever: Status: Acute (4) Acute encephalopathy: Status: Acute (5) Elevated WBC count: Status: Acute (6) Acute parotitis: Status: Acute Plan 78-year-old female with past medical history of cerebral palsy, bed-bound, requires Bakari lift for transfer, [facility] resident, with multiple other medical issues including diabetes mellitus type 2, hypertension, urinary retention, anxiety depression, history of thrombocytosis on Eliquis was recently discharged from [place] emergency room on 04/16 after being diagnosed with acute right parotitis however patient was unable to take by mouth antibiotics and was noted to have decreased by mouth intake therefore transferred to [place] emergency room where patient noted to have sepsis likely due to acute parotitis and UTI Sepsis due to acute rt. parotitis and UTI remains afebrile, persistent leukocytosis No severe sepsis Urine culture grew Pseudomonas only sensitive to gentamicin intermediate to Cipro and meropenem s/p IV vancomycin and Zosyn now on iv meropenem blood culture x2 negative Acute toxic metabolic encephalopathy Resolved was likely due to infection and hypernatremia follow clinical course VITOR with a acute metabolic acidosis noted on 04/16 Creatinine normalized persistent mild acidosis add soda bicarb, and follow BMP Acute hypernatremia Sodium 160 on admission improved to 143 decrease IV D5W Acute hypokalemia will replete and follow labs Bilateral hydroureteronephrosis, no urinary stones noted Wall thickening of the mucosa of the renal pelvis/ureters and bladder likely related to UTI Continue IV antibiotics as above Continue Hernandez catheter Stercoral colitis with history of chronic constipation Distention of distal sigmoid colon and rectum noted on CT abdomen Responded well to enema continue stool softeners Hypertension noted to have elevated blood pressure on IV metoprolol will transition to po atenolol. Mood disorder on duloxetine 40 mg daily, pregabalin 75 mg b.i.d. and clorazepate 3.75 mg b.i.d., resume all home medications History of thrombocytosis unspecified on Eliquis/platelet normalized DVT prophylaxis On Eliquis 5 mg b.i.d. Full code Quality Stroke Does the patient have a stroke diagnosis?: No VTE Prior VTE?: No VTE Risk Level:: Medical - moderate - high VTE Device Contraindication: Treatment Not Indicated VTE Drug Contraindication: N/A - Med Ordered
[2024-04-22] MEDS: Sodium Bicarbonate 650 MG TABLET PO ×2 (13:44→20:53)
[2024-04-22 15:34] VITALS: BP 120/58; PULSE 104; RESP 18; TEMP 36.8; O2SAT 93
[2024-04-22 19:40] VITALS: BP 132/73; PULSE 112; RESP 28; TEMP 36.9; O2SAT 96
[2024-04-22] MEDS: Dextrose 5 % 1,000 ML 80 ML IVCONT (22:41)
[2024-04-23] VITALS (8 sets, daily range): BP systolic 104–120; BP diastolic 56–76; PULSE 81–107; RESP 14–18; TEMP 36.2–36.7; O2SAT 93–99
[2024-04-23 07:21] LABS: Anion Gap 11 (12-20); Blood Urea Nitrogen 35 mg/dL (9-16); Calcium 8.6 mg/dL (8.4-10.2); Carbon Dioxide 18 mmol/L (22-29); Chloride 117 mmol/L (96-108); Creatinine Clr Calc Pharmacy 45.4; Estimated Glomerular Filt Rate 53; Glucose Random 112 mg/dL (60-115); Sodium 143 mmol/L (135-145)
[2024-04-23 07:24] LABS: Hematocrit 32.2 % (37.0-47.0); Hemoglobin 9.9 g/dl (12.0-16.0); Mean Corpuscular HGB Conc 30.7 g/dl (31.0-35.0); Mean Corpuscular Hemoglobin 26.3 pg (27.0-33.0); Mean Corpuscular Volume 85.6 fL (80.0-98.0); Mean Platelet Volume 9.6 fL (9.4-12.3); Platelet Count 345 X10*3/uL (160-400); Red Blood Count 3.76 X10*6/uL (4.20-5.50); Red Cell Distribution Width 14.3 % (11.0-16.0)
[2024-04-23 07:34] LABS: White Blood Count 32.9 X10*3/uL (4.8-10.8)
[2024-04-23] MEDS: Dextrose 5 % 1,000 ML 80 ML IVCONT (10:36)
[2024-04-23] MEDS: Potassium Chloride Packet 20 MEQ PACKET 40 MEQ PO (10:37)
[2024-04-23] MEDS: Apixaban 5 MG TABLET PO ×2 (10:38→19:59)
[2024-04-23] MEDS: Pregabalin 75 MG CAPSULE PO ×2 (10:38→19:59)
[2024-04-23] MEDS: atenoloL 50 MG TABLET PO (10:38)
[2024-04-23] MEDS: Sodium Bicarbonate 650 MG TABLET PO ×2 (10:38→19:59)
[2024-04-23] MEDS: DULoxetine HCl 20 MG CAPSULE.DR 40 MG PO (10:38)
[2024-04-23] MEDS: Meropenem 1 GM VIAL IVPUSH (12:32)
--- NOTE | 2024-04-23 12:33 | P.PNIM_ITS ---
Subjective Subjective Date of Service: 04/23/24 Interval History: Being followed for acute parotitis and UTI with multiple electrolyte abnormalities. Awake alert tolerating diet, denies fever, no chills, no facial pain, no acute events overnight. Review of Systems All other system reviewed and are negative. Physical Exam 2 Vital Signs: Vital Signs: Last Vital Signs Temp 97.7 F 04/23/24 11:47 Pulse 105 H 04/23/24 11:47 Resp 18 04/23/24 11:47 BP 104/69 04/23/24 11:47 Pulse Ox 95 04/23/24 11:47 O2 Del Method Room Air 04/23/24 11:47 O2 Flow Rate 2 04/20/24 04:00 BMI result Body Mass Index 30.9 Const: Other: General resting comfortably in no acute distress. Neck right parotid gland nontender to touch, significant improvement in swelling. no erythema, no warmth CVS regular rate rhythm, Respiratory lungs clear to auscultation, no respiratory distress Gastrointestinal abdomen soft, non tender, bowel sounds audible, no guarding , no rigidity. Extremities no edema/atrophied extremities Neuro unable to perform Skin multiple small areas of bruising lower extremities Objective Data Active Medications Acetaminophen (Acetaminophen 325 Mg Tablet) 650 mg PO Q6H PRN PRN Reason: Pain, Mild 1-3,fever,headache Last Admin: 04/21/24 08:17 Dose: 650 mg Documented By: CHIRAG Al Hydroxide/Mg Hydroxide (Magnesium Hydrox/Alum Hydrox 30 Ml Oral.Susp) 30 ml PO QID PRN PRN Reason: MODERATE INDIGESTION Apixaban (Apixaban 5 Mg Tablet) 5 mg PO BID [facility] Last Admin: 04/23/24 10:38 Dose: 5 mg Documented By: CHANDRA Atenolol (Atenolol 50 Mg Tablet) 50 mg PO DAILY [facility]; Protocol Last Admin: 04/23/24 10:38 Dose: 50 mg Documented By: CHANDRA Bisacodyl (Bisacodyl 10 Mg Supp.Rect) 10 mg [place] DAILY PRN PRN Reason: Constipation Calcium Carbonate (Calcium Carbonate 750 Mg Tab.Chew) 750 mg PO Q4H PRN PRN Reason: Heartburn Duloxetine HCl (Duloxetine Hcl 20 Mg Capsule.Dr) 40 mg PO DAILY [facility] Last Admin: 04/23/24 10:38 Dose: 40 mg Documented By: CHANDRA Dextrose (D5w) 1,000 mls @ 80 mls/hr IVCONT .[id number] [facility] Last Infusion: 04/23/24 11:02 Dose: 0 mls/hr Documented By: CHANDRA Magnesium Hydroxide (Milk Of Magnesia 30 Ml Oral.Susp) 30 ml PO DAILY PRN PRN Reason: Constipation Melatonin (Melatonin 3 Mg Tablet) 6 mg PO BEDTIME PRN PRN Reason: Insomnia Meropenem (Meropenem 1 Gm Vial) 1 gm IVPUSH Q12H [facility] Last Admin: 04/23/24 12:32 Dose: 1 gm Documented By: CHANDRA Non-Formulary Medication (Clorazepate Dipotassium) 3.75 mg PO BID [facility] Ondansetron HCl (Ondansetron Hcl 4 Mg/2 Ml Vial) 4 mg IVPUSH Q8H PRN PRN Reason: Nausea and Vomiting Pregabalin (Pregabalin 75 Mg Capsule) 75 mg PO BID [facility] Last Admin: 04/23/24 10:38 Dose: 75 mg Documented By: CHANDRA Sodium Bicarbonate (Sodium Bicarbonate 650 Mg Tablet) 650 mg PO BID [facility] Last Admin: 04/23/24 10:38 Dose: 650 mg Documented By: CHANDRA Sodium Biphosphate/Sodium Phosphate (Sodium Phosphate,[place]-Dibasic 133 Ml Enema) 118 ml [place] DAILY PRN PRN Reason: Constipation Sodium Chloride (0.9 % Sodium Chloride Flush 3 Ml Syringe) 3 ml IVFLUSH QSHIFT [facility] Last Admin: 04/23/24 07:16 Dose: Not Given Documented By: CHANDRA Non-Admin Reason: IV Running Labs 04/23/24 06:36 04/23/24 06:36 Labs: Laboratory Results - last 24 hr 04/23/24 06:36 MCV 85.6 MCH 26.3 L MCHC 30.7 L RDW 14.3 Plt Count 345 MPV 9.6 Absolute Nucleated RBC 0.000 Nucleated RBC % (auto) 0.0 Anion Gap 11 L Estim Creat Clear Calc 45.4 Estimated GFR 53 Random Glucose 112 Calcium 8.6 D Assessment and Plan (1) VITOR (acute kidney injury): Status: Acute (2) Acute hypernatremia: Status: Acute (3) Fever: Status: Acute (4) Acute encephalopathy: Status: Acute (5) Elevated WBC count: Status: Acute (6) Acute parotitis: Status: Acute Plan 78-year-old female with past medical history of cerebral palsy, bed-bound, requires Bakari lift for transfer, [facility] resident, with multiple other medical issues including diabetes mellitus type 2, hypertension, urinary retention, anxiety depression, history of thrombocytosis on Eliquis was recently discharged from [place] emergency room on 04/16 after being diagnosed with acute right parotitis however patient was unable to take by mouth antibiotics and was noted to have decreased by mouth intake therefore transferred to [place] emergency room where patient noted to have sepsis likely due to acute parotitis and UTI Sepsis due to acute rt. parotitis and UTI remains afebrile, persistent leukocytosis WBC greater than 30,000 No severe sepsis Urine culture grew Pseudomonas only sensitive to gentamicin intermediate to Cipro and meropenem s/p IV vancomycin and Zosyn now on iv meropenem d3/7 blood culture x2 negative Check C diff. Acute toxic metabolic encephalopathy Resolved was likely due to infection and hypernatremia follow clinical course VITOR with a acute metabolic acidosis noted on 04/16 Creatinine normalized persistent mild acidosis , continue soda bicarb, and follow BMP Acute hypernatremia Sodium 160 on admission improved to 143, DC IV fluids Acute hypokalemia potassium 3 will replete and follow labs Bilateral hydroureteronephrosis, no urinary stones noted Wall thickening of the mucosa of the renal pelvis/ureters and bladder likely related to UTI Continue IV antibiotics as above Continue Hernandez catheter Stercoral colitis with history of chronic constipation Distention of distal sigmoid colon and rectum noted on CT abdomen Responded well to enema /at present having loose stools, hold stool softeners Hypertension noted to have elevated blood pressure on IV metoprolol will transition to po atenolol. Mood disorder on duloxetine 40 mg daily, pregabalin 75 mg b.i.d. and clorazepate 3.75 mg b.i.d., resume all home medications History of thrombocytosis unspecified on Eliquis/platelet normalized DVT prophylaxis On Eliquis 5 mg b.i.d. Full code Disposition to [facility] patient is a long-term care resident x4 years due to being bed bound with no mobility in lower half of body. Quality Stroke Does the patient have a stroke diagnosis?: No VTE Prior VTE?: No VTE Risk Level:: Medical - moderate - high VTE Device Contraindication: Treatment Not Indicated VTE Drug Contraindication: N/A - Med Ordered
[2024-04-23 15:46] LABS: CDiff Gene PCR POSITIVE (Negative)
[2024-04-23] MEDS: 0.9 % Sodium Chloride Flush 3 ML SYRINGE IVFLUSH ×2 (16:10→19:59)
[2024-04-23 16:46] LABS: CDiff Toxin Negative (Negative)
[2024-04-23 16:47] LABS: CDIFF Internal ctrl Dots and bkg OK (V)
[2024-04-23] MEDS: vancomycin HCL 125 MG CAPSULE PO (18:24)
[2024-04-23] MEDS: Melatonin 3 MG TABLET 6 MG PO (20:02)
[2024-04-24] MEDS: vancomycin HCL 125 MG CAPSULE PO ×4 (00:36→17:38)
[2024-04-24] MEDS: Meropenem 1 GM VIAL IVPUSH ×2 (00:36→12:42)
[2024-04-24 03:33] VITALS: BP 101/58; PULSE 91; RESP 16; TEMP 36.8; O2SAT 95
[2024-04-24 07:14] LABS: Hematocrit 32.8 % (37.0-47.0); Hemoglobin 10.1 g/dl (12.0-16.0); Mean Corpuscular HGB Conc 30.8 g/dl (31.0-35.0); Mean Corpuscular Hemoglobin 26.6 pg (27.0-33.0); Mean Corpuscular Volume 86.3 fL (80.0-98.0); Mean Platelet Volume 10.1 fL (9.4-12.3); Platelet Count 314 X10*3/uL (160-400); Red Cell Distribution Width 14.2 % (11.0-16.0)
[2024-04-24 07:15] LABS: Hematocrit 32.2 % (37.0-47.0); Mean Corpuscular HGB Conc 31.1 g/dl (31.0-35.0); Mean Corpuscular Hemoglobin 26.4 pg (27.0-33.0); Platelet Count 318 X10*3/uL (160-400); Red Blood Count 3.79 X10*6/uL (4.20-5.50); Red Cell Distribution Width 14.2 % (11.0-16.0); White Blood Count 28.1 X10*3/uL (4.8-10.8)
[2024-04-24 07:30] LABS: Anion Gap 10 (12-20); Blood Urea Nitrogen 32 mg/dL (9-16); Calcium 8.5 mg/dL (8.4-10.2); Carbon Dioxide 17 mmol/L (22-29); Chloride 119 mmol/L (96-108); Creatinine Clr Calc Pharmacy 50.3; Estimated Glomerular Filt Rate > 60; Glucose Random 102 mg/dL (60-115); Potassium 3.3 mmol/L (3.3-5.1); Sodium 143 mmol/L (135-145)
[2024-04-24 07:51] VITALS: BP 104/51; PULSE 78; RESP 19; TEMP 36.2; O2SAT 94
[2024-04-24] MEDS: 0.9 % Sodium Chloride Flush 3 ML SYRINGE IVFLUSH ×3 (08:15→19:56)
[2024-04-24] MEDS: Pregabalin 75 MG CAPSULE PO ×2 (08:15→19:56)
[2024-04-24] MEDS: Sodium Bicarbonate 650 MG TABLET PO ×2 (08:15→19:56)
[2024-04-24] MEDS: atenoloL 50 MG TABLET PO (08:15)
[2024-04-24] MEDS: Apixaban 5 MG TABLET PO ×2 (08:15→19:56)
[2024-04-24] MEDS: DULoxetine HCl 20 MG CAPSULE.DR 40 MG PO (08:15)
[2024-04-24 11:36] VITALS: BP 114/59; PULSE 87; RESP 19; TEMP 36.1; O2SAT 100
--- NOTE | 2024-04-24 13:49 | MHC.CM.PN ---
EMR reviewed and per MD rounds, pt is not medically cleared for discharge at this time.
--- NOTE | 2024-04-24 15:00 | MHC.SL.SWA ---
Speech Pathologist Impression: Mild oropharyngeal dysphagia Risk of Aspiration Due to: PMH dysphagia Weakness Dysphasia Diet Status: Liquid Consistency and Strategies for Safe Swallow: Liquid Intake Recommendation: Thin Liquid Intake Strategies: Small Sips Solid Food Consistency: Dietary Recommendations: Pureed (NDD1) Additional Modifications to Solid Foods: Oral Medication Intake: Crushed with Puree Please contact the pharmacy regarding appropriate crushable or liquid drug formulations that are available whenever modified delivery is recommended. Compensatory Strategies and Precautions to be Taken for Safe Swallow: Sitting Upright (90 deg) Alternate Liquids/Solids Rate of Ingestion Change Oral Check Supervision While Eating and Drinking for Safe Swallow: Foods to Avoid: Swallowing Recommended Treatments: Compens. Strategy Educat. Recommendation for Speech: Comment: Pt on pureed diet with thin liquids at baseline, pt tolerating baseline diet without difficulty at this time. PUBLIC HEALTH SPECIALIST continues to follow. Frequency/Duration: Date Range for Service Req: Timeline to reassess: Machine Adjuster Leader Case Trim Clinican/Clinical Fellow: No Supervisory Statement: I have reviewed and agree with the student/clinical fellow's documentation: N/A Speech Language Pathologist: Mallory Almeida M.S., CCC-PUBLIC HEALTH SPECIALIST
[2024-04-24 15:32] VITALS: BP 144/63; PULSE 91; RESP 19; TEMP 36.7; O2SAT 95
--- NOTE | 2024-04-24 15:38 | HO.PM.IMPN ---
Subjective Subjective Date of Service: 04/24/24 Interval History: Notes improvement in pain since admission. Tolerating diet Review of Systems Denies chest pain Denies shortness of breath Denies nausea vomiting diarrhea Denies fever chills Physical Exam Vital Signs: Vital Signs: Last Vital Signs Temp 98.0 F 04/24/24 15:32 Pulse 91 04/24/24 15:32 Resp 19 04/24/24 15:32 BP 144/63 H 04/24/24 15:32 Pulse Ox 95 04/24/24 15:32 O2 Del Method Room Air 04/24/24 15:32 O2 Flow Rate 2 04/20/24 04:00 BMI result Body Mass Index 30.9 Const: Other: Awake alert no acute distress HEENT: Other: Right parotid enlarged mildly tender without warmth Resp: Other: Clear to auscultation bilaterally no rales rhonchi or wheezes Cardio: Other: No S4; positive S1-S2; no S3 murmurs rubs or gallops GI: Other: Soft nontender nondistended normoactive bowel sounds Extrem: Other: No edema bilaterally Objective Data Active Medications Acetaminophen (Acetaminophen 325 Mg Tablet) 650 mg PO Q6H PRN PRN Reason: Pain, Mild 1-3,fever,headache Last Admin: 04/21/24 08:17 Dose: 650 mg Documented By: CHIRAG Al Hydroxide/Mg Hydroxide (Magnesium Hydrox/Alum Hydrox 30 Ml Oral.Susp) 30 ml PO QID PRN PRN Reason: MODERATE INDIGESTION Apixaban (Apixaban 5 Mg Tablet) 5 mg PO BID [facility] Last Admin: 04/24/24 08:15 Dose: 5 mg Documented By: CORAZON Atenolol (Atenolol 50 Mg Tablet) 50 mg PO DAILY [facility]; Protocol Last Admin: 04/24/24 08:15 Dose: 50 mg Documented By: CORAZON Bisacodyl (Bisacodyl 10 Mg Supp.Rect) 10 mg [place] DAILY PRN PRN Reason: Constipation Calcium Carbonate (Calcium Carbonate 750 Mg Tab.Chew) 750 mg PO Q4H PRN PRN Reason: Heartburn Duloxetine HCl (Duloxetine Hcl 20 Mg Capsule.Dr) 40 mg PO DAILY [facility] Last Admin: 04/24/24 08:15 Dose: 40 mg Documented By: CORAZON Magnesium Hydroxide (Milk Of Magnesia 30 Ml Oral.Susp) 30 ml PO DAILY PRN PRN Reason: Constipation Melatonin (Melatonin 3 Mg Tablet) 6 mg PO BEDTIME PRN PRN Reason: Insomnia Last Admin: 04/23/24 20:02 Dose: 6 mg Documented By: ASHELY Meropenem (Meropenem 1 Gm Vial) 1 gm IVPUSH Q12H [facility] Last Admin: 04/24/24 12:42 Dose: 1 gm Documented By: CORAZON Non-Formulary Medication (Clorazepate Dipotassium) 3.75 mg PO BID [facility] Ondansetron HCl (Ondansetron Hcl 4 Mg/2 Ml Vial) 4 mg IVPUSH Q8H PRN PRN Reason: Nausea and Vomiting Pregabalin (Pregabalin 75 Mg Capsule) 75 mg PO BID [facility] Last Admin: 04/24/24 08:15 Dose: 75 mg Documented By: CORAZON Sodium Bicarbonate (Sodium Bicarbonate 650 Mg Tablet) 650 mg PO BID [facility] Last Admin: 04/24/24 08:15 Dose: 650 mg Documented By: CORAZON Sodium Biphosphate/Sodium Phosphate (Sodium Phosphate,[place]-Dibasic 133 Ml Enema) 118 ml [place] DAILY PRN PRN Reason: Constipation Sodium Chloride (0.9 % Sodium Chloride Flush 3 Ml Syringe) 3 ml IVFLUSH QSHIFT [facility] Last Admin: 04/24/24 08:15 Dose: 3 ml Documented By: CORAZON Vancomycin HCl (Vancomycin Hcl 125 Mg Capsule) 125 mg PO Q6H [facility] Last Admin: 04/24/24 12:42 Dose: 125 mg Documented By: CORAZON Labs 04/24/24 06:32 04/24/24 06:31 Labs: Laboratory Results - last 24 hr 04/23/24 04/24/24 04/24/24 14:15 06:31 06:32 MCV 86.3 MCH MCHC RDW Plt Count MPV Absolute Nucleated RBC Nucleated RBC % (auto) Anion Gap 10 L Estim Creat Clear Calc 50.3 Estimated GFR > 60 Random Glucose 102 Calcium 8.5 C. difficile Tox B Gene POSITIVE A* C. difficile Toxin A&B Negative C. difficile Interpret SEE NOTE 04/24/24 04/24/24 04/24/24 06:32 06:32 06:32 MCV 85.0 MCH 26.6 L 26.4 L MCHC 30.8 L 31.1 RDW 14.2 Plt Count MPV Absolute Nucleated RBC Nucleated RBC % (auto) Anion Gap Estim Creat Clear Calc Estimated GFR Random Glucose Calcium C. difficile Tox B Gene C. difficile Toxin A&B C. difficile Interpret 04/24/24 04/24/24 04/24/24 06:32 06:32 06:32 MCV MCH MCHC RDW 14.2 Plt Count 314 318 MPV 10.1 10.0 Absolute Nucleated RBC 0.000 Nucleated RBC % (auto) Anion Gap Estim Creat Clear Calc Estimated GFR Random Glucose Calcium C. difficile Tox B Gene C. difficile Toxin A&B C. difficile Interpret 04/24/24 04/24/24 06:32 06:32 MCV MCH MCHC RDW Plt Count MPV Absolute Nucleated RBC 0.000 Nucleated RBC % (auto) 0.0 0.0 Anion Gap Estim Creat Clear Calc Estimated GFR Random Glucose Calcium C. difficile Tox B Gene C. difficile Toxin A&B C. difficile Interpret Assessment and Plan (1) Acute parotitis: Status: Acute (2) VITOR (acute kidney injury): Status: Acute Plan 78-year-old female with past medical history of cerebral palsy, bed-bound, requires Bakari lift for transfer, assisted resident, with multiple other medical issues including diabetes mellitus type 2, hypertension, urinary retention, anxiety depression, history of thrombocytosis on Eliquis was recently discharged from [place] emergency room on 04/16 after being diagnosed with acute right parotitis however patient was unable to take by mouth antibiotics and was noted to have decreased by mouth intake therefore transferred to [place] emergency room where patient noted to have sepsis likely due to acute parotitis and UTI 1.Sepsis due to acute rt. parotitis and UTI - WBC slowly trending downward.. Multifactorial - meropenem 07/24 -blood culture x2 negative -CDiff positive... Vancomycin 125 po QID 2.VITOR -slowly improving -continue bicarb -follow renals/divalents 3.Acute hypokalemia -repeated -follow renals/divalents 4.Bilateral hydroureteronephrosis -antibiotics as above 5.Hypertension -acceptable control on current therapies -adjust as indicated Mood disorder on duloxetine 40 mg daily, pregabalin 75 mg b.i.d. and clorazepate 3.75 mg b.i.d., resume all home medications Eliquis Full code Disposition to [facility] patient is a long-term care resident x4 years due to being bed bound with no mobility in lower half of body. Quality Stroke Does the patient have a stroke diagnosis?: No VTE Prior VTE?: No VTE Risk Level:: Medical - moderate - high VTE Device Contraindication: Treatment Not Indicated VTE Drug Contraindication: N/A - Med Ordered
[2024-04-24] MEDS: Acetaminophen 325 MG TABLET 650 MG PO (17:38)
[2024-04-24 19:30] VITALS: BP 97/42; PULSE 85; RESP 16; TEMP 36.3; O2SAT 95
[2024-04-24] MEDS: Melatonin 3 MG TABLET 6 MG PO (19:56)
[2024-04-24 23:41] VITALS: BP 114/51; PULSE 80; RESP 16; TEMP 36.2; O2SAT 94
[2024-04-25] MEDS: Meropenem 1 GM VIAL IVPUSH ×3 (00:28→23:17)
[2024-04-25] MEDS: vancomycin HCL 125 MG CAPSULE PO ×5 (00:28→23:17)
[2024-04-25 03:30] VITALS: BP 127/57; PULSE 87; RESP 16; TEMP 36.2; O2SAT 97
[2024-04-25 07:08] VITALS: BP 120/56; PULSE 78; RESP 16; TEMP 36.2; O2SAT 95
[2024-04-25] MEDS: DULoxetine HCl 20 MG CAPSULE.DR 40 MG PO (08:27)
[2024-04-25] MEDS: Sodium Bicarbonate 650 MG TABLET PO ×2 (08:28→22:07)
[2024-04-25] MEDS: Pregabalin 75 MG CAPSULE PO ×2 (08:28→22:07)
[2024-04-25] MEDS: atenoloL 50 MG TABLET PO (08:28)
[2024-04-25] MEDS: Apixaban 5 MG TABLET PO ×2 (08:28→22:07)
[2024-04-25] MEDS: 0.9 % Sodium Chloride Flush 3 ML SYRINGE IVFLUSH ×3 (08:28→22:08)
[2024-04-25 10:53] VITALS: BP 119/57; PULSE 86; RESP 16; TEMP 36.2; O2SAT 96
[2024-04-25 11:46] LABS: Basophils Absolute Auto 0.1 X10*3/uL (0.0-0.2); Basophils Percent Auto 0.3 % (0-2); Eosinophils Absolute Auto 0.8 X10*3/uL (0.0-0.4); Eosinophils Percent Auto 2.4 % (0-4); Hematocrit 30.2 % (37.0-47.0); Hemoglobin 9.4 g/dl (12.0-16.0); Imm Gran Abs Auto 0.56 X10*3/uL (0.00-0.03); Imm Gran Pct Auto 1.7 % (0.0-0.4); MANUAL DIFF FLAG SCAN; Mean Corpuscular HGB Conc 31.1 g/dl (31.0-35.0); Mean Corpuscular Hemoglobin 26.6 pg (27.0-33.0); Mean Corpuscular Volume 85.3 fL (80.0-98.0); Mean Platelet Volume 10.1 fL (9.4-12.3); Monocytes Absolute Auto 2.2 X10*3/uL (0.1-1.2); Monocytes Percent Auto 6.7 % (2-11); Neutrophils Absolute Auto 26.9 x10*3/uL (2.0-8.3); Neutrophils Percent Auto 79.9 % (45-73); Platelet Count 324 X10*3/uL (160-400); Red Blood Count 3.54 X10*6/uL (4.20-5.50); Red Cell Distribution Width 14.4 % (11.0-16.0); SCAN SMEAR FLAG 1
[2024-04-25 11:56] LABS: White Blood Count 33.6 X10*3/uL (4.8-10.8)
[2024-04-25 12:06] LABS: SLIDE REVIEW VERIFIED
[2024-04-25 12:20] LABS: Alanine Aminotransferase 8 U/L (0-31); Albumin Level 2.4 g/dL (3.5-5.0); Alkaline Phosphatase 90 U/L (39-117); Anion Gap 9 (12-20); Aspartate Amino Transferase 14 U/L (5-31); Bilirubin Total 0.1 mg/dL (0.0-1.0); Blood Urea Nitrogen 30 mg/dL (9-16); Calcium 8.5 mg/dL (8.4-10.2); Carbon Dioxide 21 mmol/L (22-29); Chloride 115 mmol/L (96-108); Creatinine Clr Calc Pharmacy 48.7; Estimated Glomerular Filt Rate 58; Glucose Fasting 145 mg/dL (60-99); Potassium 2.8 mmol/L (3.3-5.1); Sodium 142 mmol/L (135-145); Total Protein 6.2 g/dL (6.5-8.0)
--- NOTE | 2024-04-25 14:46 | MHC.SL.DTX ---
Dysphagia Diet modifications: Last documented Solid diet consistencies: Pureed (NDD1) Last documented Liquid consistency: Thin Last documented Medication Administration: Changes made to current diet?: No Liquid Consistency and Strategies: Liquid Intake Recommendation: Thin Compensatory Strategies for Safe Swallow: Small Sips Compensatory Strategies for Safe Swallow(b): Sitting Upright (90 deg) Alternate Liquids/Solids Rate of Ingestion Change Oral Check Solid Food Consistency: Dietary Recommendations: Pureed (NDD1) Additional Modifications to Solids: Oral Medication Intake: Whole with Puree Strategies and Precautions to be Taken for Safe Swallow: Sitting Upright (90 deg) Alternate Liquids/Solids Rate of Ingestion Change Oral Check Supervision While Eating and/Drinking: Foods to Avoid: Swallowing Recommended Treatments: Compens. Strategy Educat. Level of Impact on: Daily activities: Interpersonal interactions: Education: Employment: Community: Prognosis for Improvement: Recommendation for Speech: Comment: Frequency/Duration: Date Range for Service Req: Timeline to reassess: Additional Comments: Treatment: While TOMBSTONE SETTER was feeding the patient, she called out from the room stating that the Pt had just aspirated on Thin Liquids. SECURITY ESCORT returned and Pt passed for Puree Solids and Thin Liquids, her current diet. SECURITY ESCORT was careful to limit her sips from a straw to x1-2 consecutive sips before pinching the straw and drawing it away from her mouth. This proved effective in eliminating aspiration s/s. No changes to diet recommend. Additional feeding precautions listed on board to limit straw sips x1-2 while feeding. SECURITY ESCORT will follow-up x1 as Pt is otherwise at her baseline diet per admission paperwork. Assessment: Pipe Bender Clinican/Clinical Fellow: No Supervisory Statement: I have reviewed and agree with the student/clinical fellow's documentation: N/A Speech Language Pathologist: Gus Calhoun M.A., [facility]-SECURITY ESCORT
[2024-04-25] MEDS: Potassium Chloride Packet 20 MEQ PACKET 40 MEQ PO ×2 (14:52→22:08)
--- NOTE | 2024-04-25 15:19 | P.PNIM_ITS ---
Subjective Subjective Date of Service: 04/25/24 Interval History: Continues to improve. Needs to complete 2 additional days of IV meropenem Review of Systems Denies chest pain Denies shortness of breath Denies nausea vomiting diarrhea Denies fever chills Physical Exam 2 Vital Signs: Vital Signs: Last Vital Signs Temp 97.1 F 04/25/24 10:53 Pulse 86 04/25/24 10:53 Resp 16 04/25/24 10:53 BP 119/57 L 04/25/24 10:53 Pulse Ox 96 04/25/24 10:53 O2 Del Method Room Air 04/25/24 10:53 O2 Flow Rate 2 04/20/24 04:00 BMI result Body Mass Index 30.9 Const: Other: Awake alert no acute distress HEENT: Other: Right parotid enlarged mildly tender without warmth Resp: Other: Clear to auscultation bilaterally no rales rhonchi or wheezes Cardio: Other: No S4; positive S1-S2; no S3 murmurs rubs or gallops GI: Other: Soft nontender nondistended normoactive bowel sounds Extrem: Other: No edema bilaterally Objective Data Active Medications Acetaminophen (Acetaminophen 325 Mg Tablet) 650 mg PO Q6H PRN PRN Reason: Pain, Mild 1-3,fever,headache Last Admin: 04/24/24 17:38 Dose: 650 mg Documented By: CORAZON Al Hydroxide/Mg Hydroxide (Magnesium Hydrox/Alum Hydrox 30 Ml Oral.Susp) 30 ml PO QID PRN PRN Reason: MODERATE INDIGESTION Apixaban (Apixaban 5 Mg Tablet) 5 mg PO BID [facility] Last Admin: 04/25/24 08:28 Dose: 5 mg Documented By: CORAZON Atenolol (Atenolol 50 Mg Tablet) 50 mg PO DAILY [facility]; Protocol Last Admin: 04/25/24 08:28 Dose: 50 mg Documented By: CORAZON Bisacodyl (Bisacodyl 10 Mg Supp.Rect) 10 mg [place] DAILY PRN PRN Reason: Constipation Calcium Carbonate (Calcium Carbonate 750 Mg Tab.Chew) 750 mg PO Q4H PRN PRN Reason: Heartburn Duloxetine HCl (Duloxetine Hcl 20 Mg Capsule.Dr) 40 mg PO DAILY [facility] Last Admin: 04/25/24 08:27 Dose: 40 mg Documented By: CORAZON Magnesium Hydroxide (Milk Of Magnesia 30 Ml Oral.Susp) 30 ml PO DAILY PRN PRN Reason: Constipation Melatonin (Melatonin 3 Mg Tablet) 6 mg PO BEDTIME PRN PRN Reason: Insomnia Last Admin: 04/24/24 19:56 Dose: 6 mg Documented By: ASHELY Meropenem (Meropenem 1 Gm Vial) 1 gm IVPUSH Q12H [facility] Last Admin: 04/25/24 12:19 Dose: 1 gm Documented By: CORAZON Non-Formulary Medication (Clorazepate Dipotassium) 3.75 mg PO BID [facility] Ondansetron HCl (Ondansetron Hcl 4 Mg/2 Ml Vial) 4 mg IVPUSH Q8H PRN PRN Reason: Nausea and Vomiting Potassium Chloride (Potassium Chloride Packet 20 Meq Packet) 40 meq PO BID [facility] Stop: 04/26/24 09:01 Last Admin: 04/25/24 14:52 Dose: 40 meq Documented By: CORAZON Pregabalin (Pregabalin 75 Mg Capsule) 75 mg PO BID [facility] Last Admin: 04/25/24 08:28 Dose: 75 mg Documented By: CORAZON Sodium Bicarbonate (Sodium Bicarbonate 650 Mg Tablet) 650 mg PO BID [facility] Last Admin: 04/25/24 08:28 Dose: 650 mg Documented By: CORAZON Sodium Biphosphate/Sodium Phosphate (Sodium Phosphate,[place]-Dibasic 133 Ml Enema) 118 ml [place] DAILY PRN PRN Reason: Constipation Sodium Chloride (0.9 % Sodium Chloride Flush 3 Ml Syringe) 3 ml IVFLUSH QSHIFT [facility] Last Admin: 04/25/24 14:57 Dose: 3 ml Documented By: CORAZON Vancomycin HCl (Vancomycin Hcl 125 Mg Capsule) 125 mg PO Q6H [facility] Last Admin: 04/25/24 12:16 Dose: 125 mg Documented By: CORAZON Labs 04/25/24 11:27 04/25/24 11:27 Labs: Laboratory Results - last 24 hr 04/25/24 11:27 MCV 85.3 MCH 26.6 L MCHC 31.1 RDW 14.4 Plt Count 324 MPV 10.1 Immature Gran % (Auto) 1.7 H Neut % (Auto) 79.9 H Lymph % (Auto) 9.0 L [place] % (Auto) 6.7 Eos % (Auto) 2.4 Baso % (Auto) 0.3 Lymph # (Auto) 3.0 [place] # (Auto) 2.2 H Eos # (Auto) 0.8 H Baso # (Auto) 0.1 Abs Immat Gran (auto) 0.56 H Absolute Neuts (auto) 26.9 H Absolute Nucleated RBC 0.000 Nucleated RBC % (auto) 0.0 Smear Tech's Comments VERIFIED Anion Gap 9 L Estim Creat Clear Calc 48.7 Estimated GFR 58 Fasting Glucose 145 H Calcium 8.5 Total Bilirubin 0.1 AST 14 ALT 8 Alkaline Phosphatase 90 Total Protein 6.2 L Albumin 2.4 L Microbiology Microbiology Results: Microbiology 04/19/24 13:39 Blood Culture - Final Blood - Venous No growth after 5 days. 04/19/24 13:39 Blood Culture - Final Blood - Venous No growth after 5 days. Assessment and Plan (1) Elevated WBC count: Status: Acute (2) Acute parotitis: Status: Acute (3) VITOR (acute kidney injury): Status: Acute Plan 78-year-old female with past medical history of cerebral palsy, bed-bound, requires Bakari lift for transfer, long-term resident, with multiple other medical issues including diabetes mellitus type 2, hypertension, urinary retention, anxiety depression, history of thrombocytosis on Eliquis was recently discharged from [place] emergency room on 04/16 after being diagnosed with acute right parotitis however patient was unable to take by mouth antibiotics and was noted to have decreased by mouth intake therefore transferred to [place] emergency room where patient noted to have sepsis likely due to acute parotitis and UTI 1.Sepsis due to acute rt. parotitis and UTI - WBC slowly trending downward.. Multifactorial - meropenem 08/23 -blood culture x2 negative -CDiff positive... Vancomycin 125 po QID 2.VITOR -slowly improving -continue bicarb -follow renals/divalents 3.Acute hypokalemia -repeated -follow renals/divalents 4.Bilateral hydroureteronephrosis -antibiotics as above 5.Hypertension -acceptable control on current therapies -adjust as indicated Mood disorder on duloxetine 40 mg daily, pregabalin 75 mg b.i.d. and clorazepate 3.75 mg b.i.d., resume all home medications Eliquis Full code Disposition to [facility] patient is a long-term care resident x4 years due to being bed bound with no mobility in lower half of body. Quality Stroke Does the patient have a stroke diagnosis?: No VTE Prior VTE?: No VTE Risk Level:: Medical - moderate - high VTE Device Contraindication: Treatment Not Indicated VTE Drug Contraindication: N/A - Med Ordered
[2024-04-25 15:26] VITALS: BP 115/58; PULSE 89; RESP 22; TEMP 36.2; O2SAT 95
[2024-04-25 18:52] VITALS: BP 124/58; PULSE 94; RESP 24; TEMP 36.2; O2SAT 94
[2024-04-26] VITALS (8 sets, daily range): BP systolic 98–134; BP diastolic 52–61; PULSE 66–87; RESP 18–20; TEMP 36.1–36.7; O2SAT 94–99
[2024-04-26] MEDS: vancomycin HCL 125 MG CAPSULE PO ×3 (06:14→17:41)
[2024-04-26] MEDS: DULoxetine HCl 20 MG CAPSULE.DR 40 MG PO (09:47)
[2024-04-26] MEDS: atenoloL 50 MG TABLET PO (09:47)
[2024-04-26] MEDS: Potassium Chloride Packet 20 MEQ PACKET 40 MEQ PO (09:47)
[2024-04-26] MEDS: Sodium Bicarbonate 650 MG TABLET PO ×2 (09:47→21:30)
[2024-04-26] MEDS: Acetaminophen 325 MG TABLET 650 MG PO ×2 (09:47→21:30)
[2024-04-26] MEDS: Pregabalin 75 MG CAPSULE PO ×2 (09:47→21:30)
[2024-04-26] MEDS: Apixaban 5 MG TABLET PO ×2 (09:47→21:30)
[2024-04-26] MEDS: 0.9 % Sodium Chloride Flush 3 ML SYRINGE IVFLUSH ×3 (09:48→21:30)
[2024-04-26] MEDS: Meropenem 1 GM VIAL IVPUSH (12:04)
[2024-04-26] MEDS: Lactated Ringers 1,000 ML 999 ML IV (12:04)
--- NOTE | 2024-04-26 12:10 | MHC.SL.SWA ---
Speech Pathologist Impression: Oropharyngeal dysphagia, mild historically d/t PMH CP. Risk of Aspiration Due to: Impulsivity with PO intake Pre-existing dysphagia Bedbound Dysphasia Diet Status: Puree Solids and Thin Liquids. 1:1 Feed. Meds Whole, or Crushed, as tolerated. Straws OK, however LIMIT SIPS to x1-2. Note written on board in pt room by SHUTTLE HAND 04/25 Liquid Consistency and Strategies for Safe Swallow: Liquid Intake Recommendation: Thin Liquid Intake Strategies: Small Sips Solid Food Consistency: Dietary Recommendations: Pureed (NDD1) Additional Modifications to Solid Foods: Oral Medication Intake: Whole with Puree Please contact the pharmacy regarding appropriate crushable or liquid drug formulations that are available whenever modified delivery is recommended. Compensatory Strategies and Precautions to be Taken for Safe Swallow: Sitting Upright (90 deg) Liquids from Cup Small Bites and Sips Rate of Ingestion Change Supervision While Eating and Drinking for Safe Swallow: Total Assistance (1:1) Foods to Avoid: Swallowing Recommended Treatments: Compens. Strategy Educat. Recommendation for Speech: Comment: Pt needs careful supervision when sipping liquids d/t impulsivity. Oropharyneal coordination WFL for thins and purees given 1:1 supervision for adequate pacing. SHUTTLE HAND continues to follow. Frequency/Duration: Date Range for Service Req: Timeline to reassess: Cultural Centre Manager Clinican/Clinical Fellow: No Supervisory Statement: I have reviewed and agree with the student/clinical fellow's documentation: N/A Speech Language Pathologist: Mallory Almeida M.S., CCC-[facility]TLE [facility]
--- NOTE | 2024-04-26 12:58 | P.PNIM_ITS ---
Subjective Subjective Date of Service: 04/26/24 Interval History: Stool slowly forming up. Episode of relative hypotension that responded to fluids and albumin. No acute issues Review of Systems Denies chest pain Denies shortness of breath Denies nausea vomiting diarrhea Denies fever chills Physical Exam 2 Vital Signs: Vital Signs: Last Vital Signs Temp 98.1 F 04/26/24 11:40 Pulse 74 04/26/24 11:40 Resp 18 04/26/24 11:40 BP 123/58 L 04/26/24 12:44 Pulse Ox 98 04/26/24 11:40 O2 Del Method Room Air 04/26/24 11:40 O2 Flow Rate 2 04/20/24 04:00 BMI result Body Mass Index 30.9 Const: Other: Awake alert no acute distress HEENT: Other: Right parotid enlarged mildly tender without warmth Resp: Other: Clear to auscultation bilaterally no rales rhonchi or wheezes Cardio: Other: No S4; positive S1-S2; no S3 murmurs rubs or gallops GI: Other: Soft nontender nondistended normoactive bowel sounds Extrem: Other: No edema bilaterally Objective Data Active Medications Acetaminophen (Acetaminophen 325 Mg Tablet) 650 mg PO Q6H PRN PRN Reason: Pain, Mild 1-3,fever,headache Last Admin: 04/26/24 09:47 Dose: 650 mg Documented By: ELEONORA Al Hydroxide/Mg Hydroxide (Magnesium Hydrox/Alum Hydrox 30 Ml Oral.Susp) 30 ml PO QID PRN PRN Reason: MODERATE INDIGESTION Apixaban (Apixaban 5 Mg Tablet) 5 mg PO BID [facility] Last Admin: 04/26/24 09:47 Dose: 5 mg Documented By: ELEONORA Atenolol (Atenolol 50 Mg Tablet) 50 mg PO DAILY [facility]; Protocol Last Admin: 04/26/24 09:47 Dose: 50 mg Documented By: LEEONORA Bisacodyl (Bisacodyl 10 Mg Supp.Rect) 10 mg [place] DAILY PRN PRN Reason: Constipation Calcium Carbonate (Calcium Carbonate 750 Mg Tab.Chew) 750 mg PO Q4H PRN PRN Reason: Heartburn Duloxetine HCl (Duloxetine Hcl 20 Mg Capsule.Dr) 40 mg PO DAILY [facility] Last Admin: 04/26/24 09:47 Dose: 40 mg Documented By: ELEONORA Lactated Ringer's (Lr) 1,000 mls @ 999 mls/hr IV .Q1H1M [facility] Stop: 04/26/24 13:00 Last Admin: 04/26/24 12:04 Dose: 999 mls/hr Documented By: ELEONORA Albumin Human (Kedbumin 25 %) 100 mls @ 100 mls/hr IV Q6H [facility] Stop: 04/27/24 06:59 Magnesium Hydroxide (Milk Of Magnesia 30 Ml Oral.Susp) 30 ml PO DAILY PRN PRN Reason: Constipation Melatonin (Melatonin 3 Mg Tablet) 6 mg PO BEDTIME PRN PRN Reason: Insomnia Last Admin: 04/24/24 19:56 Dose: 6 mg Documented By: ASHELY Meropenem (Meropenem 1 Gm Vial) 1 gm IVPUSH Q12H [facility] Last Admin: 04/26/24 12:04 Dose: 1 gm Documented By: ELEONORA Non-Formulary Medication (Clorazepate Dipotassium) 3.75 mg PO BID [facility] Ondansetron HCl (Ondansetron Hcl 4 Mg/2 Ml Vial) 4 mg IVPUSH Q8H PRN PRN Reason: Nausea and Vomiting Pregabalin (Pregabalin 75 Mg Capsule) 75 mg PO BID [facility] Last Admin: 04/26/24 09:47 Dose: 75 mg Documented By: ELEONORA Sodium Bicarbonate (Sodium Bicarbonate 650 Mg Tablet) 650 mg PO BID [facility] Last Admin: 04/26/24 09:47 Dose: 650 mg Documented By: ELEONORA Sodium Biphosphate/Sodium Phosphate (Sodium Phosphate,[place]-Dibasic 133 Ml Enema) 118 ml [place] DAILY PRN PRN Reason: Constipation Sodium Chloride (0.9 % Sodium Chloride Flush 3 Ml Syringe) 3 ml IVFLUSH QSHIFT [facility] Last Admin: 04/26/24 09:48 Dose: 3 ml Documented By: ELEONORA Vancomycin HCl (Vancomycin Hcl 125 Mg Capsule) 125 mg PO Q6H [facility] Last Admin: 04/26/24 12:04 Dose: 125 mg Documented By: ELEONORA Labs 04/25/24 11:27 04/25/24 11:27 Assessment and Plan (1) Acute parotitis: Status: Acute (2) Acute hypernatremia: Status: Acute (3) VITOR (acute kidney injury): Status: Acute Plan 78-year-old female with past medical history of cerebral palsy, bed-bound, requires Bak[facility] lift for transfer, [facility] resident, with multiple other medical issues including diabetes mellitus type 2, hypertension, urinary retention, anxiety depression, history of thrombocytosis on Eliquis was recently discharged from [place] emergency room on 04/16 after being diagnosed with acute right parotitis however patient was unable to take by mouth antibiotics and was noted to have decreased by mouth intake therefore transferred to [place] emergency room where patient noted to have sepsis likely due to acute parotitis and UTI 1.Sepsis due to acute rt. parotitis and UTI - WBC slowly trending downward.. Multifactorial - meropenem 09/23 -blood culture x2 negative -CDiff positive... Vancomycin 125 po QID.. Stools beginning to form 2.VITOR -slowly improving -continue bicarb -follow renals/divalents 3.Acute hypokalemia -repeated -follow renals/divalents 4.Bilateral hydroureteronephrosis -antibiotics as above 5.Hypertension -acceptable control on current therapies -adjust as indicated Mood disorder on duloxetine 40 mg daily, pregabalin 75 mg b.i.d. and clorazepate 3.75 mg b.i.d., resume all home medications Eliquis [facility] care resident x4 years due to being bed bound with no mobility in lower half of body. Quality Stroke Does the patient have a stroke diagnosis?: No VTE Prior VTE?: No VTE Risk Level:: Medical - moderate - high VTE Device Contraindication: Treatment Not Indicated VTE Drug Contraindication: N/A - Med Ordered
[2024-04-26] MEDS: Albumin Human 25 % 100 ML IV ×2 (13:04→17:41)
--- NOTE | 2024-04-26 14:49 | MHC.CM.PN ---
EMR reviewed and per MD rounds, pt is not medically cleared for discharge today.
[2024-04-27] VITALS: BP 110/56; PULSE 78; RESP 15; TEMP 36.4; O2SAT 98
[2024-04-27] MEDS: Albumin Human 25 % 100 ML IV ×2 (00:51→05:16)
[2024-04-27] MEDS: Meropenem 1 GM VIAL IVPUSH ×2 (00:52→12:09)
[2024-04-27] MEDS: vancomycin HCL 125 MG CAPSULE PO ×3 (00:52→12:09)
[2024-04-27] MEDS: Melatonin 3 MG TABLET 6 MG PO (01:26)
[2024-04-27 04:00] VITALS: BP 107/56; PULSE 97; RESP 16; TEMP 36.7; O2SAT 98
[2024-04-27 07:12] VITALS: BP 118/61; PULSE 61; RESP 14; TEMP 36.2; O2SAT 98
[2024-04-27] MEDS: Sodium Bicarbonate 650 MG TABLET PO (08:29)
[2024-04-27] MEDS: 0.9 % Sodium Chloride Flush 3 ML SYRINGE IVFLUSH (08:29)
[2024-04-27] MEDS: Apixaban 5 MG TABLET PO (08:29)
[2024-04-27] MEDS: DULoxetine HCl 20 MG CAPSULE.DR 40 MG PO (08:29)
[2024-04-27] MEDS: Pregabalin 75 MG CAPSULE PO (08:29)
[2024-04-27] MEDS: atenoloL 50 MG TABLET PO (08:29)
[2024-04-27] MEDS: Acetaminophen 325 MG TABLET 650 MG PO (08:49)
--- NOTE | 2024-04-27 10:34 | MHC.SL.SWA ---
Speech Pathologist Impression: Risk of Aspiration, Oropharyngeal Dysphagia Dysphasia Diet Status: Puree Solids and Thin Liquids. 1:1 Feed. Meds Whole, or Crushed, as tolerated. Straws OK, however LIMIT SIPS to x1-2. Note written on board in pt room by REGRADER 04/25 Liquid Consistency and Strategies for Safe Swallow: Liquid Intake Recommendation: Thin Liquid Intake Strategies: Small Sips Solid Food Consistency: Dietary Recommendations: Pureed (NDD1) Additional Modifications to Solid Foods: Pinch straw for individual sips Oral Medication Intake: Whole with Puree Please contact the pharmacy regarding appropriate crushable or liquid drug formulations that are available whenever modified delivery is recommended. Compensatory Strategies and Precautions to be Taken for Safe Swallow: Sitting Upright (90 deg) Small Bites and Sips Alternate Liquids/Solids Rate of Ingestion Change Supervision While Eating and Drinking for Safe Swallow: Total Assistance (1:1) Swallowing Recommended Treatments: Compens. Strategy Educat. Recommendation for Speech: PRN M-F during inpatient stay Raise Driller Clinican/Clinical Fellow: No Supervisory Statement: I have reviewed and agree with the student/clinical fellow's documentation: N/A Speech Language Pathologist: Mena Mcadams M.A., [facility]-REGRADER
--- NOTE | 2024-04-27 10:48 | MHC.CM.PN ---
IMM 04/27/24 DELIVERED TO DTR/HCP RACHEL RAMOS AGREEABLE TO DC PLAN FOR PT TO RETURN TO LTC AT [facility] BLS TRANSPORT AT 2PM.
[2024-04-27 12:00] VITALS: BP 106/54; PULSE 68; RESP 16; TEMP 36.2; O2SAT 99
--- NOTE | 2024-04-27 12:26 | P.DS_ITS ---
DS: Providers Provider Date of Service: 04/27/24 Date of admission: 04/19/24 16:50 Date of discharge: 04/27/24 Primary care physician: Margie Noguera MD Consults: 04/21/24 11:00 Consult to Infectious Diseases Routine Consulting Provider: [facility] Reason for consultation: pseudomonas uti Has provider been notified: No DS: Diagnosis Discharge Diagnosis (1) Acute parotitis: Status: Acute (2) Acute hypernatremia: Status: Acute (3) VITOR (acute kidney injury): Status: Acute DS: Summary Hospital Course Hospital Course: 78-year-old female with past medical history of cerebral palsy, CHF, GERD, ICH, diabetes mellitus type 2, hypertension, urinary retention, anxiety, depression, diverticulosis, failure to thrive on Eliquis with history of thrombocytosis was recently seen in emergency room on 04/16 was diagnosed to have right acute parotitis and UTI at that time WBC count was 17,000 patient was treated with 1 dose of IV ceftriaxone and was discharged back to senior living on cephalexin, CT scan of abdomen and pelvis on 04/16 showed severe bilateral hydro ureteral nephrosis mucosal thickening of urinary system, UA was positive however urine culture showed mixed bacteria, Patient unable to provide detailed history due to weakness confusion and hard of hearing, 2 daughters at bedside inform that patient was complaining of right facial pain, has decreased by mouth intake since discharge and has not taken her antibiotic this morning she was noted to be lethargic confused had a fever of 99 at senior living, here in ED patient noted to have a temp of 102.6 degrees, WBC count is 22,000 platelets of 574 , hypernatremia, CT head showed no acute abnormality, chest x-ray is unremarkable, soft tissue neck showed mild right submandibular sialoadenitis, right acute parotitis, UA positive for 4+ bacteria greater than 50 WBC count in large leukocyte esterase, patient treated in the emergency room with IV fluids IV Zosyn, IV vancomycin, IV Tylenol and low-dose labetalol for high per tension patient is now being admitted to [facility] with acute toxic metabolic encephalopathy sepsis due to acute parotitis/UTI. Hospital Course Patient admitted to general medical floor and started on meropenem and vancomycin. Consultation was placed to ID who recommended 1 week of meropenem. Patient did develop diarrhea which tested positive ultimately for C diff. at this point in time her parotitis has resolved; she will be discharged on vancomycin 125 q.i. Wednesday and Wednesday 125 dailyd. x7 125 t.i.d. x7, 125 b.i.d. x7, 125 daily x7. She will then need suppressive therapy Wednesday and Wednesday 125 mg daily. Further plans as per receiving facility Time Attestation Discharge Coordination Time (in mins): 35 Quality: Safe Use of Opioids Does Pt have an Active Cancer Diagnosis on the Problem List?: No Quality: Stroke Does the patient have a stroke diagnosis?: No Physical Exam Vital Signs: Vital Signs: Last Vital Signs Temp 97.2 F 04/27/24 12:00 Pulse 68 04/27/24 12:00 Resp 16 04/27/24 12:00 BP 106/54 L 04/27/24 12:00 Pulse Ox 99 04/27/24 12:00 O2 Del Method Room Air 04/27/24 12:00 O2 Flow Rate 2 04/20/24 04:00 BMI result Body Mass Index 30.9 Const: Other: Awake alert no acute distress HEENT: Other: Right parotid enlarged mildly tender without warmth Resp: Other: Clear to auscultation bilaterally no rales rhonchi or wheezes Cardio: Other: No S4; positive S1-S2; no S3 murmurs rubs or gallops GI: Other: Soft nontender nondistended normoactive bowel sounds Extrem: Other: No edema bilaterally Discharge Plan Discharge Anticipated Discharge Date/Time: 04/27/24 12:22 Patient Disposition: er [facility] Discharge Diagnosis: Acute right parotitis Referrals: [facility] [Outside] - 1 Day (RESUMPTION OF CARE) Margie Noguera MD [Primary Care Provider] - 1 Week Discharge Medications: New vancomycin 125 mg Capsule 125 mg PO Q6H Qty: 28 0RF sodium bicarbonate 650 mg Tablet 650 mg PO BID Qty: 60 0RF Continued clorazepate dipotassium 3.75 mg tablet 3.75 mg PO BID atenolol 50 mg tablet 50 mg PO DAILY duloxetine 20 mg capsule,delayed release(DR/EC) 40 mg PO DAILY pregabalin 75 mg capsule 75 mg PO BID Eliquis 5 mg tablet 5 mg PO BID dextrose [Glucose Gel] 40 % Gel 10 g PO ONCE PRN (Reason: Hypoglycemia) Rx Instructions: GIVE 1 TUBE PO/SL IF FSBS <50 AND ABLE TO SWALLOW acetaminophen 500 mg Tablet 500 mg PO Q6H PRN (Reason: Fever Or Pain) magnesium hydroxide [Milk of Magnesia] 400 mg/5 mL Suspension 30 ml PO DAILY PRN (Reason: Constipation) Rx Instructions: USE IF NO BOWEL MOVEMENT FOR 3 DAYS bisacodyl 10 mg Suppository 10 mg ME DAILY PRN (Reason: Constipation) Rx Instructions: USE IF NO BOWEL MOVEMENT FOR 8 HOURS AFTER MILK OF MAGNESIA Fleet Enema 19-7 gram/118 mL Enema 118 ml ME DAILY PRN (Reason: Constipation) Rx Instructions: USE IF NO BOWEL MOVEMENT FOR 8 HOURS AFTER BISACODYL SUPPOSITORY alum-mag hydroxide-simeth 200-200-20 mg/5 mL Suspension 15 ml PO QID PRN (Reason: MILD INDIGESTION) Rx Instructions: administer 1 HOUR AFTER MEALS and at bedtime alum-mag hydroxide-simeth 200-200-20 mg/5 mL Suspension 30 ml PO QID PRN (Reason: MODERATE INDIGESTION) Rx Instructions: ADMINISTER ONE HOUR AFTER MEALS AND AT BEDTIME GlucaGen HypoKit 1 mg Recon Soln 1 mg SUBCUT ONCE PRN (Reason: Hypoglycemia) Rx Instructions: USE IF FSBS <60 AND UNABLE TO SWALLOW cranberry 450 mg Tablet 400 mg PO DAILY Discontinued cephalexin 500 mg capsule 500 mg PO Q6H 10 Days Qty: 40 0RF Rx Instructions: for 10 days, until 04/27/24 23:59 Discharge Orders: Discharge Order (Routine); Ordered 04/27/24 Ordered By: Sammy Umana Diet: Advance to usual diet Activity on Discharge: As tolerated Stand Alone Forms: Patient Portal Discharge page Print Language: Georgian Care Plan Goals: Patient completed a 7 day course of ertapenem with good resolution of parotitis. Patient did test positive for C diff. She will need vancomycin 125 q.i.d. x7 days then t.i.d. x7 days then b.i.d. x7 days then daily x7 days. She will require vancomycin 125 daily Wednesday and Wednesday thereafter Health Concerns: Continue all medicines as before hospitalization Plan of Treatment: As per receiving facility Assessment: See discharge summary
== END 2024-04-27 14:20 | DRG 871 ==
LOC: HO.ED 16:14 → HO.EDOVER 16:56 → HO.IMC 19:36
PROVIDERS: Admitting Provider Hospitalist; Emergency Provider Emergency Medicine; PCP Internal Medicine; Visit Provider Hospitalist
DX: A41.9 Sepsis, unspecified organism (principal); G92.8 Other toxic encephalopathy; E87.0 Hyperosmolality and hypernatremia; N13.6 Pyonephrosis; N17.9 Acute kidney failure, unspecified; A04.72 Enterocolitis due to Clostridium difficile, not specified as recurrent; E87.21 Acute metabolic acidosis; E87.6 Hypokalemia; I11.0 Hypertensive heart disease with heart failure; I50.9 Heart failure, unspecified; F39 Unspecified mood [affective] disorder; E11.9 Type 2 diabetes mellitus without complications; D75.839 Thrombocytosis, unspecified; G80.9 Cerebral palsy, unspecified; K11.21 Acute sialoadenitis; K59.09 Other constipation; K52.89 Other specified noninfective gastroenteritis and colitis; Z20.822 Contact with and (suspected) exposure to COVID-19; Z79.01 Long term (current) use of anticoagulants; Z79.899 Other long term (current) drug therapy
CPT/HCPCS: 0241U; 36415; 70450; 70490; 71045; 74176; 80048; 80053; 80076; 81001; 82140; 82803; 82947; 83605; 83690; 83735; 84145; 84484; 85025; 85027; 85610; 85730; 86140; 87040; 87086; 87088; 87186; 87324; 87493; 92526; 93005; 99285; C1758; J0131; J0696; J1650; J1920; J2185; J2543; J3370; J7120; P9047

== ENCOUNTER → 2024-04-19 13:20 | Outpatient (BNV) | payer MEDICARE, MEDICAID, SELFPAY | PROVIDERS: Admitting Provider Hospitalist; Emergency Provider Emergency Medicine; Visit Provider Internal Medicine Cardiovascular Disease | DX: R53.1 Weakness (principal); R94.31 Abnormal electrocardiogram [ECG] [EKG] | CPT/HCPCS: 93010 ==

== ENCOUNTER → 2024-04-19 13:20 | Outpatient (BNV) | payer MEDICARE, MEDICAID, SELFPAY | PROVIDERS: Emergency Provider Emergency Medicine; Visit Provider Radiology Diagnostic Radiology | DX: K11.8 Other diseases of salivary glands (principal); R41.82 Altered mental status, unspecified; I51.7 Cardiomegaly; I70.0 Atherosclerosis of aorta | CPT/HCPCS: 70450; 70490; 71045 ==

== ENCOUNTER → 2024-04-19 16:50 | Outpatient (BNV) | payer MEDICARE, MEDICAID, SELFPAY | PROVIDERS: Admitting Provider Hospitalist; Emergency Provider Emergency Medicine; PCP Internal Medicine; Visit Provider Internal Medicine | DX: N17.9 Acute kidney failure, unspecified (principal); G93.40 Encephalopathy, unspecified; D72.829 Elevated white blood cell count, unspecified; K11.21 Acute sialoadenitis | CPT/HCPCS: 99222 ==

== ENCOUNTER → 2024-04-19 16:50 | Outpatient (BNV) | payer MEDICARE, MEDICAID, SELFPAY | PROVIDERS: Admitting Provider Hospitalist; Emergency Provider Emergency Medicine; Visit Provider Hospitalist | DX: K11.21 Acute sialoadenitis (principal); E87.0 Hyperosmolality and hypernatremia; N17.9 Acute kidney failure, unspecified | CPT/HCPCS: 99223; 99232; 99233; 99239 ==

== ENCOUNTER 2024-07-28 10:36 | Outpatient (AMB) | payer MEDICARE, MEDICAID, SELFPAY ==
--- OUTSIDE RECORDS SUMMARY | 2024-07-28 11:26 | XMS_ITS | Encounter Summary ---
Author Organization [facility] Address [address] [place] [address] Care Team Providers Care Raw Products Director Name Role Phone Margie Noguera MD Primary Care Provider + Encounter Details Date Type Department Care Team (Late st Contact Info) Description 07/18/2024 Lab Requisition [facility] - Main Lab [address] [facility] [place] [address] Margie Noguera MD [address] [facility] [address] [place], [place] [id number] Urinary tract infection, site not specified Social History Tobacco Use Types Packs/Day Years Used Date Smoking Tobacco: Never Smokeless Tobacco: Never Alcohol Use Standard Drinks/Week Comments Yes 13.3 (1 standard drink = 0.6 oz pure alcohol) Comments Unknown Sex and Gender Information Value Date Recorded Sex Assigned at Not on file Legal Sex Female 9:23 AM EST Gender Identity Not on file Sexual Orientation Not on file documented as of this encounter Plan of Treatment Not on file documented as of this encounter Procedures Procedure Name Priority Date/Time Associated Diagnosis Comments URINALYSIS WITH REFLEX MICROSCOPIC Routine 07/17/2024 1:45 PM EDT Urinary tract infection, site not specified URINALYSIS WITH REFLEX MICROSCOPIC Routine 07/17/2024 1:45 PM EDT Urinary tract infection, site not specified CULTURE URINE Routine 07/17/2024 1:45 PM EDT Urinary tract infection, site not specified documented in this encounter Results * (ABNORMAL) Urinalysis with reflex microscopic (07/17/2024 1:45 PM EDT) Specific [place] Urine 1.007 1.003 - 1.030 LAB URINALYSIS - AUTOMATED METHOD 07/18/2024 11:13 AM [facility] pH, Urine 7.5 5.0 - 8.0 pH LAB URINALYSIS - AUTOMATED METHOD 07/18/2024 11:13 AM [facility] Leukocytes, Urine Large(A) Negative LAB URINALYSIS - AUTOMATED METHOD 07/18/2024 11:13 AM [facility] Nitrite, Urine Negative Negative LAB URINALYSIS - AUTOMATED METHOD 07/18/2024 11:13 AM [facility] Protein, Urine 100(A) <=Trace mg/dL LAB URINALYSIS - AUTOMATED METHOD 07/18/2024 11:13 AM [facility] Glucose, Urine Negative Negative mg/dL LAB URINALYSIS - AUTOMATED METHOD 07/18/2024 11:13 AM [facility] Ketones, Urine Negative Negative mg/dL LAB URINALYSIS - AUTOMATED METHOD 07/18/2024 11:13 AM [facility] Urobilinogen , Urine 0.2 0.2 - 1.0 mg/dL LAB URINALYSIS - AUTOMATED METHOD 07/18/2024 11:13 AM [facility] Bilirubin, Urine Negative Negative LAB URINALYSIS - AUTOMATED METHOD 07/18/2024 11:13 AM [facility] Blood, Urine Moderate(A) Negative LAB URINALYSIS - AUTOMATED METHOD 07/18/2024 11:13 AM [facility] RBC, Urine 2.1 0 - 4 /HPF LAB URINALYSIS - AUTOMATED METHOD 07/18/2024 11:13 AM [facility] WBC, Urine 20.0(H) 0 - 4 /HPF LAB URINALYSIS - AUTOMATED METHOD 07/18/2024 11:13 AM [facility] Squamous Epithelial, Urine 10 0 - 60 /LPF LAB URINALYSIS - AUTOMATED METHOD 07/18/2024 11:13 AM EDT [facility] Bacteria, Urine Many(A) Negative /HPF LAB URINALYSIS - AUTOMATED METHOD 07/18/2024 11:13 AM EDT [facility] Hyaline Casts, Urine 3.0 0 - 3 /LPF LAB URINALYSIS - AUTOMATED METHOD 07/18/2024 11:13 AM EDT [facility] Urine Urinary bladder structure / Unknown Non-blood Collection / Unknown 07/17/2024 1:45 PM EDT 07/18/2024 9:36 AM EDT us Margie Noguera MD LAB URINE ORDERABLES Fin al Result [facility] [address] [place] [address], * (ABNORMAL) Culture urine (07/17/2024 1:45 PM EDT) [facility] Signature Culture, Urine >100,000 CFU/mL Proteus mirabilis(A) YENNIFER 07/22/2024 9:44 AM EDT [facility] Comment: Edited result: Previously reported as Proteus species on 07/21/2024 at 1017 EDT. Culture, Urine >100,000 CFU/mL Morganella morganii ssp morganii(A) YENNIFER 07/22/2024 9:44 AM EDT [facility] Comment: The organism value for this result has been updated. These results have been appended to the previously preliminary verified report. This is an edited result. Previous organism was Gram negative bacilli on 07/21/2024 at 1017 EDT. Urine Urinary bladder structure / Unknown Non-blood Collection / Unknown 07/17/2024 1:45 PM EDT 07/18/2024 9:36 AM EDT Narrative Organism Antibiotic Method Susceptibility Proteus mirabilis Ampicillin/Sulbactam YENNIFER <=2 ug/ml: Susceptible Proteus mirabilis Piperacillin/Tazobactam YENNIFER <=4 ug/ml: Susceptible Proteus mirabilis Cefazolin (Urine) YENNIFER 4 ug/ml: Susceptible Proteus mirabilis Cefoxitin YENNIFER 8 ug/ml: Susceptible Proteus mirabilis Ceftazidime YENNIFER <=0.5 ug/ml: Susceptible Proteus mirabilis Ceftriaxone YENNIFER <=0.25 ug/ml: Susceptible Proteus mirabilis Cefepime YENNIFER <=0.12 ug/ml: Susceptible Proteus mirabilis Meropenem YENNIFER 1 ug/ml: Susceptible Proteus mirabilis Amikacin YENNIFER 4 ug/ml: Susceptible Proteus mirabilis Gentamicin YENNIFER <=1 ug/ml: Susceptible Proteus mirabilis Ciprofloxacin YENNIFER 0.25 ug/ml: Susceptible Proteus mirabilis Levofloxacin YENNIFER 0.5 ug/ml: Susceptible Proteus mirabilis Nitrofurantoin YENNIFER 128 ug/ml: Resistant Proteus mirabilis Trimethoprim/Sulfame thoxazo le YENNIFER 40 ug/ml: Susceptible Morganella morganii ssp morganii Amoxicillin/Clavulanate YENNIFER >=32 ug/ml: Resistant Morganella morganii ssp morganii Ampicillin/Sulbactam YENNIFER >=32 ug/ml: Resistant Morganella morganii ssp morganii Piperacillin/Tazobactam YENNIFER <=4 ug/ml: Susceptible Morganella morganii ssp morganii Cefoxitin YENNIFER 8 ug/ml: Susceptible Morganella morganii ssp morganii Meropenem YENNIFER 0.5 ug/ml: Susceptible Morganella morganii ssp morganii Amikacin YENNIFER 4 ug/ml: Susceptible Morganella morganii ssp morganii Ciprofloxacin YENNIFER 1 ug/ml: Resistant Morganella morganii ssp morganii Levofloxacin YENNIFER 1 ug/ml: Intermediate Morganella morganii ssp morganii Nitrofurantoin YENNIFER 64 ug/ml: Resistant Morganella morganii ssp morganii Trimethoprim/Sulfamethoxazo le YENNIFER <=20 ug/ml: Susceptible Margie Noguera MD LAB MICROBIOLOGY - GENER AL ORDERABLES Final Result [facility] [address] [place] [address], documented in this encounter Visit Diagnoses Diagnosis Urinary tract infection, site not specified documented in this encounter Care Teams Raw Products Director Relationship Specialty Start Date End Date Margie Noguera MD [address] [place] [address] PCP - General Family Medicine 05/30/24 documented as of this encounter
--- OUTSIDE RECORDS SUMMARY | 2024-07-28 11:26 | XMS_ITS | Encounter Summary ---
Author Organization [facility] Address [address] [place] [address] Care Team Providers Care Director Of Property Management Name Role Phone Margie Noguera MD Primary Care Provider + Encounter Details Date Type Department Care Team (Late st Contact Info) Description 05/31/2024 Lab Requisition [facility] - Main Lab [address] [facility] [place] [address] Margie Noguera MD [address] [facility] [address] [place], [place] [phone] Essential (primary) hypertension Social History Tobacco Use Types Packs/Day Years [...] Procedure Name Priority Date/Time Associated Diagnosis Comments BASIC METABOLIC PANEL Routine 06/01/2024 6:33 AM EST Essential (primary) hypertension documented in this encounter Results * (ABNORMAL) Basic metabolic panel (06/01/2024 6:33 AM EST) Sodium 139 133 - 145 mmol/L LAB CHEMISTRY METHOD 06/01/2024 8:56 AM EST [facility] Potassium 4.8 3.5 - 5.5 mmol/L LAB CHEMISTRY METHOD 06/01/2024 8:56 AM EST [facility] Chloride 107 96 - 110 mmol/L LAB CHEMISTRY METHOD 06/01/2024 8:56 AM [facility] CO2 28 21 - 32 mmol/L LAB CHEMISTRY METHOD 06/01/2024 8:56 AM [facility] Anion Gap 4 3 - 11 LAB CHEMISTRY METHOD 06/01/2024 8:56 AM [facility] Glucose 83 70 - 100 mg/dL LAB CHEMISTRY METHOD 06/01/2024 8:56 AM [facility] BUN 45(H) 5 - 25 mg/dL LAB CHEMISTRY METHOD 06/01/2024 8:56 AM [facility] Creatinine 1.25(H) 0.50 - 1.10 mg/dL LAB CHEMISTRY METHOD 06/01/2024 8:56 AM [facility] eGFR 45(L) >=60 mL/min/1. 73m2 LAB CHEMISTRY METHOD 06/01/2024 8:56 AM [facility] Comment:Calculation based on the??Chronic Kidney Disease Epidemiology Collaboration (CKD-EPI) equation refit??without adjustment for race. BUN/Creatinine Ratio 36.0 LAB CHEMISTRY METHOD 06/01/2024 8:56 AM [facility] Calcium 9.7 8.5 - 10.5 mg/dL LAB CHEMISTRY METHOD 06/01/2024 8:56 AM [facility] Blood Venous blood specimen / Unknown Venipuncture / Unknown 06/01/2024 6:33 AM EST 06/01/2024 8:07 AM EST us Margie Noguera MD LAB BLOOD ORDERABLES Fin al Result [facility] [address] [place] [address], documented in this encounter Visit Diagnoses Diagnosis Essential (primary) hypertension Unspecified essential hypertension documented in this encounter Care Teams Director Of Property Management Relationship Specialty Start Date End Date Margie Noguera MD [address] [place] [id number] PCP - General Family Medicine 05/30/24 documented as of this encounter
--- OUTSIDE RECORDS SUMMARY | 2024-07-28 11:26 | XMS_ITS | Clinical Summary ---
Author Organization [facility] Address [address] [place] [address] Phone Care Team Providers Care Flat Lock Operator Name Role Phone Elder, Margie Yeager MD Primary Care Provider + Allergies Active Allergy Reactions Criticality Noted Date Comments Aspirin 04/01/2005 Other Other 02/11/2009 Vitamin D abd cramping and pain/sg Oxycodone-Aspirin 04/01/2005 Percodan [oxycodone-aspirin] Medications atenoloL (TENORMIN) 50 mg tablet TAKE 1 TABLET BY MOUTH EVERY DAY 1 Active celecoxib (CeleBREX) 100 mg capsule Take 1 Cap by mouth 2 times daily. 1 Active dilTIAZem CD (CARDIZEM CD) 240 mg 24 hr capsule Take 1 capsule by mouth daily. 1 Active DULoxetine (CYMBALTA) [address] capsule Take 1 Cap by mouth daily. 1 Active FLUoxetine (PROzac) 20 mg capsule TAKE 1 CAPSULE BY MOUTH TWICE DAILY 1 Active fluticasone propionate (FLONASE) 50 mcg/actuation nasal spray 2 Sprays by Each Nare route daily. 0 Active hydroCHLOROthia zide 12.5 mg tablet Take 1 Tab by mouth daily. 1 Active lidocaine (LIDODERM) 5 % patch Place 1 Patch onto the skin every 12 hours. Apply for no more than 12 hours in any 24 hour period. 1 Active mirabegron (MYRBETRIQ) 25 mg 24 hr tablet Take 1 Tab by mouth daily. 9 Active nitrofurantoin (MACRODANTIN) 50 mg capsule Take 1 Cap by mouth at bedtime. 0 Active nystatin, bulk, 10 billion unit powder Apply under breasts bid 9 Active omeprazole (PriLOSEC) [address] capsule Take 1 capsule by mouth daily. 1 Active pantoprazole (PROTONIX) 20 mg EC tablet Take 1 Tab by mouth daily. 1 Active polyethylene glycol (MIRALAX) 17 gram packet Take 1 Packet by mouth daily. 1 Active pregabalin (LYRICA) 75 mg capsule TAKE 1 CAPSULE BY MOUTH TWICE DAILY 1 Active traMADoL (ULTRAM) 50 mg tablet 1 p.o. every 6 hours as needed moderately severe pain 9 Active traZODone (DESYREL) 50 mg tablet Take 1 Tab by mouth at bedtime. 1 Active Active Problems Problem Noted Date Diagnosed Date Essential hypertension 09/26/2018 Esophageal stricture 03/24/2018 Overview (04/04/2024): 03/15/2018---dilated to 17 mm; [email or web address]. Osteopenia 02/03/2018 Left breast mass 06/03/2017 Impaired fasting glucose 06/09/2016 Morbid obesity ([facility] V24, [facility] V28) 2013 Overview (04/04/2024): BMI 46.25 on 07/21/13. Chronic edema 03/22/2011 Abdominal hernia 08/11/2010 Overview (04/04/2024): right spigelian hernia Noted on CAT scan 2010No intervention as of July 2010 IMO update Chronic low back pain 05/24/2009 Depression 05/24/2009 Hyperlipidemia 04/27/2009 Vitamin D deficiency 01/11/2009 Hypertension 09/28/2008 Urinary incontinence 09/28/2008 Cerebral palsy ([facility] V24, [facility] V28) 2008 Allergic rhinitis 05/20/2006 Anxiety state 03/31/2005 Depressive disorder 03/31/2005 Esophageal reflux 03/31/2005 Encounters Date Type Department Care Team Description 07/18/2024 Lab Requisition [facility] - Main Lab [address] [facility] [place] [address] Margie Noguera MD Urinary tract infection, site not specified 07/12/2024 Lab Requisition [facility] - Main Lab [address] [place] [phone] Margie Noguera MD Candidiasis, unspecified 05/31/2024 Lab Requisition [facility] - Main Lab [address] [place] [phone] Margie Noguera MD Essential (primary) hypertension 05/30/2024 Lab Requisition [facility] - Main Lab [address] [place] [phone] Margie Noguera MD Other group home (current) drug therapy; Essential (primary) hypertension from Last 3 Months Immunizations Name Administration Dates Next Due Influenza Quadravalent, MDCK , 0.5ml, preservative free (Flucelvax) 6mo and older 02/16/2018 Influenza trivalent, with pr eservative (Fluzone; Afluria) 6mo and older 03/28/2015,03/20/2013,03/28/2012,01/08,01/04/2009 PPD Test 09/23/2017 Pneumococcal conjugate 13 va lent (Prevnar 13, PCV13) 2mo and older 07/13/2014 Pneumococcal polysaccharide 23 valent (Pneumovax 23) 2yo and older 07/21/2012 Surgical History Surgery Date Site/Laterality Comments OTHER SURGICAL HISTORY PROCEDURE: GA TOTAL ABDOMINAL HYSTERECT W/WO RMVL TUBE OVARY HERNIA REPAIR PROCEDURE: HISTORICAL HERNIA REPAIR/ING UPPER GASTROINTESTINAL ENDOSCOPY 03/15/2018 PROCEDURE: GA UPPER GI ENDOSCOPY PERFORMED; COMMENT: [facility]; small HH; benign stricture dilated to 17 mm. Medical History Medical History Date Comments Obesity, unspecified 03/31/2005 DX:Obesity, unspecified Essential hypertension, benign 03/31/2005 D X:Essential hypertension, benign Infantile cerebral palsy, unspecified 03/31/2005 DX:Infantile cerebral palsy, unspecified Esophageal reflux 03/31/2005 DX:Esophageal reflux Anxiety state, unspecified 03/31/2005 DX:An xiety state, unspecified Depressive disorder, not els ewhere classified 03/31/2005 DX:Depressive disorder, not elsewhere classified Cerebral palsy (CMS/HCC V24, CMS/HCC V28) 06/25/2008 DX:Cerebral palsy (HCC) Urinary incontinence 09/28/2008 DX:Urinary incontinence Hyperlipidemia 04/27/2009 DX:Hyperlipidemi a Hernia of unspecified site o f abdominal cavity without mention of obstruction or gangrene 08/11/2010 DX:Hernia of unspecified sit e of abdominal cavity without mention of obstruction or gangrene Esophageal stricture 03/24/2018 DX:Esophage al stricture; COMMENT: 03/15/2018---dilated to 17 mm; [email or web address]. Family History Medical History Relation Name Comments Breast cancer Aunt m ? age Arthritis Mother Breast cancer Other 1 MATERNAL COUSI N Other: OVARIAN CANCER Other 2 MATERA NAL COUSIN Other: BRAIN CANCER Other 3 SISTER Breast cancer Other 4 m cousin 38 Relation Name Status Comments Aunt m ? age Father Mother dm Other 1 Other 2 Other 3 Other 4 m cousin 38 Sister (Age 64) cancer Social History Tobacco Use Types Packs/Day Years Used Date Smoking Tobacco: Never Smokeless Tobacco: Never Alcohol Use Standard Drinks/Week Comments Yes 13.3 (1 standard drink = 0.6 oz pure alcohol) Comments Unknown Sex and Gender Information Value Date Recorded Sex Assigned at Not on file Legal Sex Female 9:23 AM EST Gender Identity Not on file Sexual Orientation Not on file Obstetrics History Plan of Treatment Health Maintenance Due Date Last Done Comments DTaP,Tdap,and Td Vaccines (1 - Tdap) 06/30/1966 Zoster Vaccines (1 of 2) 06/30/1997 Depression Screening 03/16/2022 Falls Risk Assessment 03/16/2022 Hepatitis C Screening 03/16/2022 Medicare Annual Wellness Visit 03/16/2022 Social Influencers of Health Screening 03/16/2022 RSV Immunization Adult Patients (1 - 1-dose 75+ series) 06/30/2022 COVID-19 Vaccine (2 - season) 2023 04/22/2020 Influenza Vaccine (Season Ended) 2024 02/16/2018, 03/28/2015, 03/20/2013, Additional history exists Cholesterol Screening (Lipid Panel) 02/19/2025 02/20/2020 Hypertension/CHF/CAD Annual BMP Blood Test 06/01/2025 06/01/2024, 02/20/2020 Osteoporosis Screening (Bone Density Screening) 02/03/2028 02/02/2018 Pneumococcal Vaccine: 50+ Years Completed 07/13/2014, 07/21/2012 Breast Cancer Screening Discontinued 06/27/2018, 05/28 HIB Vaccines Aged Out No longer eligi ble based on patient's age to complete this topic HPV Vaccines Aged Out No longer eligi ble based on patient's age to complete this topic Hepatitis A Vaccines Aged Out No long er eligible based on patient's age to complete this topic Hepatitis B Vaccines Aged Out No long er eligible based on patient's age to complete this topic IPV Vaccines Aged Out No longer eligi ble based on patient's age to complete this topic MMR Vaccines Aged Out No longer eligi ble based on patient's age to complete this topic Meningococcal ACWY Vaccine Aged Out N o longer eligible based on patient's age to complete this topic Meningococcal B Vaccine Aged Out No l onger eligible based on patient's age to complete this topic RSV Immunization Patients Under 20 months Aged Out No longer eligible based on patient's age to complete this topic Varicella Vaccines Aged Out No longer eligible based on patient's age to complete this topic Procedures Procedure Name Priority Date/Time Associated Diagnosis Comments URINALYSIS WITH REFLEX MICROSCOPIC Routine 07/17/2024 1:45 PM EDT Urinary tract infection, site not specified URINALYSIS WITH REFLEX MICROSCOPIC Routine 07/17/2024 1:45 PM EDT Urinary tract infection, site not specified CULTURE URINE Routine 07/17/2024 1:45 PM EDT Urinary tract infection, site not specified CULTURE GENITAL Routine 07/11/2024 12:00 AM EDT Candidiasis, unspecified BASIC METABOLIC PANEL Routine 06/01/2024 6:33 AM EST Essential (primary) hypertension LIPID PANEL Routine 02/20/2020 SCR MAMMO BI INCL CAD Routine 06/27/2018 2:22 PM EDT Encounter for screening mammogram for malignant neoplasm of breast DXA BONE DENSITY STUDY 1+ SITS AXIAL SKEL Routine 02/02/2018 1:56 PM EDT Encounter for screening for osteoporosis from Last 3 Months or Most Recently Relevant to Health Maintenance Results * (ABNORMAL) Urinalysis with reflex microscopic (07/17/2024 1:45 PM EDT) Specific [place] Urine 1.007 1.003 - 1.030 LAB URINALYSIS - AUTOMATED METHOD 07/18/2024 11:13 AM [facility] pH, Urine 7.5 5.0 - 8.0 pH LAB URINALYSIS - AUTOMATED METHOD 07/18/2024 11:13 AM [facility] Leukocytes, Urine Large(A) Negative LAB URINALYSIS - AUTOMATED METHOD 07/18/2024 11:13 AM [facility] Nitrite, Urine Negative Negative LAB URINALYSIS - AUTOMATED METHOD 07/18/2024 11:13 AM [facility] Protein, Urine 100(A) <=Trace mg/dL LAB URINALYSIS - AUTOMATED METHOD 07/18/2024 11:13 AM [facility] Glucose, Urine Negative Negative mg/dL LAB URINALYSIS - AUTOMATED METHOD 07/18/2024 11:13 AM [facility] Ketones, Urine Negative Negative mg/dL LAB URINALYSIS - AUTOMATED METHOD 07/18/2024 11:13 AM [facility] Urobilinogen , Urine 0.2 0.2 - 1.0 mg/dL LAB URINALYSIS - AUTOMATED METHOD 07/18/2024 11:13 AM [facility] Bilirubin, Urine Negative Negative LAB URINALYSIS - AUTOMATED METHOD 07/18/2024 11:13 AM [facility] Blood, Urine Moderate(A) Negative LAB URINALYSIS - AUTOMATED METHOD 07/18/2024 11:13 AM [facility] RBC, Urine 2.1 0 - 4 /HPF LAB URINALYSIS - AUTOMATED METHOD 07/18/2024 11:13 AM EDT [facility] WBC, Urine 20.0(H) 0 - 4 /HPF LAB URINALYSIS - AUTOMATED METHOD 07/18/2024 11:13 AM EDT [facility] Squamous Epithelial, Urine 10 0 - 60 /LPF LAB URINALYSIS - AUTOMATED METHOD 07/18/2024 11:13 AM EDT [facility] Bacteria, Urine Many(A) Negative /HPF LAB URINALYSIS - AUTOMATED METHOD 07/18/2024 11:13 AM EDT [facility] Hyaline Casts, Urine 3.0 0 - 3 /LPF LAB URINALYSIS - AUTOMATED METHOD 07/18/2024 11:13 AM [facility] Urine Urinary bladder structure / Unknown Non-blood Collection / Unknown 07/17/2024 1:45 PM EDT 07/18/2024 9:36 AM EDT Margie Noguera MD LAB URINE ORDERABLES Fin al Result [facility] [address] [place] [address], * (ABNORMAL) Culture urine (07/17/2024 1:45 PM EDT) Culture, Urine >100,000 CFU/mL Proteus mirabilis(A) YENNIFER 07/22/2024 9:44 AM EDT [facility] Comment: Edited result: Previously reported as Proteus species on 07/21/2024 at 1017 EDT. Culture, Urine >100,000 CFU/mL Morganella morganii ssp morganii(A) YENNIFER 07/22/2024 9:44 AM EDT [facility] Comment: The organism value for [...] MICROBIOLOGY - GENER AL ORDERABLES Final Result Performing Organization Address [facility]/ZIP Co de Phone Number [facility] [address] [place] [address], * Culture genital (07/11/2024 12:00 AM EDT) Pathologist [facility] Culture, Genital No yeast, Beta Strep group B, Neisseria gonorrhoeae, Listeria, Gardnerella vaginalis, or other predominant potentially significant pathogens noted. 07/16/2024 10:51 AM EDT [facility] Swab Cervix uteri structure / Unknown Non-blood Collection / Unknown 07/11/2024 07/12/2024 11:21 AM EDT Narrative [facility] - 07/16/2024 10:51 AM EDT Heavy growth of Gram Negative Bacilli, may be indicative of UTI. Margie Noguera MD LAB MICROBIOLOGY - GENER AL ORDERABLES Final Result Performing Organization Address [facility] Co de Phone Number [facility] [address] [place] [address], * (ABNORMAL) Basic metabolic panel (06/01/2024 6:33 AM EST) [facility] Sodium 139 133 - 145 mmol/L LAB CHEMISTRY METHOD 06/01/2024 8:56 AM EST [facility] Potassium 4.8 3.5 - 5.5 mmol/L LAB CHEMISTRY METHOD 06/01/2024 8:56 AM EST [facility] Chloride 107 96 - 110 mmol/L LAB CHEMISTRY METHOD 06/01/2024 8:56 AM EST [facility] CO2 28 21 - 32 mmol/L LAB CHEMISTRY METHOD 06/01/2024 8:56 AM EST [facility] Anion Gap 4 3 - 11 LAB CHEMISTRY METHOD 06/01/2024 8:56 AM [facility] Glucose 83 70 - 100 mg/dL LAB CHEMISTRY METHOD 06/01/2024 8:56 AM [facility] BUN 45(H) 5 - 25 mg/dL LAB CHEMISTRY METHOD 06/01/2024 8:56 AM [facility] Creatinine 1.25(H) 0.50 - 1.10 mg/dL LAB CHEMISTRY METHOD 06/01/2024 8:56 AM [facility] eGFR 45(L) >=60 mL/min/1. 73m2 LAB CHEMISTRY METHOD 06/01/2024 8:56 AM [facility] Comment:Calculation based on the??Chronic Kidney Disease Epidemiology Collaboration (CKD-EPI) equation refit??without adjustment for race. BUN/Creatinine Ratio 36.0 LAB CHEMISTRY METHOD 06/01/2024 8:56 AM [facility] Calcium 9.7 8.5 - 10.5 mg/dL LAB CHEMISTRY METHOD 06/01/2024 8:56 AM [facility] Blood Venous blood specimen / Unknown Venipuncture / Unknown 06/01/2024 6:33 AM EST 06/01/2024 8:07 AM EST Margie Noguera MD LAB BLOOD ORDERABLES Fin al Result [facility] [address] [place] [address], * (ABNORMAL) Lipid panel (02/20/2020) LDL/HDL Ratio 4 0 - 4 Triglycerides 171(A) 0 - 150 mg/dL Cholesterol 209(A) 0 - 200 mg/dL HDL 59 >=40 mg/dL LDL Cholesterol 116(A) 0 - 100 mg/dL Blood Venous blood specimen / Unknown Rancho Enriquez MD LAB BLOOD ORDERABLES Carrol l Result * SCR MAMMO BI INCL CAD (06/27/2018 2:22 PM EDT) Anatomical Region Laterality Modality Radiographic Daniela ging 05/28/2017 10:4 1 AM EST Narrative 06/28/2018 10:08 AM EDT This is a summary report. The complete report is available in the patient's medical record. If you cannot access the medical record, please contact the sending organization for a detailed fax or copy. Full field digital screening mammography, reviewed with CAD and compared to previous. ??The breasts are composed of fatty and fibroglandular tissue. ??No suspicious mass, architectural distortion or suspicious calcifications are identified. IMPRESSION: : No mammographic evidence of malignancy. BIRADS 1-Negative; N. 5 year breast cancer risk assessment 1.5 % Lifetime breast cancer risk assessment 4.5 % Breast cancer risk category Low (<15%) Procedure Note James Carter MD - 04/07/2022 This is a summary report. The complete report is available in thepatient's medical record. If you cannot access the medical record, pleasecontact the sending organization for a detailed fax or copy. Full field digital screening mammography, reviewed with CAD and comparedto previous. The breasts are composed of fatty and fibroglandular tissue.No suspicious mass, architectural distortion or suspicious calcificationsare identified. IMPRESSION: : No mammographic evidence of malignancy. BIRADS 1-Negative; N. 5 year breast cancer risk assessment 1.5 % Lifetime breast cancer risk assessment 4.5 % Breast cancer risk category Low (<15%) Claudio Walton MD IMG XR PROCEDURES Final Result * DXA BONE DENSITY STUDY 1+ SITS AXIAL SKEL (02/02/2018 1:56 PM EDT) Anatomical Region Laterality Modality Bone Densitometr y 10/06/2017 3:04 PM EDT Narrative 02/02/2018 2:19 PM EDT BONE DENSITY ? Lumbar Spine T-score is -1.2 ?? (SD relative to 20-29 y/o adult) Z-score is +0.9 ??(SD relative to age matched peers) This is consistent with osteopenia by criteria defined by the WHO. Left Hip T-score is -1.9 Z-score is -0.1 This is consistent with osteopenia by criteria defined by the WHO. Comparison exam(s): significant decrease in bone density of ??hip when compared to most recent bone density examination ?? Confidence level is +/-95%. Impression: Based on the World Health Organization criteria, Rain Solis should be classified as having osteopenia. This patient has a 9.9% risk of major osteoporotic fracture and a 1.7% risk of hip fracture over the next 10 years. (World Health Organization Fracture Risk Assessment) [facility] Department of Internal Medicine recommends using National Osteoporosis Foundation (NOF) guidelines in treatment decisions related to osteoporosis. NOF guidelines suggest considering treatment for postmenopausal women and men aged 50 or older presenting with the following: History of hip or vertebral fracture. T-score less than or equal to -2.5 (DXA) at the femoral neck, total hip, or spine, after appropriate evaluation to exclude secondary causes. Low bone mass (T-score between -1.0 and -2.5 at the femoral neck or spine) AND a 10-year probability of a hip fracture greater than or equal to 3% OR a 10-year probability of a major osteoporosis-related fracture greater than or equal to 20% based on the [place]-adapted WHO algorithm Please note that all treatment decisions require clinical judgment and consideration of individual patient factors, including patient preferences, co-morbidities, previous drug use, risk factors not captured in the FRAX model (e.g., frailty, falls, vitamin D deficiency, increased bone turnover, interval significant decline in bone density) and possible under- or over-estimation of fracture risk by FRAX. Procedure Note Tashi Turner MD - 04/07/2022 BONE DENSITY Lumbar Spine T-score is -1.2 (SD relative to 20-29 y/o adult) Z-score is +0.9 (SD relative to age matched peers) This is consistent with osteopenia by criteria defined by the WHO. Left Hip T-score is -1.9 Z-score is -0.1 This is consistent with osteopenia by criteria defined by the WHO. Comparison exam(s): significant decrease in bone density of hip whencompared to most recent bone density examination Confidence level is +/-95%. Impression: Based on the World Health Organization criteria, Rain Solis should beclassified as having osteopenia. This patient has a 9.9% risk of majorosteoporotic fracture and a 1.7% risk of hip fracture over the next 10years. (World Health Organization Fracture Risk Assessment) [facility] Department of Internal Medicine recommendsusing National Osteoporosis Foundation (NOF) guidelines in treatmentdecisions related to osteoporosis. NOF guidelines suggest consideringtreatment for postmenopausal women and men aged 50 or older presentingwith the following: History of hip or vertebral fracture. T-score less than or equal to -2.5 (DXA) at the femoral neck, total hip,or spine, after appropriate evaluation to exclude secondary causes. Low bone mass (T-score between -1.0 and -2.5 at the femoral neck or spine)AND a 10-year probability of a hip fracture greater than or equal to 3% ORa 10-year probability of a major osteoporosis-related fracture greaterthan or equal to 20% based on the [place]-adapted WHO algorithm Please note that all treatment decisions require clinical judgment andconsideration of individual patient factors, including patientpreferences, co-morbidities, previous drug use, risk factors not capturedin the FRAX model (e.g., frailty, falls, vitamin D deficiency, increasedbone turnover, interval significant decline in bone density) and possibleunder- or over-estimation of fracture risk by FRAX. Johnny MADISON IMTerence DXA PROCEDURES Final Result from Last 3 Months or Most Recently Relevant to Health Maintenance Insurance MEDICARE Advance Directives Documents on File Type Date Recorded Patient Disabilities Services Officer Expl anation Health Care Decision (hx) 11/20/2020 AD HANEY DIRECTIVE Health Care Decision (hx) 11/19/2020 AD HANEY DIRECTIVE Health Care Decision (hx) 12/07/2013 AD HANEY DIRECTIVE Health Care Decision (hx) 12/07/2013 AD HANEY DIRECTIVE Health Care Decision (hx) 12/07/2013 AD HANEY DIRECTIVE Health Care Decision (hx) 12/07/2013 AD HANEY DIRECTIVE Health Care Decision (hx) 12/07/2013 AD HANEY DIRECTIVE Health Care Decision (hx) 12/07/2013 AD HANEY DIRECTIVE Health Care Decision (hx) 12/07/2013 AD HANEY DIRECTIVE Health Care Decision (hx) 12/07/2013 AD HANEY DIRECTIVE Health Care Decision (hx) 12/07/2013 AD HANEY DIRECTIVE Care Teams Flat Lock Operator Relationship Specialty Start Date End Date Margie Noguera MD [address] [place] [address] PCP - General Family Medicine 05/30/24
--- OUTSIDE RECORDS SUMMARY | 2024-07-28 11:26 | XMS_ITS | Encounter Summary ---
Author Organization [facility] Address [address] [place] [address] Care Team Providers Care Occupational Nurse Name Role Phone Margie Noguera MD Primary Care Provider + Encounter Details Date Type Department Care Team (Late st Contact Info) Description 07/12/2024 Lab Requisition [facility] - Main Lab [address] [facility] [place] [address] Margie Noguera MD [address] [facility] [address] [place], [place] [id number] Candidiasis, unspecified Social History Tobacco Use Types Packs/Day Years [...] Procedure Name Priority Date/Time Associated Diagnosis Comments CULTURE GENITAL Routine 07/11/2024 12:00 AM EDT Candidiasis, unspecified documented in this encounter Results * Culture genital (07/11/2024 12:00 AM EDT) Culture, Genital No yeast, Beta Strep group B, Neisseria gonorrhoeae, Listeria, Gardnerella vaginalis, or other predominant potentially significant pathogens noted. 07/16/2024 10:51 AM EDT [facility] ([facility]) [facility] Swab Cervix uteri structure / Unknown Non-blood Collection / Unknown 07/11/2024 07/12/2024 11:21 AM EDT Narrative [facility] - 07/16/2024 10:51 AM EDT Heavy growth of Gram Negative Bacilli, may be indicative of UTI. Margie Noguera MD LAB MICROBIOLOGY - GENER AL ORDERABLES Final Result [facility] ([facility]) [facility] [address] [place] [address], documented in this encounter Visit Diagnoses Diagnosis Candidiasis, unspecified documented in this encounter Care Teams Occupational Nurse Relationship Specialty Start Date End Date Margie Noguera MD [address] [place] [id number] PCP - General Family Medicine 05/30/24 documented as of this encounter
--- OUTSIDE RECORDS SUMMARY | 2024-07-28 11:26 | XMS_ITS | Encounter Summary ---
Author Organization [facility] Address [address] [place] [address] Care Team Providers Care Link Trainer Mechanic Name Role Phone Margie Noguera MD Primary Care Provider + Encounter Details Date Type Department Care Team (Late st Contact Info) Description 05/30/2024 Lab Requisition [facility] - Main Lab [address] [facility] [place] [address] Margie Noguera MD [address] [id number] Other [facility] (current) drug therapy; Essential (primary) hypertension Social History Tobacco Use [...] on file documented as of this encounter Visit Diagnoses Diagnosis Other [facility] (current) drug therapy Essential (primary) hypertension Unspecified essential hypertension documented in this encounter Care Teams Link Trainer Mechanic Relationship Specialty Start Date End Date Margie Noguera MD [address] [phone] PCP - General Family Medicine 05/30/24 documented as of this encounter
--- NOTE | 2024-07-28 11:27 | A.OFFVIS_ITS ---
Intake Visit Reasons: [facility] reff /pseudomonas uti Allergies aspirin [ASPIRIN] Allergy (Unknown, Verified 04/19/24 13:11) VOMITING ibuprofen [IBUPROFEN] Allergy (Unknown, Verified 04/19/24 13:11) VOMITING oxycodone [OXYCODONE] Allergy (Unknown, Verified 04/19/24 13:11) UNKNOWN HPI HPI c reff /pseudomonas uti: Details: I had seen her in April with leukocytosis. She has had UTIs in past. She reports using no catheter but diapers and reports no bedsores. She has no fever or hematuria and no dysuria. She has had multiple collections of urine and even a genital culture showing varying gram negative organisms that are chronic colonizers. [facility] Medical History (Updated 07/28/24 @ 11:34 by Hanna Aguilar MD) C. 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 Thrombocytosis DM2 (diabetes mellitus, type 2) Cerebral palsy Social History Household Members: Unknown / Unable to assess Housing: Unknown / Unable to assess Patient Tobacco Use Status: Tobacco use Unknown service: No Review of Systems Const All systems reviewed & are unremarkable except as noted in HPI and below Physical Exam Const General: cooperative Orientation/consciousness: patient oriented x3 HEENT Head: Yes normal to inspection Mouth: Normal oral and palatal mucosa present Eyes General: appearance normal, both eyes and all related structures Pupils: Equal, round and reactive pupils present Resp Effort & Inspection: normal respiratory effort Cardio Rate: regular rate Rhythm: regular rhythm GI Palpation (GI): Soft to palpation and nontender General: Yes no CVA tenderness Back/Spine/Pelvis Back: no CVA tenderness Skin General skin exam: no rashes or lesions noted Neuro General: patient oriented x3 Cranial nerves: Yes CN's II-XII intact bilaterally and Yes Equal, round and reactive pupils present Extrem General: Yes normal to inspection Psych Appearance: grossly normal Assessment & Plan Assessment & Plan (1) Bacteriuria: Comment: Stop checking urinalysis and genital culture. Patient not symptomatic. Code(s): R82.71 - Bacteriuria Category: Medical Plan: na (2) C. difficile colitis: Comment: still reports some diarrhea Code(s): A04.72 - Enterocolitis due to Clostridium difficile, not specified as recurrent Category: Medical Plan: po Vancomycin taper 125 qid one week,125 tid one week,125 bid one week,125 daily one week and then every ,,Wednesday 125 mg indefinitely. Coding Level of Care Code Est Pt Level 3 (61035) Diagnoses Bacteriuria R82.71 C. difficile colitis A04.72
== END 2024-07-28 11:29 | disposition home or self-care (01) ==
PROVIDERS: PCP Internal Medicine; Visit Provider Internal Medicine
DX: R82.71 Bacteriuria (principal); A04.72 Enterocolitis due to Clostridium difficile, not specified as recurrent
CPT/HCPCS: 99213

== ENCOUNTER → 2024-07-28 10:36 | Outpatient (BNVA) | payer MEDICARE, MEDICAID, SELFPAY | PROVIDERS: PCP Internal Medicine; Visit Provider Internal Medicine | DX: R82.71 Bacteriuria (principal); A04.72 Enterocolitis due to Clostridium difficile, not specified as recurrent | CPT/HCPCS: 99212 ==